=== PATIENT | female | born 1955 | race Caucasian/White ===

== ENCOUNTER → 2016-11-22 | Outpatient (CLI) | payer MEDICARE, MEDICAID ==
--- NOTE | 2016-11-22 13:51 | Diagnostic Imaging Report ---
INDICATION: Right hip pain. COMPARISON: None. FINDINGS: Two views of the right hip show no fractures, dislocations, or other acute bony abnormalities identified. Joint spaces are well maintained throughout. The soft tissues appear unremarkable. No radiopaque foreign bodies are identified. IMPRESSION: No acute fractures or dislocations of the right hip. Dictated by: Dictated on workstation # [id number]
== END ==
LOC: RAD 13:17
PROVIDERS: ATTEND Family Medicine
DX: M25.551 Pain in right hip (principal)
CPT/HCPCS: 73502

== ENCOUNTER 2016-12-27 07:06 | Emergency (ER) | payer MEDICARE, MEDICAID ==
[~2016-12-27] VITALS: Ht 170.2 cm; Wt 77.1 kg
[2016-12-27] MEDS ORDERED: TETANUS,DIPTH,PERTUSS P/F (BOOSTRIX) 0.5 ML VIAL IM ONE (07:45)
[2016-12-27] MEDS ORDERED: L.E.T. SYRINGE 5 ML TOP ONE (07:45)
--- NOTE | 2016-12-27 08:13 | ED Fall/Injury ---
General Chief Complaint: Trauma-Non Activation Stated Complaint: FALL/HEAD LAC Nursing Triage Note: PT BROUGHT TO ED BY STAFF, PT FELL AT HOME TODAY, SLIPPED IN BATHROOM AND HIT HEAD HAS APPROX 2CM LAC ABOVE R EYE. BLEEDING CONTROLLED SMALL AMOUNT OF SWELLING NOTED. PT FROM RETIREMENT AND HAS STAFF PRESENT. Source: caregiver Exam Limitations: clinical condition History of Present Illness Time seen by provider: 07:25 Initial Comments This 61-year-old woman with MR and autism is brought to the emergency room by a care provider with complaints of fall and head injury. Fall was witnessed by the nighttime care provider who stated patient slipped on the hard floor carrying her clothes out of the bathroom. She struck her head on the corner of the wall. There was no loss of consciousness and no vomiting. Patient cannot communicate symptoms as she is nonverbal. Behavior has been relatively normal except patient is grinding her teeth more than usual and is slightly hyper. There are no other obvious injuries. Care provider does not believe patient injured her neck and states she likely would not tolerate a c-collar. Patient appears nontender on exam of the neck and is moving her head and neck freely. She has a 2 cm laceration at the right brow. Location Injury Occurred: HOME Allergies and Home Medications Allergies Coded Allergies: No Known Drug Allergies (Unverified , 12/27/16) Constitutional: see HPI Eyes: No Symptoms Reported Ears, Nose, Mouth, Throat: see HPI Respiratory: no symptoms reported Cardiovascular: no symptoms reported Gastrointestinal: no symptoms reported Genitourinary: no symptoms reported : No Musculoskeletal: no symptoms reported Skin: see HPI Psychiatric/Neurological: See HPI Past Uutlfgq-Hyvrdh-Whxmvw Hx Patient Social History Alcohol Use: Denies Use Recreational Drug Use: No Smoking Status: Never a Smoker Recent Foreign Travel: No Contact w/Someone Who Travel: No Recent Infectious Disease Expo: No Recent Hopitalizations: No Immunizations Up To Date Tetanus Booster (TDap): Unknown Surgeries HX Surgeries: No Respiratory Hx Respiratory Disorders: No Cardiovascular Hx Cardiac Disorders: Yes (autism, OCD, MR) Neurological Hx Neurological Disorders: No Reproductive System : No Genitourinary Hx Genitourinary Disorders: No Gastrointestinal Hx Gastrointestinal Disorders: No Musculoskeletal Hx Musculoskeletal Disorders: No Endocrine Hx Endocrine Disorders: No HEENT HX ENT Disorders: No Cancer Hx Cancer: No Psychosocial Hx Psychiatric Problems: Yes (OCD, autism, and MR) Behavioral Health Disorders: Anxiety, Bipolar Integumentary HX Skin/Integumentary Disorder: No Physical Exam Vital Signs Vital Sign - Last 12Hours 12/27/16 07:10 Temp 97.4 Pulse 100 Resp 18 B/P (MAP) 140/92 Pulse Ox 96 Capillary Refill : Less Than 3 Seconds General Appearance: WD/WN, mild distress (teeth grinding) HEENT: PERRL/EOMI, normal ENT inspection, TMs normal, other (no obvious dental injury. 2 cm laceration above the right brow) Neck: non-tender, full range of motion, supple, normal inspection Cardiovascular: regular rate, rhythm, no edema, no murmur Respiratory: lungs clear, normal breath sounds, no respiratory distress, no accessory muscle use Gastrointestinal: normal bowel sounds, non tender, soft Extremities: non-tender, normal inspection, no pedal edema Neurologic/Psychiatric: no motor/sensory deficits, alert Skin: normal color, warm/dry Alicia Coma Score Best Eye Response: (4) Open Spontaneously Best Verbal Response: (5) Oriented (at baseline) Best Motor Response: (6) Obeys Commands Laceration Repair : Wound Location: Face Wound Length (cm): 2 Wound's Depth, Shape: linear, sub Q Wound Explored: clean Irrigated w/ Saline (ccs): 100 Betadine Prep?: Yes Suture: Prolene Suture Size: 5-0 Number of Sutures: 2 Sterile Dressing Applied?: Yes Progress Wound was anesthetized with LET. Skin and wound were cleaned with sterile saline and chlorhexidine soap. Wound was then rinsed with sterile saline. Betadine was applied. Two 5-0 Prolene sutures were placed to approximate the wound. Patient tolerated the procedure well. Sutures were selected rather than glue because of patient's picking behaviors. Care provider felt sutures would be more appropriate. Progress/Results/Core Measures Results/Orders My Orders Orders - KHANG GRECO MD Ct Head/Cervical Spine Wo (12/27/16 07:34) Let Solution (Let Solution) (12/27/16 07:45) Dipht,Pertuss(Acell),Tet Adult (Boostrix (12/27/16 07:45) Medications Given in ED Current Medications Medications Dose Ordered Sig/Bernardino Route Start Time Stop Time Status Last Admin Dose Admin Diphtheria/ Tetanus/Acell Pertussis 0.5 ml ONCE ONCE IM 12/27/16 07:45 12/27/16 07:46 DC 12/27/16 08:12 0.5 ML Tetracaine/ Epinephrine/ Lidocaine 1 ea ONCE ONCE TOP 12/27/16 07:45 12/27/16 07:46 DC 12/27/16 07:42 1 EA Vital Signs/I&O Vital Sign - Last 12Hours 12/27/16 12/27/16 07:10 09:00 Temp 97.4 Pulse 100 90 Resp 18 18 B/P (MAP) 140/92 Pulse Ox 96 98 Blood Pressure Mean: 108 Progress Note : Progress Note Wound was approximated with suture. Boostrix tetanus immunization was administered. CT scan was negative for acute injuries. Diagnostic Imaging Diagonstic Imaging: CT Plain Films/CT/US/NM/MRI: c-spine, head Comments CT head and cervical spine viewed by me. Report reviewed. See report below: NAME: ARIELLE HUBBARD MED REC#: [id number] PT STATUS: REG ER : 1955 PHYSICIAN: KHANG GRECO MD ADMIT DATE: 12/27/16/ER Draft Date of Exam:12/27/16 CT HEAD/CERVICAL SPINE WO PROCEDURE: CT head and CT cervical spine without contrast. TECHNIQUE: Multiple contiguous axial images were obtained through the brain and cervical spine without the use of intravenous contrast. Sagittal and coronal reformations through the cervical spine were then performed. INDICATION: Fall. Laceration to the head. Cut above the right eye The ventricles are normal in size, shape and position. There is no acute parenchymal hemorrhage, edema or mass. There is no extra-axial mass or hemorrhage. There is no skull fracture. There is mild scalp edema in the right frontal region. There is normal height and alignment of the cervical vertebral bodies. There are mild degenerative changes present. There is no spinal canal encroachment. There is no fracture or other acute abnormality. IMPRESSION: CT of the head shows no acute intracranial abnormality with a scalp laceration on the right. CT of the cervical spine shows degenerative changes with no acute abnormality. Dictated on workstation # [id number] Dict: 12/27/1603 Trans: 12/27/16 0814 [facility] [place] [id number] Interpreted by: CAROL BRAN MD Departure Impression Impression: Primary Impression: Fall on same level from slipping Qualified Codes: W01.0XXA - Fall on same level from slipping, tripping and stumbling without subsequent striking against object, initial encounter Additional Impression: Laceration of forehead Qualified Codes: S01.81XA - Laceration without foreign body of other part of head, initial encounter Disposition: 01 HOME, SELF-CARE Condition: Improved Departure-Patient Inst. Decision time for Depature: 08:28 Referrals: EVE SOSA DO (PCP/Family) Primary Care Physician Patient Instructions: Laceration Repair With Stitches (DC) Add. Discharge Instructions: Keep the wound clean and dry except for usual bathing. Do not scrub directly over the sutures. Do not submerge until sutures are removed. Have sutures removed in 5-7 days. You may return to the emergency room to have them removed. You may cover sutures with a Band-Aid. Antibiotic ointment may be used to prevent dressing from sticking to the wound. Monitor the wound for infection. Signs of infection would include increasing swelling, increasing redness, fever, puslike drainage, or increasing pain. Return to care if you notice these symptoms. Return to emergency room if she develops vomiting, increased pain, or any other unusual symptoms. All discharge instructions reviewed with patient and/or family. Voiced understanding. KHANG GRECO MD Dec 27, 2016 08:13
[2016-12-27 09:00] VITALS: BP 136/90
== END 2016-12-27 09:01 | disposition home or self-care (01) ==
LOC: EDUNIT# 07:06 → ER 07:08
DX: S09.90XA Unspecified injury of head, initial encounter (principal); S01.81XA Laceration without foreign body of other part of head, initial encounter; F84.0 Autistic disorder; F42.9 Obsessive-compulsive disorder, unspecified; F41.9 Anxiety disorder, unspecified; F31.9 Bipolar disorder, unspecified; Z23 Encounter for immunization; W01.198A Fall on same level from slipping, tripping and stumbling with subsequent striking against other object, initial encounter; Y92.002 Bathroom of unspecified non-institutional (private) residence as the place of occurrence of the external cause
CPT/HCPCS: 12011; 70450; 72125; 90471; 90715

== ENCOUNTER 2017-09-25 19:19 | Inpatient (IN) | payer MEDICARE, MEDICAID ==
[~2017-09-25] VITALS: Ht 175.3 cm; Wt 64.6 kg
[2017-09-25] VITALS (12 sets, daily range): BP systolic 100–133; BP diastolic 65–106
[2017-09-25 19:41] LABS: ABG BASE EXCESS -7.9 MMOL/L (-2.5-2.5); ABG OXYGEN SATURATION 100 % (94-100); ABG PCO2 39 MMHG (35-45); ABG PO2 154 MMHG (79-93); ABG TCO2 18.9 MMOL/L (21.0-31.0)
[2017-09-25 19:46] LABS: BASOPHILS % (AUTO) 0 % (0-10); EOSINOPHILS # (AUTO) 0.1 10^3/uL (0.0-0.3); EOSINOPHILS % (AUTO) 1 % (0-10); HEMATOCRIT 21 % (35-52); LYMPHOCYTES # (AUTO) 1.3 X 10^3 (1.0-4.0); LYMPHOCYTES % (AUTO) 14 % (12-44); MEAN CORPUSCULAR HEMOGLOBIN 19 PG (25-34); MEAN CORPUSCULAR HGB CONC 28 G/DL (32-36); MEAN CORPUSCULAR VOLUME 67 FL (80-99); MEAN PLATELET VOLUME 9.6 FL (7.4-10.4); MONOCYTES # (AUTO) 0.8 X 10^3 (0.0-1.0); MONOCYTES % (AUTO) 9 % (0-12); NEUTROPHILS # (AUTO) 7.1 X 10^3 (1.8-7.8); NEUTROPHILS % (AUTO) 76 % (42-75); PLATELET COUNT 563 10^3/uL (130-400); RED BLOOD COUNT 3.07 10^6/uL (4.35-5.85); RED CELL DISTRIBUTION WIDTH 18.7 % (10.0-14.5); WHITE BLOOD COUNT 9.3 10^3/uL (4.3-11.0)
[2017-09-25 19:46] LABS: ABG PH 7.28 (7.37-7.43); ALLENS TEST POSITIVE; INSPIRED O2 15 L; VENTILATOR NO
[2017-09-25 19:50] LABS: HEMOGLOBIN 5.8 G/DL (11.5-16.0)
[2017-09-25 19:51] LABS: BILIRUBIN,URINE NEGATIVE (NEGATIVE); CLARITY,URINE CLEAR; COLOR,URINE YELLOW; GLUCOSE, URINE (UA) NEGATIVE (NEGATIVE); KETONES,URINE 1+ (NEGATIVE); LEUKOCYTE ESTERASE ,URINE 3+ (NEGATIVE); NITRITE,URINE NEGATIVE (NEGATIVE); PH,URINE 5 (5-9); PROTEIN,URINE 1+ (NEGATIVE); UROBILINOGEN,URINE NORMAL (NORMAL)
--- NOTE | 2017-09-25 19:55 | ED Neurological Problem ---
General Chief Complaint: Altered Mental Status Stated Complaint: SEIZURES Source: patient Exam Limitations: no limitations History of Present Illness Date Seen by Provider: Sep 25, 2017 Time Seen by Provider: 19:55 Initial Comments [facility] ER [facility] in [place]. Patient is mentally retarded and autistic. She's been unusually lethargic today and holding her head as if she heard according to staff. This evening after dinner she appeared to have 2 episodes of seizure-like activity. She does not have a known seizure disorder but her twin sister does. Upon arrival to ER her oxygen saturation is 55-60% with good waveform and minimal respiratory effort. She has a very wet sounding cough. She is afebrile. Severity: moderate Allergies and Home Medications Allergies Coded Allergies: No Known Drug Allergies (Unverified , 12/27/16) Home Medications Acetaminophen 325 Mg Tablet, 650 MG PO Q4H PRN for PAIN-MILD, (Reported) TAKES 2 (325MG) TABLETS Bisacodyl 5 Mg Tablet.dr, 10 MG PO MoWeFr@1600, (Reported) TAKES 2 (5MG) TABLETS MON, WED, MON @ 1600 Clonazepam 2 Mg Tablet, 2 MG PO 1600, (Reported) Docusate Calcium 240 Mg Capsule, 240 MG PO DAILY, (Reported) Loratadine 10 Mg Tablet, 10 MG PO DAILY, (Reported) Magnesium Hydroxide 400 Mg/5 Ml Oral.susp, 30 ML PO DAILY PRN for CONSTIPATION- 7TH LINE, (Reported) Multivitamin 1 Each Tablet, 1 TAB PO DAILY, (Reported) Polyethylene Glycol 3350 17 Gm Powd.pack, 17 GM PO BID PRN for CONSTIPATION-2ND LINE, (Reported) Promethazine HCl/Codeine 118 Ml Syrup, 10 ML PO Q8H PRN for COUGH, (Reported) Sennosides/Docusate Sodium 1 Each Tablet, 1 TAB PO DAILY, (Reported) Patient Home Medication List Home Medication List Reviewed: Yes Constitutional: see HPI Eyes: No Symptoms Reported Ears, Nose, Mouth, Throat: no symptoms reported Respiratory: see HPI, cough Cardiovascular: no symptoms reported Genitourinary: no symptoms reported Musculoskeletal: see HPI Skin: no symptoms reported Psychiatric/Neurological: No Symptoms Reported Endocrine: No Symptoms Reported Past Wahhyuw-Rzcbya-Eogaqt Hx Patient Social History Alcohol Use: Denies Use Recreational Drug Use: No Smoking Status: Unknown if Ever Smoked Recent Hopitalizations: No Physical Abuse: No Sexual Abuse: No Mistreated: No Fear: No Immunizations Up To Date Tetanus Booster (TDap): Unknown Surgeries History of Surgeries: No Respiratory History of Respiratory Disorde: No Cardiovascular History of Cardiac Disorders: Yes (autism, OCD, MR) Neurological History of Neurological Disord: No Genitourinary History of Genitourinary Disor: No Gastrointestinal History of Gastrointestinal Di: Yes (nausea) Gastrointestinal Disorders: Chronic Constipation Musculoskeletal History of Musculoskeletal Dis: No Endocrine History of Endocrine Disorders: No Cancer History of Cancer: No Psychosocial History of Psychiatric Problem: Yes (AUTISM,OCD,INTELLECTUAL DISORDER) Behavioral Health Disorders: Anxiety, Bipolar Suicide Risk Score: 0 Integumentary History of Skin or Integumenta: No Physical Exam Vital Signs Vital Signs - First Documented 09/25/17 09/25/17 09/25/17 19:36 19:47 21:14 Temp 98.0 Pulse 81 Resp 17 B/P (MAP) 101/58 (72) Pulse Ox 100 O2 Delivery Non Rebreather O2 Flow Rate 100.00 FiO2 40 Capillary Refill : General Appearance: WD/WN, no apparent distress, other (does not respond to verbal stimuli. ) HEENT: PERRL/EOMI, normal ENT inspection Neck: non-tender, full range of motion Respiratory: no accessory muscle use, rales, rhonchi Cardiovascular: regular rate, rhythm, no murmur Gastrointestinal: normal bowel sounds, non tender, soft Extremities: normal range of motion, non-tender Skin: normal color, warm/dry Focused Exam Evaluation Lactate Level Laboratory Tests 09/25/17 19:35: Lactic Acid Level 10.66*H 09/25/17 21:45: Lactic Acid Level 1.75 Lactic Acid Level Laboratory Tests Test 09/25/17 19:35 09/25/17 21:45 Lactic Acid Level 10.66 MMOL/L (0.50-2.00) *H 1.75 MMOL/L (0.50-2.00) Laceration Repair : Suture Size: 5-0 Progress/Results/Core Measures Results/Orders Lab Results Laboratory Tests Test 09/25/17 19:28 09/25/17 19:29 09/25/17 19:35 09/25/17 19:41 Range/Units White Blood Count 9.3 4.3-11.0 10^3/uL Red Blood Count 3.07 L 4.35-5.85 10^6/uL Hemoglobin 5.8 *L 11.5-16.0 G/DL Hematocrit 21 L 35-52 % Mean Corpuscular Volume 67 L 80-99 FL Mean Corpuscular Hemoglobin 19 L 25-34 PG Mean Corpuscular Hemoglobin Concent 28 L 32-36 G/DL Red Cell Distribution Width 18.7 H 10.0-14.5 % Platelet Count 563 H 130-400 10^3/uL Mean Platelet Volume 9.6 7.4-10.4 FL Neutrophils (%) (Auto) 76 H 42-75 % Lymphocytes (%) (Auto) 14 12-44 % Monocytes (%) (Auto) 9 0-12 % Eosinophils (%) (Auto) 1 0-10 % Basophils (%) (Auto) 0 0-10 % Neutrophils # (Auto) 7.1 1.8-7.8 X 10^3 Lymphocytes # (Auto) 1.3 1.0-4.0 X 10^3 Monocytes # (Auto) 0.8 0.0-1.0 X 10^3 Eosinophils # (Auto) 0.1 0.0-0.3 10^3/uL Basophils # (Auto) 0.0 0.0-0.1 10^3/uL Sodium Level 133 L 135-145 MMOL/L Potassium Level 3.9 3.6-5.0 MMOL/L Chloride Level 103 98-107 MMOL/L Carbon Dioxide Level 17 L 21-32 MMOL/L Anion Gap 13 5-14 MMOL/L Blood Urea Nitrogen 13 7-18 MG/DL Creatinine 1.04 0.60-1.30 MG/DL Estimat Glomerular Filtration Rate 54 BUN/Creatinine Ratio 13 Glucose Level 174 H 70-105 MG/DL Calcium Level 8.5 8.5-10.1 MG/DL Total Bilirubin 0.1 0.1-1.0 MG/DL Aspartate Amino Transf (AST/SGOT) 17 5-34 U/L Alanine Aminotransferase (ALT/SGPT) 11 0-55 U/L Alkaline Phosphatase 66 40-136 U/L Troponin I < 0.30 <0.30 NG/ML Total Protein 7.3 6.4-8.2 GM/DL Albumin 3.7 3.2-4.5 GM/DL Blood Gas Puncture Site LEFT RADIAL Blood Gas Patient Temperature 98.0 Arterial Blood pH 7.28 *L 7.37-7.43 Arterial Blood Partial Pressure CO2 39 35-45 MMHG Arterial Blood Partial Pressure O2 154 H 79-93 MMHG Arterial Blood HCO3 18 L 23-27 MMOL/L Arterial Blood Total CO2 18.9 L 21.0-31.0 MMOL/L Arterial Blood Oxygen Saturation 100 94-100 % Arterial Blood Base Excess -7.9 L -2.5-2.5 MMOL/L Pedro Test POSITIVE Blood Gas Ventilator Setting NO Blood Gas Inspired Oxygen 15 L Lactic Acid Level 10.66 *H 0.50-2.00 MMOL/L Urine Color YELLOW Urine Clarity CLEAR Urine pH 5 5-9 Urine Specific Paulina 1.030 H 1.016-1.022 Urine Protein 1+ H NEGATIVE Urine Glucose (UA) NEGATIVE NEGATIVE Urine Ketones 1+ H NEGATIVE Urine Nitrite NEGATIVE NEGATIVE Urine Bilirubin NEGATIVE NEGATIVE Urine Urobilinogen NORMAL NORMAL MG/DL Urine Leukocyte Esterase 3+ H NEGATIVE Urine RBC (Auto) NEGATIVE NEGATIVE Urine RBC NONE /HPF Urine WBC 10-25 H /HPF Urine Crystals NONE /LPF Urine Bacteria MODERATE H /HPF Urine Casts NONE /LPF Urine Mucus SMALL H /LPF Urine Culture Indicated YES Test 09/25/17 21:45 Range/Units Lactic Acid Level 1.75 0.50-2.00 MMOL/L My Orders Orders - VIOLETA HERNANDEZ APRN Cbc With Automated Diff (09/25/17 19:37) Comprehensive Metabolic Panel (09/25/17 19:37) Ua Culture If Indicated (09/25/17 19:37) Saline Lock/Iv-Start (09/25/17 19:37) Ct Head Wo (09/25/17 19:37) Chest 1 View, Ap/Pa Only (09/25/17 19:37) Arterial Blood Gas (09/25/17 19:37) Blood Culture (09/25/17 19:37) Lactic Acid Analyzer (09/25/17 19:37) Troponin I (09/25/17 19:37) Ekg Tracing (09/25/17 19:37) Type And Screen (09/25/17 19:50) Red Cells Leukocytes Reduced (09/25/17 19:50) Urine Culture (09/25/17 19:41) Lactated Ringers (Lr 1000 Ml Iv Solution (09/25/17 20:15) Ns Iv 1000 Ml (Sodium Chloride 0.9%) (09/25/17 20:59) Piperacillin Sodium/Tazobactam (Zosyn Vi (09/25/17 21:15) Ns Iv 1000 Ml (Sodium Chloride 0.9%) (09/25/17 21:30) Lorazepam Injection (Ativan Injection) (09/25/17 21:50) Lorazepam Injection (Ativan Injection) (09/25/17 22:00) Medications Given in ED Current Medications Medications Dose Ordered Sig/Bernardino Route Start Time Stop Time Status Last Admin Dose Admin Lorazepam 1 mg ONCE ONCE IVP 09/25/17 22:00 09/25/17 22:01 DC 09/25/17 21:55 1 MG Vital Signs/I&O Vital Sign - Last 12Hours 09/25/17 09/25/17 09/25/17 09/25/17 19:36 19:47 21:14 21:59 Temp 98.0 98.0 Pulse 81 83 71 90 Resp 17 14 12 20 B/P (MAP) 101/58 (72) 119/65 133/77 Pulse Ox 100 96 100 100 O2 Delivery Non Rebreather NIV Bilevel NIV Bilevel O2 Flow Rate 100.00 10.00 FiO2 40 Progress Note : Progress Note Normal for herIt is unclear whether the seizures were caused by the hypoxia as noted on arrival or if the hypoxia was a result of postictal state and bradypnea /aspiration. She does meet criteria for the 30ml/kg fluid bolus given the lactic acid of 10. Departure Communication (Admissions) Time/Spoke to Admitting Phy: 21:[address] cMnamara. We will admit, consult surgery, consult Dr. Burroughs, [facility]. Progress Notes 1999- oxygen saturation 55-60% with good waveform on arrival. She was given oxygen via nasal cannula high flow for a few seconds then transitioned to a nonrebreather for a few minutes which increased to 94%. She was then increased again to BiPAP which increased oxygen saturation to 100%. 2156- patient did have observed 30 seconds to 1 minute seizure like activity here in the emergency room which terminated without treatment. Blood pressure remained adequate at 135/80, heart rate 88, oxygen saturation 100% on BiPAP at 60% FiO2 her BiPAP [id number] Impression Impression: Primary Impression: Severe sepsis Additional Impressions: Witnessed seizure-like activity Hypoxia Right lower lobe pneumonia Disposition: 01 HOME, SELF-CARE Condition: Stable Admissions Decision to Admit Reason: Admit from ER (General) Decision to Admit/Date: Sep 25, 2017 Time/Decision to Admit Time: 22:06 Departure-Patient Inst. Referrals: EVE SOSA DO (PCP/Family) Primary Care Physician VIOLETA HERNANDEZ ORGAN FIXER Sep 25, 2017 19:55
[2017-09-25 20:00] LABS: BACTERIA,URINE MODERATE /HPF
[2017-09-25 20:00] LABS: ALANINE AMINOTRANSFERASE 11 U/L (0-55); ALBUMIN 3.7 GM/DL (3.2-4.5); ALKALINE PHOSPHATASE 66 U/L (40-136); BILIRUBIN,TOTAL 0.1 MG/DL (0.1-1.0); BUN/CREATININE RATIO 13; CALCIUM 8.5 MG/DL (8.5-10.1); CARBON DIOXIDE 17 MMOL/L (21-32); CHLORIDE 103 MMOL/L (98-107); CREATININE SERUM 1.04 MG/DL (0.60-1.30); GFR ESTIMATED 54; GLUCOSE 174 MG/DL (70-105); POTASSIUM 3.9 MMOL/L (3.6-5.0); SODIUM 133 MMOL/L (135-145); TOTAL PROTEIN 7.3 GM/DL (6.4-8.2)
[2017-09-25] MEDS ORDERED: BISA5TAB19 PO (20:04)
[2017-09-25] MEDS ORDERED: BISA5TAB8 (20:04)
[2017-09-25] MEDS ORDERED: CLON2TAB3 PO (20:04)
[2017-09-25] MEDS ORDERED: MU V (20:04)
[2017-09-25] MEDS ORDERED: [UNRECOGNIZED DRUG - CODE] PO (20:04)
[2017-09-25] MEDS ORDERED: SENN1TAB6 PO (20:04)
[2017-09-25] MEDS ORDERED: LACTATED RINGERS 1,000 ML IV SCH (20:15)
[2017-09-25] MEDS ORDERED: NS IV 1000 ML 1,000 ML ONE (20:59)
[2017-09-25] MEDS ORDERED: PIPERACILLIN SODIUM/TAZOBACTAM 4.5 GM in NS (IVPB) 100 ML IV ONE (21:15)
--- NOTE | 2017-09-25 21:24 | Diagnostic Imaging Report ---
PROCEDURE: CT head without contrast. TECHNIQUE: Multiple contiguous axial images were obtained through the brain without the use of intravenous contrast. INDICATION: Seizure. Unresponsive. COMPARISON: CT head without contrast 12/27/2016. FINDINGS: No CT evidence of acute infarction. Incidental cavum septum pellucidum et vergae. No intracranial hemorrhage, mass effect, hydrocephalus or extra-axial fluid collections. Osseous structures are intact. The visualized paranasal sinuses and mastoids are clear. IMPRESSION: No acute intracranial CT findings. Dictated by: Dictated on workstation # [id number]
[2017-09-25] MEDS ORDERED: NS IV 1000 ML 1,000 ML IV SCH (21:30)
[2017-09-25] MEDS ORDERED: LORazepam INJ 2 MG/ML (ATIVAN) VIAL ONE (21:50)
[2017-09-25] MEDS ORDERED: LORazepam INJ 2 MG/ML (ATIVAN) VIAL IVP ONE (22:00)
--- NOTE | 2017-09-25 22:00 | Diagnostic Imaging Report ---
EXAM: CHEST 1 VIEW, AP/PA ONLY INDICATION: Seizure. Hypoxia. COMPARISON: None. FINDINGS: Elevation of the right hemidiaphragm. Normal heart size and central pulmonary vascularity. Mild atelectasis or infiltrate in the medial right lung base. No pleural effusion or pneumothorax. No acute osseous findings. IMPRESSION: Mild atelectasis or infiltrate in the medial right lung base. Dictated by: Dictated on workstation # [id number]
[2017-09-25] MEDS ORDERED: NS IV PRN (22:45)
[2017-09-25] MEDS ORDERED: VANCOMYCIN 1 GM/NS 250 ML IVPB IV SCH ×2 (22:45)
[2017-09-25] MEDS ORDERED: CATHETER FLUSH 10 ML SYR IV PRN (22:45)
[2017-09-25] MEDS ORDERED: LORazepam INJ 2 MG/ML (ATIVAN) VIAL IV PRN (22:45)
[2017-09-25] MEDS: NOREPINEPHRINE 4 MG in NS (IVPB) 250 ML IV SCH (23:03)
[2017-09-26] VITALS (22 sets, daily range): BP systolic 108–141; BP diastolic 47–133
[2017-09-26] MEDS: NS IV 1000 ML 1,000 ML IV SCH ×5 (02:39→22:20)
[2017-09-26 04:08] LABS: BASOPHILS % (AUTO) 0 % (0-10); EOSINOPHILS % (AUTO) 0 % (0-10); HEMATOCRIT 27 % (35-52); HEMOGLOBIN 8.4 G/DL (11.5-16.0); LYMPHOCYTES % (AUTO) 9 % (12-44); MEAN CORPUSCULAR HEMOGLOBIN 22 PG (25-34); MEAN CORPUSCULAR HGB CONC 31 G/DL (32-36); MEAN CORPUSCULAR VOLUME 71 FL (80-99); MONOCYTES # (AUTO) 0.7 X 10^3 (0.0-1.0); MONOCYTES % (AUTO) 6 % (0-12); NEUTROPHILS % (AUTO) 85 % (42-75); PLATELET COUNT 431 10^3/uL (130-400); RED BLOOD COUNT 3.84 10^6/uL (4.35-5.85); RED CELL DISTRIBUTION WIDTH 21.2 % (10.0-14.5); WHITE BLOOD COUNT 11.7 10^3/uL (4.3-11.0)
[2017-09-26 04:29] LABS: ALANINE AMINOTRANSFERASE 13 U/L (0-55); ALBUMIN 3.4 GM/DL (3.2-4.5); ALKALINE PHOSPHATASE 65 U/L (40-136); BUN/CREATININE RATIO 16; CALCIUM 8.3 MG/DL (8.5-10.1); CARBON DIOXIDE 19 MMOL/L (21-32); CHLORIDE 109 MMOL/L (98-107); CREATININE SERUM 0.77 MG/DL (0.60-1.30); GFR ESTIMATED > 60; GLUCOSE 118 MG/DL (70-105); MAGNESIUM 2.2 MG/DL (1.8-2.4); PHOSPHORUS 3.1 MG/DL (2.3-4.7); POTASSIUM 4.1 MMOL/L (3.6-5.0); SODIUM 136 MMOL/L (135-145); TOTAL PROTEIN 6.8 GM/DL (6.4-8.2)
[2017-09-26] MEDS: PIPERACILLIN SODIUM/TAZOBACTAM 4.5 GM in NS (IVPB) 100 ML IV SCH ×3 (05:00→22:19)
[2017-09-26] MEDS: CATHETER FLUSH 10 ML SYR IV SCH ×3 (05:05→22:20)
[2017-09-26] MEDS ORDERED: POTASSIUM CL 10MEQ/50ML IVPB 50 ML IV SCH (06:00)
[2017-09-26] MEDS ORDERED: MAGNESIUM 1 GM/100 ML IVPB 100 ML IV SCH (06:00)
[2017-09-26] MEDS ORDERED: KCL 20 MEQ TAB (K-DUR) PO SCH (06:00)
--- NOTE | 2017-09-26 06:52 | Pulmonary Consultation ---
History of Present Illness History of Present Illness Date of Consultation 09/26/17 06:45 Time Seen by Provider: 06:45 Date of Admission History of Present Illness 62yo with hx of MR presented via EMS from [facility] secondary to worsening lethargy and seizure like activity. Upon ED arrival her Sp02 was 55-60%. Pt was found to have acute UTI and pneumonia upon ED admission. PT had another seizure in the ED. Unable to obtain ROS secondary to MS. I am consulted for ICU management. Allergies and Home Medications Allergies Coded Allergies: No Known Drug Allergies (Unverified , 12/27/16) Home Medications Acetaminophen 325 Mg Tablet, 650 MG PO Q4H PRN for PAIN-MILD, (Reported) TAKES 2 (325MG) TABLETS Azithromycin 250 Mg Tablet, 250 MG PO DAILY Prescribed by: PIETRO BARAJAS on 09/29/17 1225 Bisacodyl 5 Mg Tablet.dr, 10 MG PO MoWeFr@1600, (Reported) TAKES 2 (5MG) TABLETS MON, WED, FRI @ 1600 Cephalexin 250 Mg Capsule, 500 MG PO TID Prescribed by: PIETRO BARAJAS on 09/29/17 1225 Clonazepam 2 Mg Tablet, 2 MG PO 1600, (Reported) Docusate Calcium 240 Mg Capsule, 240 MG PO DAILY, (Reported) Furosemide 40 Mg Tablet, 40 MG PO DAILY Prescribed by: PIETRO BARAJAS on 09/29/17 1225 Levetiracetam 500 Mg Tablet, 500 MG PO BID Prescribed by: PIETRO BARAJAS on 09/29/17 1225 Loratadine 10 Mg Tablet, 10 MG PO DAILY, (Reported) Magnesium Hydroxide 400 Mg/5 Ml Oral.susp, 30 ML PO DAILY PRN for CONSTIPATION- 7TH LINE, (Reported) Multivitamin 1 Each Tablet, 1 TAB PO DAILY, (Reported) Polyethylene Glycol 3350 17 Gm Powd.pack, 17 GM PO BID PRN for CONSTIPATION-2ND LINE, (Reported) Promethazine HCl/Codeine 118 Ml Syrup, 10 ML PO Q8H PRN for COUGH, (Reported) Sennosides/Docusate Sodium 1 Each Tablet, 1 TAB PO DAILY, (Reported) Past Wpcyveq-Qpzmvq-Vdcscg Hx Patient Social History Alcohol Use: Denies Use Recreational Drug Use: No Smoking Status: Never a Smoker Recent Foreign Travel: No Contact w/Someone Who Travel: No Recent Infectious Disease Expo: No Recent Hopitalizations: No Physical Abuse: No Sexual Abuse: No Mistreated: No Fear: No Immunizations Up To Date Tetanus Booster (TDap): Unknown Seasonal Allergies Seasonal Allergies: Yes Surgeries History of Surgeries: No Respiratory History of Respiratory Disorde: No Cardiovascular History of Cardiac Disorders: No Neurological History of Neurological Disord: No (autism, OCD, MR) Genitourinary History of Genitourinary Disor: No Gastrointestinal History of Gastrointestinal Di: Yes (nausea) Gastrointestinal Disorders: Chronic Constipation Musculoskeletal History of Musculoskeletal Dis: No Endocrine History of Endocrine Disorders: No HEENT History of HEENT Disorders: No Cancer History of Cancer: No Psychosocial History of Psychiatric Problem: Yes (AUTISM,OCD,INTELLECTUAL DISORDER) Behavioral Health Disorders: Anxiety, Bipolar Suicide Risk Score: 0 Integumentary History of Skin or Integumenta: No Blood Transfusions History of Blood Disorders: No Family Medical History Family Medial History: Seizure disorder twin sister Review of Systems Time Seen by Provider: 06:26 Exam Exam Vital Signs Date Time Temp Pulse Resp B/P (MAP) Pulse Ox O2 Delivery O2 Flow Rate FiO2 09/26/17 06:00 64 18 119/66 (83) 94 Room Air 09/26/17 05:00 73 22 112/58 (76) 93 Room Air 09/26/17 04:00 96 Room Air 2.00 09/26/17 04:00 75 20 119/66 (83) 93 Room Air 09/26/17 03:30 99.4 96 Room Air 09/26/17 03:00 75 20 121/63 (82) 99 Room Air 09/26/17 02:00 74 23 116/71 (86) 99 Nasal Cannula 2.00 09/26/17 01:16 98.1 65 116/59 97 Nasal Cannula 2.00 09/26/17 01:00 60 09/26/17 01:00 60 20 116/59 (78) 100 Nasal Cannula 2.00 09/26/17 00:45 74 20 108/70 (83) 100 Nasal Cannula 2.00 09/26/17 00:30 71 22 109/71 (84) 100 Nasal Cannula 2.00 09/26/17 00:15 73 13 117/71 (86) 97 Nasal Cannula 2.00 09/26/17 00:00 98 Nasal Cannula 2.00 09/26/17 00:00 92 18 126/108 (114) 93 Nasal Cannula 2.00 09/25/17 23:45 95 33 127/106 (113) 95 NIV Bilevel 40.00 09/25/17 23:30 96 30 120/98 (105) 100 NIV Bilevel 40.00 09/25/17 23:15 80 18 100/87 (91) 100 NIV Bilevel 40.00 09/25/17 23:06 97.4 81 17 122/82 99 NIV Bilevel 40 09/25/17 23:00 90 16 122/82 (95) 100 NIV Bilevel 40.00 09/25/17 22:53 97.2 89 20 131/77 99 NIV Bilevel 40 09/25/17 22:45 84 23 131/77 (95) 100 NIV Bilevel 40.00 09/25/17 22:45 NIV Bilevel 40.00 09/25/17 22:44 97.2 88 133/90 100 NIV Bilevel 60 09/25/17 22:40 82 13 100 60.00 09/25/17 22:30 105 14 133/90 (104) 100 NIV Bilevel 60.00 09/25/17 22:22 81 09/25/17 22:19 97.2 89 16 128/78 (95) 100 NIV Bilevel 60.00 09/25/17 22:10 100 NIV Bilevel 60.00 09/25/17 21:59 90 20 133/77 100 NIV Bilevel 09/25/17 21:14 98.0 71 12 119/65 100 NIV Bilevel 40 09/25/17 19:47 98.0 83 14 101/58 (72) 96 Non Rebreather 10.00 09/25/17 19:36 81 17 100 100.00 I & O 09/26/17 07:00 Intake Total 2620 ml Output Total 1250 ml Balance 1370 ml General Appearance: Anxious, Mild Distress HEENT: PERRL/EOMI, Normal ENT Inspection, Pharynx Normal Neck: Full Range of Motion, Normal Inspection, Supple Respiratory: No Accessory Muscle Use, No Respiratory Distress, Decreased Breath Sounds Capillary Refill: Greater Than 3 Seconds Gastrointestinal: normal bowel sounds, non tender, soft Extremity: Normal Capillary Refill, Normal Inspection, Normal Range of Motion Neurologic/Psychiatric: Alert, Oriented x3, No Motor/Sensory Deficits, Normal Mood/Affect Skin: Normal Color, Warm/Dry Lymphatic: No Adenopathy Results Lab Laboratory Tests 09/25/17 19:28 09/26/17 03:20 Assessment/Plan Assessment/Plan -Severe Sepsis -Sepsis protocol -Continue Abx PNeumonia UTI Metabolic lactic acidosis -IVF and monitor. Seizures -ATIVAN PRN Keppra 500 IV BID 255 WANDY WHITING DO Sep 26, 2017 06:52
--- NOTE | 2017-09-26 07:22 | History & Physicial ---
History of Present Illness History of Present Illness Reason for visit/HPI Patient has severe MR and not distended. Patient had 2 seizures.. Patient has a twin sister that has seizures but she doesn't. Patient sent out to the emergency room. Pulse ox in the 50 and 60s. Hemoglobin 5. Lactic acid over 10. UA shows UTI. Chest x-ray shows pneumonia. Patient admitted to ICU for severe sepsis Date of Admission Sep 25, 2017 at 22:10 Time Seen by Provider: 07:10 I consulted on this patient on 09/26/17 07:18 Attending Physician Jarvis Sosa DO Admitting Physician Jarvis Sosa DO Consult Allergies and Home Medications Allergies Coded Allergies: No Known Drug Allergies (Unverified , 12/27/16) Patient Home Medication List Home Medication List Reviewed: No Past Zanimfb-Aexvle-Npxlea Hx Patient Social History Marrital Status: single Employed/Student: unemployed Alcohol Use: Denies Use Recreational Drug Use: No Smoking Status: Never a Smoker Physical Abuse Screen: No Sexual Abuse: No Recent Foreign Travel: No Contact w/other who traveled: No Recent Hopitalizations: No Recent Infectious Disease Expo: No Immunizations Up To Date Tetanus Booster (TDap): Unknown Seasonal Allergies Seasonal Allergies: Yes Surgeries No Respiratory No Cardiovascular No Neurological No (autism, OCD, MR) Genitourinary No Gastrointestinal Yes (nausea) Chronic Constipation Musculoskeletal No Endocrine History of Endocrine Disorders: No HEENT History of HEENT Disorders: No Cancer No Psychosocial History of Psychiatric Problem: Yes (AUTISM,OCD,INTELLECTUAL DISORDER) Behavioral Health Disorders: Anxiety, Bipolar Integumentary History of Skin or Integumenta: No Blood Transfusions History of Blood Disorders: No Family Medical History Family Hx: Seizure disorder twin sister Constitutional: weakness, other ([place]) EENTM: no symptoms reported Cardiovascular: no symptoms reported Gastrointestinal: no symptoms reported Genitourinary: no symptoms reported : No Physical Exam Vital Signs Vital Signs - First Documented 09/25/17 09/25/17 09/25/17 19:36 19:47 21:14 Temp 98.0 Pulse 81 Resp 17 B/P (MAP) 101/58 (72) Pulse Ox 100 O2 Delivery Non Rebreather O2 Flow Rate 100.00 FiO2 40 Capillary Refill : Greater Than 3 Seconds General Appearance: No Apparent Distress, WD/WN Eyes: Bilateral Eye Normal Inspection HEENT: Normal ENT Inspection Neck: Full Range of Motion, Normal Inspection Respiratory: No Accessory Muscle Use, No Respiratory Distress Cardiovascular: Regular Rate, Rhythm, No Murmur Gastrointestinal: Non Tender, Soft Assessment/Plan Assessment and Plan Severe sepsis. Hypoxia. Autistic and MR. Potassium over 10. Pneumonia. UTI. Seizure. Problems: Admission Diagnosis Admission Status: Inpatient Order (span 2 midnights) Reason for Inpatient Admission: Sepsis. Seizure. UTI. Pneumonia. Clinical Quality Measures DVT/VTE Risk/Contraindication: Risk Factor Score Per Nursin RFS Level Per Nursing on Admit: 4+=Very High JARVIS SOSA DO Sep 26, 2017 07:22
[2017-09-26] MEDS: PANTOPRAZOLE 40 MG/10 ML (PROTONIX) VIAL IV SCH (08:41)
[2017-09-26] MEDS: LEVETIRACETAM INJECTION 500 MG in NS (IVPB) 100 ML IV SCH ×3 (08:48→20:56)
[2017-09-26] MEDS ORDERED: VANCOMYCIN 1 GM/NS 250 ML IVPB IV SCH ×2 (09:00)
[2017-09-26] MEDS ORDERED: ACET325T38 PO (10:39)
[2017-09-26] MEDS ORDERED: MAGN400O7 PO (10:39)
[2017-09-26] MEDS ORDERED: LORA10TA7 PO (10:39)
[2017-09-26] MEDS ORDERED: MULT-35 PO (10:39)
[2017-09-26] MEDS ORDERED: POLY17PO6 PO (10:39)
[2017-09-26] MEDS ORDERED: CODE118S2 PO (10:39)
[2017-09-26] MEDS: NOREPINEPHRINE 4 MG in NS (IVPB) 250 ML IV SCH (11:00)
--- NOTE | 2017-09-26 11:17 | Diagnostic Imaging Report ---
INDICATION: Hypoxia and seizure. COMPARISON: 09/25/2017. FINDINGS: There is cardiomegaly. There is moderate central pulmonary venous congestion. There is some right basilar atelectasis and/or pneumonitis. There is no pneumothorax. The mediastinum is unremarkable. IMPRESSION: Cardiomegaly and moderate congestive failure with some right basilar atelectasis and/or pneumonitis. Dictated by: Dictated on workstation # [id number]
[2017-09-26] MEDS: FUROSEMIDE 40 MG/4 ML INJ (LASIX) IVP SCH (17:10)
[2017-09-26] MEDS ORDERED: FUROSEMIDE 40 MG/4 ML INJ (LASIX) IVP NR (20:00)
[2017-09-27] MEDS: NOREPINEPHRINE 4 MG in NS (IVPB) 250 ML IV SCH (01:01)
[2017-09-27] MEDS: LORazepam INJ 2 MG/ML (ATIVAN) VIAL IVP PRN ×2 (01:33→23:51)
--- NOTE | 2017-09-27 04:55 | Pulmonary Progress Note ---
Subjective Time Seen by Provider: 05:01 Subjective/Events-last exam PT appears much improved. Focused Exam Evaluation Lactate Level Laboratory Tests 09/25/17 19:35: Lactic Acid Level 10.66*H 09/25/17 21:45: Lactic Acid Level 1.75 Exam Exam Vital Signs Date Time Temp Pulse Resp B/P (MAP) Pulse Ox O2 Delivery O2 Flow Rate FiO2 09/27/17 00:00 Room Air 09/26/17 20:07 97.2 09/26/17 20:00 96 Room Air 09/26/17 17:00 94 29 116/67 (83) 91 Room Air 09/26/17 16:30 98.9 09/26/17 16:00 90 27 141/133 (136) 92 Room Air 09/26/17 16:00 96 Room Air 09/26/17 15:00 59 25 134/60 (84) 94 Room Air 09/26/17 14:08 93 2.00 09/26/17 14:00 71 20 127/65 (85) 94 Room Air 09/26/17 13:01 57 09/26/17 13:00 53 20 127/78 (94) 94 Room Air 09/26/17 12:00 100.2 09/26/17 12:00 61 22 135/76 (95) 93 Room Air 09/26/17 12:00 93 Room Air 09/26/17 11:00 54 15 125/47 (73) 96 Room Air 09/26/17 10:00 66 18 122/64 (83) 91 Room Air 09/26/17 09:00 71 18 123/82 (96) 92 Room Air 09/26/17 08:00 99.9 62 20 111/80 (90) 93 Room Air 09/26/17 08:00 93 Room Air 09/26/17 07:00 59 20 122/66 (84) 95 Room Air 09/26/17 07:00 59 09/26/17 06:00 64 18 119/66 (83) 94 Room Air 09/26/17 05:00 73 22 112/58 (76) 93 Room Air I & O 09/27/17 07:00 Intake Total 3455 ml Output Total 1900 ml Balance 1555 ml General Appearance: No Apparent Distress, WD/WN HEENT: Normal ENT Inspection Neck: Full Range of Motion, Normal Inspection Respiratory: No Accessory Muscle Use, No Respiratory Distress Cardiovascular: Regular Rate, Rhythm, No Murmur Capillary Refill: Greater Than 3 Seconds Gastrointestinal: normal bowel sounds, non tender, soft Extremity: Normal Capillary Refill, Normal Inspection Neurologic/Psychiatric: Alert Skin: Normal Color, Warm/Dry Results Lab Laboratory Tests 09/25/17 19:28 09/26/17 03:20 Assessment/Plan Assessment/Plan -Severe Sepsis with UTI- with ecoli improving -Sepsis protocol -change Abx to PO keflex Pulmonary edema -Hep lock IVF and continue Lasix PNeumonia-- improving with Abx Atelectasis Metabolic lactic acidosis- resolving -IVF and monitor. Seizures -ATIVAN PRN Keppra change to PO PT is now on RA and appears to be back at her Baseline. I am going to transfer pt to 4th floor and sign off please call with any questions. Labs are pending. 233 WANDY WHITING DO Sep 27, 2017 04:55
[2017-09-27] MEDS: CATHETER FLUSH 10 ML SYR IV SCH ×3 (06:24→20:14)
[2017-09-27 06:47] VITALS: BP 123/57
[2017-09-27 08:00] VITALS: BP 121/62
--- NOTE | 2017-09-27 08:22 | Progress Note (SOAP) ---
Subjective Time Seen by Provider: 08:20 Subjective/Events-last exam Patient doing much better. Lab tests and x-rays pending. Severe sepsis. UTI. Pulmonary edema. Pneumonia. Metabolic lactic acidosis. Seizures Focused Exam Evaluation Lactate Level Laboratory Tests 09/25/17 19:35: Lactic Acid Level 10.66*H 09/25/17 21:45: Lactic Acid Level 1.75 Objective Exam Vital Signs Date Time Temp Pulse Resp B/P (MAP) Pulse Ox O2 Delivery O2 Flow Rate FiO2 09/27/17 06:47 98.0 79 18 123/57 (79) 99 Room Air 09/27/17 06:23 92 Room Air 09/27/17 05:43 Room Air 09/27/17 04:00 Room Air 09/27/17 00:00 Room Air 09/26/17 20:07 97.2 09/26/17 20:00 96 Room Air 09/26/17 17:00 94 29 116/67 (83) 91 Room Air 09/26/17 16:30 98.9 09/26/17 16:00 90 27 141/133 (136) 92 Room Air 09/26/17 16:00 96 Room Air 09/26/17 15:00 59 25 134/60 (84) 94 Room Air 09/26/17 14:08 93 2.00 09/26/17 14:00 71 20 127/65 (85) 94 Room Air 09/26/17 13:01 57 09/26/17 13:00 53 20 127/78 (94) 94 Room Air 09/26/17 12:00 100.2 09/26/17 12:00 61 22 135/76 (95) 93 Room Air 09/26/17 12:00 93 Room Air 09/26/17 11:00 54 15 125/47 (73) 96 Room Air 09/26/17 10:00 66 18 122/64 (83) 91 Room Air 09/26/17 09:00 71 18 123/82 (96) 92 Room Air I & O 09/27/17 07:00 Intake Total 3930 ml Output Total 1900 ml Balance 2030 ml Capillary Refill : Greater Than 3 Seconds General Appearance: No Apparent Distress, WD/WN HEENT: Normal ENT Inspection Neck: Normal Inspection Respiratory: No Accessory Muscle Use, No Respiratory Distress Cardiovascular: Regular Rate, Rhythm Gastrointestinal: non tender, soft Results Lab Laboratory Tests 09/26/17 14:40: Lab Scanned Report Transfusion Reaction Form 09/26/17 14:51: B-Type Natriuretic Peptide 1302.1H Microbiology 09/25/17 Blood Culture - Preliminary, Resulted No growth 09/25/17 Urine Culture - Preliminary, Resulted Escherichia coli Assessment/Plan Assessment/Plan Assess & Plan/Chief Complaint Seizures. UTI with sepsis. Pneumonia. Pulmonary edema. Severe MR. Lab tests and x-rays pending Clinical Quality Measures Admission Status Admission Dx Severe sepsis. Hypoxia. Autistic and MR. Potassium over 10. Pneumonia. UTI. Seizure. DVT/VTE Risk/Contraindication: Risk Factor Score Per Nursin RFS Level Per Nursing on Admit: 4+=Very High EVE SOSA DO Sep 27, 2017 08:22
[2017-09-27 08:47] LABS: BASOPHILS # (AUTO) 0.1 10^3/uL (0.0-0.1); BASOPHILS % (AUTO) 1 % (0-10); EOSINOPHILS # (AUTO) 0.1 10^3/uL (0.0-0.3); EOSINOPHILS % (AUTO) 2 % (0-10); HEMATOCRIT 29 % (35-52); HEMOGLOBIN 8.9 G/DL (11.5-16.0); LYMPHOCYTES # (AUTO) 1.6 X 10^3 (1.0-4.0); LYMPHOCYTES % (AUTO) 20 % (12-44); MEAN CORPUSCULAR HEMOGLOBIN 22 PG (25-34); MEAN CORPUSCULAR HGB CONC 30 G/DL (32-36); MEAN CORPUSCULAR VOLUME 72 FL (80-99); MEAN PLATELET VOLUME 9.8 FL (7.4-10.4); MONOCYTES # (AUTO) 0.8 X 10^3 (0.0-1.0); MONOCYTES % (AUTO) 9 % (0-12); NEUTROPHILS # (AUTO) 5.5 X 10^3 (1.8-7.8); NEUTROPHILS % (AUTO) 69 % (42-75); PLATELET COUNT 431 10^3/uL (130-400); RED BLOOD COUNT 4.11 10^6/uL (4.35-5.85); RED CELL DISTRIBUTION WIDTH 21.5 % (10.0-14.5); WHITE BLOOD COUNT 8.1 10^3/uL (4.3-11.0)
[2017-09-27] MEDS ORDERED: ACETAMINOPHEN 500 MG TAB (TYLENOL) ONE (09:00)
[2017-09-27] MEDS: CEPHALEXIN 250 MG (KEFLEX) CAP PO SCH ×4 (09:08→20:14)
[2017-09-27] MEDS: LEVETIRACETAM 500 MG (KEPPRA) TAB PO SCH ×2 (09:08→20:14)
[2017-09-27] MEDS: PANTOPRAZOLE 40 MG/10 ML (PROTONIX) VIAL IV SCH (09:09)
[2017-09-27] MEDS: FUROSEMIDE 40 MG/4 ML INJ (LASIX) IVP SCH (09:09)
[2017-09-27] MEDS: ACETAMINOPHEN 500 MG TAB (TYLENOL) PO PRN ×2 (09:10→17:48)
[2017-09-27 09:15] LABS: ALBUMIN 3.9 GM/DL (3.2-4.5); BILIRUBIN,TOTAL 0.5 MG/DL (0.1-1.0); CALCIUM 9.3 MG/DL (8.5-10.1); CREATININE SERUM 1.09 MG/DL (0.60-1.30); POTASSIUM 3.2 MMOL/L (3.6-5.0); TOTAL PROTEIN 7.9 GM/DL (6.4-8.2)
--- NOTE | 2017-09-27 11:35 | Diagnostic Imaging Report ---
Procedure: Portable erect AP chest at 10:07. Indication: Hypoxia. Findings: The appearance of the chest has improved since the prior exam of 09/26/2017 as the abnormal densities about both cristiano have essentially resolved. The heart remains enlarged and I suspect that there is still some atelectasis/infiltrate and fluid in the right lung base. The left lung seems generally clear. The mediastinum is not widened. The osseous structures are intact. Impression: The appearance of the chest has improved as both perihilar regions are much better aerated. There is still cardiomegaly and right lower lobe pneumonia/atelectasis and fluid however. A followup study would be recommended for continued evaluation. Dictated by: Dictated on workstation # [id number]
[2017-09-27 12:00] VITALS: BP 125/61
[2017-09-27] MEDS ORDERED: KCL 20 MEQ TAB (K-DUR) PO NR (13:30)
[2017-09-27 14:00] VITALS: BP 125/61
[2017-09-27] MEDS ORDERED: FUROSEMIDE 40 MG/4 ML INJ (LASIX) IVP NR (16:00)
[2017-09-27] MEDS: NS IV 1000 ML 1,000 ML IV SCH (23:05)
[2017-09-28] VITALS: BP 130/64
[2017-09-28 05:49] LABS: BASOPHILS # (AUTO) 0.1 10^3/uL (0.0-0.1); BASOPHILS % (AUTO) 1 % (0-10); EOSINOPHILS # (AUTO) 0.3 10^3/uL (0.0-0.3); EOSINOPHILS % (AUTO) 3 % (0-10); HEMATOCRIT 29 % (35-52); LYMPHOCYTES % (AUTO) 24 % (12-44); MEAN CORPUSCULAR HEMOGLOBIN 22 PG (25-34); MEAN CORPUSCULAR HGB CONC 31 G/DL (32-36); MEAN CORPUSCULAR VOLUME 71 FL (80-99); MEAN PLATELET VOLUME 10.6 FL (7.4-10.4); MONOCYTES # (AUTO) 0.9 X 10^3 (0.0-1.0); MONOCYTES % (AUTO) 11 % (0-12); NEUTROPHILS % (AUTO) 61 % (42-75); PLATELET COUNT 410 10^3/uL (130-400); RED BLOOD COUNT 4.15 10^6/uL (4.35-5.85); RED CELL DISTRIBUTION WIDTH 22.9 % (10.0-14.5); WHITE BLOOD COUNT 8.2 10^3/uL (4.3-11.0)
[2017-09-28 06:34] LABS: ALANINE AMINOTRANSFERASE 35 U/L (0-55); ALBUMIN 3.7 GM/DL (3.2-4.5); ALKALINE PHOSPHATASE 62 U/L (40-136); BILIRUBIN,TOTAL 0.5 MG/DL (0.1-1.0); BUN/CREATININE RATIO 32; CALCIUM 9.1 MG/DL (8.5-10.1); CARBON DIOXIDE 23 MMOL/L (21-32); CHLORIDE 107 MMOL/L (98-107); CREATININE SERUM 0.85 MG/DL (0.60-1.30); GFR ESTIMATED > 60; GLUCOSE 98 MG/DL (70-105); MAGNESIUM 2.2 MG/DL (1.8-2.4); PHOSPHORUS 3.9 MG/DL (2.3-4.7); POTASSIUM 3.5 MMOL/L (3.6-5.0); SODIUM 142 MMOL/L (135-145); TOTAL PROTEIN 7.6 GM/DL (6.4-8.2)
[2017-09-28] MEDS: CATHETER FLUSH 10 ML SYR IV SCH ×2 (06:47→13:01)
--- NOTE | 2017-09-28 07:51 | Progress Note (SOAP) ---
Subjective Time Seen by Provider: 07:45 Subjective/Events-last exam Severe MR. Hypoxia. Seizure. Sepsis. Patient doing much better today. Patient walking around. Lung sounds better. Plan to discharge today. Waiting on chest x-ray report. Nurse to call at 11 a.m. To send home on Breath, fair sulfate, Keflex, and maybe Lasix Focused Exam Evaluation Lactate Level Laboratory Tests 09/25/17 19:35: Lactic Acid Level 10.66*H 09/25/17 21:45: Lactic Acid Level 1.75 Objective Exam Vital Signs Date Time Temp Pulse Resp B/P (MAP) Pulse Ox O2 Delivery O2 Flow Rate FiO2 09/28/17 04:00 98.2 78 18 98 Room Air 09/28/17 00:00 97.5 82 20 130/64 (86) 97 Room Air 09/27/17 14:00 98.5 80 20 125/61 (82) 96 Room Air 09/27/17 12:00 98.5 80 20 125/61 (82) 96 Room Air 09/27/17 08:00 Room Air 09/27/17 08:00 97.8 77 18 121/62 (81) 98 Room Air I & O 09/28/17 07:00 Intake Total 2110 ml Output Total 1700 ml Balance 410 ml Capillary Refill : Greater Than 3 Seconds General Appearance: No Apparent Distress, Thin HEENT: Normal ENT Inspection Neck: Normal Inspection Respiratory: Lungs Clear, No Accessory Muscle Use, No Respiratory Distress Cardiovascular: Regular Rate, Rhythm, No Murmur Gastrointestinal: non tender, soft Results Lab Laboratory Tests 09/27/17 08:38 09/28/17 05:38 Laboratory Tests 09/27/17 08:38: White Blood Count 8.1, Red Blood Count 4.11L, Hemoglobin 8.9L, Hematocrit 29L, Mean Corpuscular Volume 72L, Mean Corpuscular Hemoglobin 22L, Mean Corpuscular Hemoglobin Concent 30L, Red Cell Distribution Width 21.5H, Platelet Count 431H, Mean Platelet Volume 9.8, Neutrophils (%) (Auto) 69, Lymphocytes (%) (Auto) 20, Monocytes (%) (Auto) 9, Eosinophils (%) (Auto) 2, Basophils (%) (Auto) 1, Neutrophils # (Auto) 5.5, Lymphocytes # (Auto) 1.6, Monocytes # (Auto) 0.8, Eosinophils # (Auto) 0.1, Basophils # (Auto) 0.1, Sodium Level 147H, Potassium Level 3.2L, Chloride Level 111H, Carbon Dioxide Level 29, Anion Gap 7, Blood Urea Nitrogen 18, Creatinine 1.09, Estimat Glomerular Filtration Rate 51, BUN/ Creatinine Ratio 17, Glucose Level 66L, Calcium Level 9.3, Phosphorus Level 3.0 , Magnesium Level 2.0, Total Bilirubin 0.5, Aspartate Amino Transf (AST/SGOT) 48H, Alanine Aminotransferase (ALT/SGPT) 24, Alkaline Phosphatase 63, B-Type Natriuretic Peptide 1409.9H, Total Protein 7.9, Albumin 3.9 09/28/17 05:38: White Blood Count 8.2, Red Blood Count 4.15L, Hemoglobin 9.0L, Hematocrit 29L, Mean Corpuscular Volume 71L, Mean Corpuscular Hemoglobin 22L, Mean Corpuscular Hemoglobin Concent 31L, Red Cell Distribution Width 22.9H, Platelet Count 410H, Mean Platelet Volume 10.6H, Neutrophils (%) (Auto) 61, Lymphocytes (%) (Auto) 24 , Monocytes (%) (Auto) 11, Eosinophils (%) (Auto) 3, Basophils (%) (Auto) 1, Neutrophils # (Auto) 5.0, Lymphocytes # (Auto) 2.0, Monocytes # (Auto) 0.9, Eosinophils # (Auto) 0.3, Basophils # (Auto) 0.1, Sodium Level 142, Potassium Level 3.5L, Chloride Level 107, Carbon Dioxide Level 23, Anion Gap 12, Blood Urea Nitrogen 27H, Creatinine 0.85, Estimat Glomerular Filtration Rate > 60, BUN /Creatinine Ratio 32, Glucose Level 98, Calcium Level 9.1, Phosphorus Level 3.9 , Magnesium Level 2.2, Total Bilirubin 0.5, Aspartate Amino Transf (AST/SGOT) 74H, Alanine Aminotransferase (ALT/SGPT) 35, Alkaline Phosphatase 62, Total Protein 7.6, Albumin 3.7 Microbiology 09/25/17 Blood Culture - Preliminary, Resulted No growth 09/26/17 MRSA Screen - Final, Complete MRSA not isolated 09/25/17 Urine Culture - Final, Complete Escherichia coli Assessment/Plan Assessment/Plan Assess & Plan/Chief Complaint Seizures. UTI with sepsis. Pneumonia. Pulmonary edema. Severe MR. Lab tests and x-rays pending. . 09/28/17. Seizures. UTI with sepsis. Pneumonia. Pulmonary edema. Severe MR. Patient doing much better today. Patient alert. Plan to discharge today Clinical Quality Measures Admission Status Admission Dx Severe sepsis. Hypoxia. Autistic and MR. Potassium over 10. Pneumonia. UTI. Seizure. DVT/VTE Risk/Contraindication: Risk Factor Score Per Nursin RFS Level Per Nursing on Admit: 4+=Very High EVE SOSA DO Sep 28, 2017 07:51
[2017-09-28 08:00] VITALS: BP 129/65
[2017-09-28] MEDS ORDERED: TROUGH ORDER-PHARMACY XX NR (08:00)
[2017-09-28] MEDS: CEPHALEXIN 250 MG (KEFLEX) CAP PO SCH ×5 (08:59→20:25)
[2017-09-28] MEDS: PANTOPRAZOLE 40 MG (PROTONIX) TAB PO SCH (08:59)
[2017-09-28] MEDS: FUROSEMIDE 40 MG (LASIX) TAB PO SCH (08:59)
[2017-09-28] MEDS: KCL 10 MEQ TAB (MICRO K) PO SCH (08:59)
[2017-09-28] MEDS: LEVETIRACETAM 500 MG (KEPPRA) TAB PO SCH ×2 (09:00→20:25)
[2017-09-28] MEDS ORDERED: FUROSEMIDE 40 MG/4 ML INJ (LASIX) IVP SCH (09:00)
[2017-09-28] MEDS: ACETAMINOPHEN 500 MG TAB (TYLENOL) PO PRN ×2 (09:00→19:30)
--- NOTE | 2017-09-28 11:57 | Diagnostic Imaging Report ---
EXAMINATION: Portable erect AP chest at 10:13 AM. INDICATION: Pneumonia. FINDINGS: The appearance of the chest has worsened since the prior exam of 09/27/2017 as there is greater involvement of the right midlung and right lung base by pneumonia/atelectasis and pleural fluid. The central pulmonary vascularity also seems somewhat more prominent than on the prior exam and there may be greater pulmonary congestion as well. I suspect that there is also some new atelectasis/infiltrate and fluid in the left lung base as well. The heart is enlarged but stable. The mediastinum is not widened. The osseous structures are intact. IMPRESSION: The appearance of the chest has worsened since the prior study as there is greater involvement of both lung bases by atelectasis/infiltrate and fluid. There also seems to be somewhat greater pulmonary congestion than on the prior exam. A followup study would be recommended for continued evaluation. Dictated by: Dictated on workstation # [id number]
[2017-09-28 12:00] VITALS: BP 143/83
[2017-09-28] MEDS ORDERED: LOPERAMIDE 2 MG (IMODIUM) CAP PO PRN (12:30)
--- NOTE | 2017-09-28 15:00 | Physical Therapy Progress Note ---
Therapy Progress Note Acknowledged speech therapy order. This is a chronic condition. Dr. Pollock contacted by phone to inform him no speech services available this date. He reported the swallow assessment could wait until 09/29/17. Wes Clark, PT . WES CLARK PT Sep 28, 2017 15:00
[2017-09-28 15:50] VITALS: BP 121/63
[2017-09-28] MEDS: NS IV 1000 ML 1,000 ML IV SCH (16:06)
[2017-09-28] MEDS: FERROUS SULF 325 MG (IRON) TAB PO SCH (17:11)
[2017-09-28] MEDS ORDERED: LORazepam 1 MG (ATIVAN) TAB PO PRN (19:45)
[2017-09-29 00:11] VITALS: BP 142/61
[2017-09-29 01:40] VITALS: BP 142/61
[2017-09-29 05:55] LABS: BASOPHILS # (AUTO) 0.1 10^3/uL (0.0-0.1); BASOPHILS % (AUTO) 1 % (0-10); EOSINOPHILS # (AUTO) 0.4 10^3/uL (0.0-0.3); EOSINOPHILS % (AUTO) 6 % (0-10); HEMATOCRIT 29 % (35-52); HEMOGLOBIN 8.6 G/DL (11.5-16.0); LYMPHOCYTES # (AUTO) 2.1 X 10^3 (1.0-4.0); LYMPHOCYTES % (AUTO) 29 % (12-44); MEAN CORPUSCULAR HEMOGLOBIN 21 PG (25-34); MEAN CORPUSCULAR HGB CONC 30 G/DL (32-36); MEAN CORPUSCULAR VOLUME 72 FL (80-99); MEAN PLATELET VOLUME 10.1 FL (7.4-10.4); MONOCYTES # (AUTO) 0.7 X 10^3 (0.0-1.0); MONOCYTES % (AUTO) 10 % (0-12); NEUTROPHILS # (AUTO) 3.8 X 10^3 (1.8-7.8); NEUTROPHILS % (AUTO) 54 % (42-75); PLATELET COUNT 422 10^3/uL (130-400); RED BLOOD COUNT 4.04 10^6/uL (4.35-5.85); RED CELL DISTRIBUTION WIDTH 24.2 % (10.0-14.5)
[2017-09-29] MEDS: KCL 10 MEQ TAB (MICRO K) PO SCH (06:00)
[2017-09-29] MEDS: PANTOPRAZOLE 40 MG (PROTONIX) TAB PO SCH (06:00)
[2017-09-29] MEDS: FERROUS SULF 325 MG (IRON) TAB PO SCH (06:00)
[2017-09-29 06:22] LABS: ALANINE AMINOTRANSFERASE 38 U/L (0-55); ALBUMIN 3.5 GM/DL (3.2-4.5); ALKALINE PHOSPHATASE 63 U/L (40-136); BILIRUBIN,TOTAL 0.2 MG/DL (0.1-1.0); BUN/CREATININE RATIO 27; CALCIUM 8.8 MG/DL (8.5-10.1); CARBON DIOXIDE 28 MMOL/L (21-32); CHLORIDE 108 MMOL/L (98-107); CREATININE SERUM 0.74 MG/DL (0.60-1.30); GFR ESTIMATED > 60; GLUCOSE 89 MG/DL (70-105); MAGNESIUM 2.1 MG/DL (1.8-2.4); PHOSPHORUS 4.4 MG/DL (2.3-4.7); POTASSIUM 4.4 MMOL/L (3.6-5.0); SODIUM 141 MMOL/L (135-145); TOTAL PROTEIN 7.1 GM/DL (6.4-8.2)
[2017-09-29] MEDS ORDERED: FUROSEMIDE 40 MG (LASIX) TAB PO ONE (07:00)
--- NOTE | 2017-09-29 07:31 | Progress Note (SOAP) ---
Subjective Time Seen by Provider: 07:30 Subjective/Events-last exam According to compensation and hris analyst and nurse patient had a good night. Patient not having any problems breathing. Patient's chest x-ray looks worse yesterday. Have a chest x-ray done today. Severe MRToby Sepsis. Pneumonia Objective Exam Vital Signs Date Time Temp Pulse Resp B/P (MAP) Pulse Ox O2 Delivery O2 Flow Rate FiO2 09/29/17 01:40 98.4 65 19 142/61 (88) 94 Room Air 09/29/17 00:11 98.4 65 19 142/61 (88) 94 Room Air 09/28/17 21:00 Room Air 09/28/17 15:50 97.6 82 20 121/63 (82) 93 Room Air 09/28/17 12:00 98.7 83 18 143/83 (103) 97 Room Air 09/28/17 09:00 99 Room Air 2.00 09/28/17 08:00 97.8 95 18 129/65 (86) 99 Room Air I & O 09/29/17 07:00 Intake Total 3100 ml Output Total 1600 ml Balance 1500 ml Capillary Refill : Greater Than 3 Seconds General Appearance: No Apparent Distress, WD/WN HEENT: Normal ENT Inspection Neck: Normal Inspection Respiratory: Lungs Clear, No Accessory Muscle Use, No Respiratory Distress Cardiovascular: Regular Rate, Rhythm, No Murmur Gastrointestinal: non tender, soft Results Lab Laboratory Tests 09/29/17 05:19 Laboratory Tests 09/29/17 05:19: White Blood Count 7.0, Red Blood Count 4.04L, Hemoglobin 8.6L, Hematocrit 29L, Mean Corpuscular Volume 72L, Mean Corpuscular Hemoglobin 21L, Mean Corpuscular Hemoglobin Concent 30L, Red Cell Distribution Width 24.2H, Platelet Count 422H, Mean Platelet Volume 10.1, Neutrophils (%) (Auto) 54, Lymphocytes (%) (Auto) 29 , Monocytes (%) (Auto) 10, Eosinophils (%) (Auto) 6, Basophils (%) (Auto) 1, Neutrophils # (Auto) 3.8, Lymphocytes # (Auto) 2.1, Monocytes # (Auto) 0.7, Eosinophils # (Auto) 0.4H, Basophils # (Auto) 0.1, Sodium Level 141, Potassium Level 4.4, Chloride Level 108H, Carbon Dioxide Level 28, Anion Gap 5, Blood Urea Nitrogen 20H, Creatinine 0.74, Estimat Glomerular Filtration Rate > 60, BUN /Creatinine Ratio 27, Glucose Level 89, Calcium Level 8.8, Phosphorus Level 4.4 , Magnesium Level 2.1, Total Bilirubin 0.2, Aspartate Amino Transf (AST/SGOT) 59H, Alanine Aminotransferase (ALT/SGPT) 38, Alkaline Phosphatase 63, Total Protein 7.1, Albumin 3.5 Microbiology 09/25/17 Blood Culture - Preliminary, Resulted No growth 09/28/17 C. difficile GDH Antigen & Toxins - Final, Complete 09/26/17 MRSA Screen - Final, Complete MRSA not isolated 09/25/17 Urine Culture - Final, Complete Escherichia coli Assessment/Plan Assessment/Plan Assess & Plan/Chief Complaint Seizures. UTI with sepsis. Pneumonia. Pulmonary edema. Severe MR. Lab tests and x-rays pending. . 09/28/17. Seizures. UTI with sepsis. Pneumonia. Pulmonary edema. Severe MR. Patient doing much better today. Patient alert. Plan to discharge today. . . Seizures. UTI. Pneumonia. Pulmonary edema. Severe MR. Patient appears to be doing good. Chest x-ray yesterday looked worse. Waiting on today's x-ray Clinical Quality Measures Admission Status Admission Dx Severe sepsis. Hypoxia. Autistic and MR. Potassium over 10. Pneumonia. UTI. Seizure. DVT/VTE Risk/Contraindication: Risk Factor Score Per Nursin RFS Level Per Nursing on Admit: 4+=Very High EVE SOSA DO Sep 29, 2017 07:31
[2017-09-29 08:42] VITALS: BP 129/61
[2017-09-29] MEDS: CEPHALEXIN 250 MG (KEFLEX) CAP PO SCH (09:51)
[2017-09-29] MEDS: LEVETIRACETAM 500 MG (KEPPRA) TAB PO SCH (09:52)
[2017-09-29] MEDS: FUROSEMIDE 40 MG (LASIX) TAB PO SCH (09:52)
--- NOTE | 2017-09-29 09:54 | Diagnostic Imaging Report ---
EXAMINATION: Portable erect AP chest at 924h. INDICATION: Respiratory distress, hypoxia The cardiomegaly, pulmonary congestion and bibasal pneumonia/atelectasis and bilateral pleural effusions seen previously are again evident. The right midlung and right lung base do seem better aerated however. The lung apices remain clear. The mediastinum is not widened. The osseous structures are intact. IMPRESSION: The appearance of the chest has improved somewhat as the right midlung and right lung base do seem better aerated. A followup study would be recommended for continued evaluation. Dictated by: Dictated on workstation # [id number]
[2017-09-29] MEDS ORDERED: AZITHROMYCIN 250 MG TAB (ZITHROMAX) PO NR (10:00)
--- NOTE | 2017-09-29 11:16 | ST Dysphagia Evaluation ---
Speech Evaluation-General Medical Diagnosis UTI, Pneumonia, Severe Sepsis Onset Date: Sep 26, 2017 Therapy Diagnosis Therapy Diagnosis: Mild Oropharyngeal Dysphagia Precautions Precautions: Aspiration Precautions/Isolations: Seizure, Fall Prevention, Standard Precautions Referral Referring Physician: Dr. Will Reason for Referral: Evaluation/Treatment Clinical Bedside Swallowing Evaluation Medical History MR, Seizures Current History The patient was recently admitted to [facility] with a diagnosis of pneumonia and severe sepsis. Speech PLF/Current-Dysphagia Prior Level of Function The patient is nonverbal secondary to prior diagnosis of MR. The patient's caregiver was present at bedside who provided the patient's prior level of function to the clinician. Per caregiver, the patient consumes a mechanical soft diet with thin liquids at home. The patient demonstrates impulsivity throughout meals, as she will "dump" the entire contents of a cup into an open mouth. Additionally, the patient consumes medication whole with water. The patient's caregiver denied the presence of signs/symptoms of aspiration with any consistency she currently consumes. Subjective The patient was seated upright in recliner upon entrance. The patient made eye- contact with the clinician and was participatory throughout the evaluation, however, did not follow verbal directions. CXR:09/29/2017: 1. The appearance of the chest has improved somewhat as the right midlung and right lung base do seem better aerated. A followup study would be recommended for continued evaluation. Cognitive Status Patient Orientation: MR, Non-Verbal/Aphasic Oral Motor Skills Dentition: Natural (Poor condition, sparse) Current Food Consistancy: Pureed, Thin Liquids Ability to Follow Directions: Fair Oral Expression Ability: Severe Impairment Face Facial Symmetry: Symmetrical (Grossly symmetrical; No overt droop present.) Oral-Facial Assessment The patient was unable to follow prompts for completion of the oral motor examination. The patient did open her oral cavity when presented with a toothbrush. The patient was able to make lateral movements to each buccal cavity and manipulate the toothbrush with adequate strength. Dysphagia Evaluation Consistencies Presented: Regular (Saltine Cracker), Thin Liquid (Teaspoon, Cup Sip), Pureed (Pudding) Oral Phase: Anterior Spillage, Reduced Oral Transit The patient demonstrated an overall uncoordinated oral phase. Anterior spillage was noted of thin liquids bilaterally with teaspoon sips and cup sips. A tongue pumping behavior, as well as, increased mastication time was noted with solid consistencies. The patient was able to move the bolus posterior in the oral cavity and trigger a pharyngeal swallow. Pharyngeal Phase: Swallows Too Rapidly The patient completed a "dump like" movement of the thin liquid material when provided a cup. The patient displayed a chug like behavior, consuming the complete cup of 6 ounces prior to ceasing. - Thin Liquid (Teaspoon, Two Ounces in Cup): No signs/symptoms of aspiration were demonstrated with multiple teaspoon sips or when two ounces of liquid were provided in a cup. - Thin Liquid (Via Cup): The patient demonstrated an immediate cough when provided a cup of water. The patient completed the "dump like" motion noted above, consuming all six ounces prior to providing the cup to the clinician. - Puree: No signs/symptoms of aspiration were demonstrated with puree consistencies. - Solid: No signs/symptoms of aspiration were demonstrated with solid consistencies, however, prolonged mastication noted. Dietary Recommendations: Mechanical Soft Liquid Recommendations: Thin (Strict restrictions listed below.) Swallowing Precautions: Decreased Rate of Oral Intake (The patient is only allowed one to two ounces in cup at a time. ), Liquids from Cup, No Straw, Oral Supervision Staff, Oral Supervision Caregiver, Small Bites and Sips, Sitting 90 Degrees 30 Post Intake Dysphagia Evaluation Summary The patient demonstrated mild oropharyngeal dysphagia characterized by reduced lingual coordination and impulsivity. Due to the patient's impulsivity, airway protection is delayed resulting is signs/symptoms of aspiration with large, consecutive "gulps" of thin liquid. 1:1 supervision is warranted throughout meals and all PO intake. Speech-Plan Treatment Plan Speech Therapy Treatment Plan: Discontinue ST Evaluation, only. Frequency: 1 time per week Estimated Hrs Per Day: Other Rehab Potential: Guarded Safety Risks/Education Teaching Recipient: Patient, Primary Caregiver Teaching Methods: Discussion Response to Teaching: Verbalize Understanding Education Topics Provided: Results, Recommendations, Plan of Care Time Speech Therapy Time In: 08:25 Speech Therapy Time Out: 08:45 Total Billed Time: 20 Billed Treatment Time Dominique SHAUN LOPEZAARON [place] Sep 29, 2017 11:16
[2017-09-29] MEDS ORDERED: FURO40TA4 PO (12:25)
[2017-09-29] MEDS ORDERED: LEVE500T6 PO (12:25)
[2017-09-29] MEDS ORDERED: CEPH250C PO (12:25)
[2017-09-29] MEDS ORDERED: AZIT250T12 PO (12:25)
[2017-09-29] MEDS ORDERED: CEPHALEXIN 250 MG (KEFLEX) CAP PO SCH (13:00)
[2017-09-29 13:05] VITALS: BP 129/61
[2017-09-30] MEDS ORDERED: AZITHROMYCIN 250 MG TAB (ZITHROMAX) PO SCH (09:00)
--- NOTE | 2017-10-03 07:14 | Discharge Summary ---
Diagnosis/Chief Complaint Date of Admission Sep 25, 2017 at 22:10 Date of Discharge Sep 29, 2017 at 13:05 Discharge Date: Sep 29, 2017 Discharge Time: 07:05 Discharge Diagnosis Severe sepsis. Seizures. Mental retardation. autistic Acute UTI. Severe anemia. Pneumonia. Congestive heart failure. Metabolic lactic acidosis 10.66. Hypoxia. Congestive heart failure. Reason Hospital Visit Patient has severe MR and not distended. Patient had 2 seizures.. Patient has a twin sister that has seizures but she doesn't. Patient sent out to the emergency room. Pulse ox in the 50 and 60s. Hemoglobin 5. Lactic acid over 10. UA shows UTI. Chest x-ray shows pneumonia. Patient admitted to ICU for severe sepsis Discharge Summary Consultations Pulmonology Discharge Physical Examination Allergies: Coded Allergies: No Known Drug Allergies (Unverified , 12/27/16) Vitals & I&Os Vital Signs Date Time Temp Pulse Resp B/P (MAP) Pulse Ox O2 Delivery O2 Flow Rate FiO2 09/29/17 13:05 79 22 129/61 95 Room Air 09/29/17 08:42 96.4 09/28/17 09:00 2.00 Hospital Course Patient hospital did better. Patient discharged back to intermediate Patient to be seen in office that Monday Labs (last 24 hrs) Laboratory Tests 09/25/17 19:28: White Blood Count 9.3, Red Blood Count 3.07L, Hemoglobin 5.8*L, Hematocrit 21L, Mean Corpuscular Volume 67L, Mean Corpuscular Hemoglobin 19L, Mean Corpuscular Hemoglobin Concent 28L, Red Cell Distribution Width 18.7H, Platelet Count 563H, Mean Platelet Volume 9.6, Neutrophils (%) (Auto) 76H, Lymphocytes (%) (Auto) 14 , Monocytes (%) (Auto) 9, Eosinophils (%) (Auto) 1, Basophils (%) (Auto) 0, Neutrophils # (Auto) 7.1, Lymphocytes # (Auto) 1.3, Monocytes # (Auto) 0.8, Eosinophils # (Auto) 0.1, Basophils # (Auto) 0.0, Sodium Level 133L, Potassium Level 3.9, Chloride Level 103, Carbon Dioxide Level 17L, Anion Gap 13, Blood Urea Nitrogen 13, Creatinine 1.04, Estimat Glomerular Filtration Rate 54, BUN/ Creatinine Ratio 13, Glucose Level 174H, Calcium Level 8.5, Total Bilirubin 0.1 , Aspartate Amino Transf (AST/SGOT) 17, Alanine Aminotransferase (ALT/SGPT) 11, Alkaline Phosphatase 66, Troponin I < 0.30, Total Protein 7.3, Albumin 3.7 09/25/17 19:29: Blood Gas Puncture Site LEFT RADIAL, Blood Gas Patient Temperature 98.0, Arterial Blood pH 7.28*L, Arterial Blood Partial Pressure CO2 39, Arterial Blood Partial Pressure O2 154H, Arterial Blood HCO3 18L, Arterial Blood Total CO2 18.9L, Arterial Blood Oxygen Saturation 100, Arterial Blood Base Excess - 7.9L, Pedro Test POSITIVE, Blood Gas Ventilator Setting NO, Blood Gas Inspired Oxygen 15 L 09/25/17 19:35: Lactic Acid Level 10.66*H 09/25/17 19:41: Urine Color YELLOW, Urine Clarity CLEAR, Urine pH 5, Urine Specific B[place] 1.030H, Urine Protein 1+H, Urine Glucose (UA) NEGATIVE, Urine Ketones 1+H, Urine Nitrite NEGATIVE, Urine Bilirubin NEGATIVE, Urine Urobilinogen NORMAL, Urine Leukocyte Esterase 3+H, Urine RBC (Auto) NEGATIVE, Urine RBC NONE, Urine WBC 10-25H, Urine Crystals NONE, Urine Bacteria MODERATEH, Urine Casts NONE, Urine Mucus SMALLH, Urine Culture Indicated YES 09/25/17 21:45: Lactic Acid Level 1.75 09/26/17 03:20: White Blood Count 11.7H, Red Blood Count 3.84L, Hemoglobin 8.4#L, Hematocrit 27L , Mean Corpuscular Volume 71L, Mean Corpuscular Hemoglobin 22L, Mean Corpuscular Hemoglobin Concent 31L, Red Cell Distribution Width 21.2H, Platelet Count 431H, Mean Platelet Volume 10.0, Neutrophils (%) (Auto) 85H, Lymphocytes ( %) (Auto) 9L, Monocytes (%) (Auto) 6, Eosinophils (%) (Auto) 0, Basophils (%) ( Auto) 0, Neutrophils # (Auto) 10.0H, Lymphocytes # (Auto) 1.0, Monocytes # (Auto ) 0.7, Eosinophils # (Auto) 0.0, Basophils # (Auto) 0.0, Sodium Level 136, Potassium Level 4.1, Chloride Level 109H, Carbon Dioxide Level 19L, Anion Gap 8 , Blood Urea Nitrogen 12, Creatinine 0.77, Estimat Glomerular Filtration Rate > 60, BUN/Creatinine Ratio 16, Glucose Level 118H, Calcium Level 8.3L, Phosphorus Level 3.1, Magnesium Level 2.2, Total Bilirubin 1.0, Aspartate Amino Transf (AST /SGOT) 24, Alanine Aminotransferase (ALT/SGPT) 13, Alkaline Phosphatase 65, Total Protein 6.8, Albumin 3.4 09/26/17 14:40: Lab Scanned Report Transfusion Reaction Form 09/26/17 14:51: B-Type Natriuretic Peptide 1302.1H 09/27/17 08:38: White Blood Count 8.1, Red Blood Count 4.11L, Hemoglobin 8.9L, Hematocrit 29L, Mean Corpuscular Volume 72L, Mean Corpuscular Hemoglobin 22L, Mean Corpuscular Hemoglobin Concent 30L, Red Cell Distribution Width 21.5H, Platelet Count 431H, Mean Platelet Volume 9.8, Neutrophils (%) (Auto) 69, Lymphocytes (%) (Auto) 20, Monocytes (%) (Auto) 9, Eosinophils (%) (Auto) 2, Basophils (%) (Auto) 1, Neutrophils # (Auto) 5.5, Lymphocytes # (Auto) 1.6, Monocytes # (Auto) 0.8, Eosinophils # (Auto) 0.1, Basophils # (Auto) 0.1, Sodium Level 147H, Potassium Level 3.2L, Chloride Level 111H, Carbon Dioxide Level 29, Anion Gap 7, Blood Urea Nitrogen 18, Creatinine 1.09, Estimat Glomerular Filtration Rate 51, BUN/ Creatinine Ratio 17, Glucose Level 66L, Calcium Level 9.3, Phosphorus Level 3.0 , Magnesium Level 2.0, Total Bilirubin 0.5, Aspartate Amino Transf (AST/SGOT) 48H, Alanine Aminotransferase (ALT/SGPT) 24, Alkaline Phosphatase 63, B-Type Natriuretic Peptide 1409.9H, Total Protein 7.9, Albumin 3.9 09/28/17 05:38: White Blood Count 8.2, Red Blood Count 4.15L, Hemoglobin 9.0L, Hematocrit 29L, Mean Corpuscular Volume 71L, Mean Corpuscular Hemoglobin 22L, Mean Corpuscular Hemoglobin Concent 31L, Red Cell Distribution Width 22.9H, Platelet Count 410H, Mean Platelet Volume 10.6H, Neutrophils (%) (Auto) 61, Lymphocytes (%) (Auto) 24 , Monocytes (%) (Auto) 11, Eosinophils (%) (Auto) 3, Basophils (%) (Auto) 1, Neutrophils # (Auto) 5.0, Lymphocytes # (Auto) 2.0, Monocytes # (Auto) 0.9, Eosinophils # (Auto) 0.3, Basophils # (Auto) 0.1, Sodium Level 142, Potassium Level 3.5L, Chloride Level 107, Carbon Dioxide Level 23, Anion Gap 12, Blood Urea Nitrogen 27H, Creatinine 0.85, Estimat Glomerular Filtration Rate > 60, BUN /Creatinine Ratio 32, Glucose Level 98, Calcium Level 9.1, Phosphorus Level 3.9 , Magnesium Level 2.2, Total Bilirubin 0.5, Aspartate Amino Transf (AST/SGOT) 74H, Alanine Aminotransferase (ALT/SGPT) 35, Alkaline Phosphatase 62, B-Type Natriuretic Peptide 732.3H, Total Protein 7.6, Albumin 3.7 09/29/17 05:19: White Blood Count 7.0, Red Blood Count 4.04L, Hemoglobin 8.6L, Hematocrit 29L, Mean Corpuscular Volume 72L, Mean Corpuscular Hemoglobin 21L, Mean Corpuscular Hemoglobin Concent 30L, Red Cell Distribution Width 24.2H, Platelet Count 422H, Mean Platelet Volume 10.1, Neutrophils (%) (Auto) 54, Lymphocytes (%) (Auto) 29 , Monocytes (%) (Auto) 10, Eosinophils (%) (Auto) 6, Basophils (%) (Auto) 1, Neutrophils # (Auto) 3.8, Lymphocytes # (Auto) 2.1, Monocytes # (Auto) 0.7, Eosinophils # (Auto) 0.4H, Basophils # (Auto) 0.1, Sodium Level 141, Potassium Level 4.4, Chloride Level 108H, Carbon Dioxide Level 28, Anion Gap 5, Blood Urea Nitrogen 20H, Creatinine 0.74, Estimat Glomerular Filtration Rate > 60, BUN /Creatinine Ratio 27, Glucose Level 89, Calcium Level 8.8, Phosphorus Level 4.4 , Magnesium Level 2.1, Total Bilirubin 0.2, Aspartate Amino Transf (AST/SGOT) 59H, Alanine Aminotransferase (ALT/SGPT) 38, Alkaline Phosphatase 63, Total Protein 7.1, Albumin 3.5 Microbiology 09/25/17 Blood Culture - Final, Complete No growth 09/28/17 C. difficile GDH Antigen & Toxins - Final, Complete 09/26/17 MRSA Screen - Final, Complete MRSA not isolated 09/25/17 Urine Culture - Final, Complete Escherichia coli Laboratory Tests 09/25/17 19:28 09/26/17 03:20 09/27/17 08:38 09/28/17 05:38 09/29/17 05:19 Pending Labs Microbiology Date/Time Source Procedure Growth Status 09/25/17 20:10 Peripheral Rt Hand Blood Culture - Final No growth Complete 09/25/17 19:35 Peripheral Lt Ac Blood Culture - Final No growth Complete 09/28/17 11:32 Stool C. difficile GDH Antigen & Toxins - Final Complete 09/26/17 10:10 Nasal MRSA Screen - Final MRSA not isolated Complete 09/25/17 19:41 Urine Clean Catch Urine Culture - Final Escherichia coli Complete Laboratory Tests 09/25/17 19:28: White Blood Count 9.3, Red Blood Count 3.07, Hemoglobin 5.8, Hematocrit 21, Mean Corpuscular Volume 67, Mean Corpuscular Hemoglobin 19, Mean Corpuscular Hemoglobin Concent 28, Red Cell Distribution Width 18.7, Platelet Count 563, Mean Platelet Volume 9.6, Neutrophils (%) (Auto) 76, Lymphocytes (%) (Auto) 14, Monocytes (%) (Auto) 9, Eosinophils (%) (Auto) 1, Basophils (%) (Auto) 0, Neutrophils # (Auto) 7.1, Lymphocytes # (Auto) 1.3, Monocytes # (Auto) 0.8, Eosinophils # (Auto) 0.1, Basophils # (Auto) 0.0, Sodium Level 133, Potassium Level 3.9, Chloride Level 103, Carbon Dioxide Level 17, Anion Gap 13, Blood Urea Nitrogen 13, Creatinine 1.04, Estimat Glomerular Filtration Rate 54, BUN/ Creatinine Ratio 13, Glucose Level 174, Calcium Level 8.5, Total Bilirubin 0.1, Aspartate Amino Transf (AST/SGOT) 17, Alanine Aminotransferase (ALT/SGPT) 11, Alkaline Phosphatase 66, Troponin I < 0.30, Total Protein 7.3, Albumin 3.7 09/25/17 19:29: Blood Gas Puncture Site LEFT RADIAL, Blood Gas Patient Temperature 98.0, Arterial Blood pH 7.28, Arterial Blood Partial Pressure CO2 39, Arterial Blood Partial Pressure O2 154, Arterial Blood HCO3 18, Arterial Blood Total CO2 18.9, Arterial Blood Oxygen Saturation 100, Arterial Blood Base Excess -7.9, Pedro Test POSITIVE, Blood Gas Ventilator Setting NO, Blood Gas Inspired Oxygen 15 L 09/25/17 19:35: Lactic Acid Level 10.66 09/25/17 19:41: Urine Color YELLOW, Urine Clarity CLEAR, Urine pH 5, Urine Specific [place] 1.030, Urine Protein 1+, Urine Glucose (UA) NEGATIVE, Urine Ketones 1+, Urine Nitrite NEGATIVE, Urine Bilirubin NEGATIVE, Urine Urobilinogen NORMAL, Urine Leukocyte Esterase 3+, Urine RBC (Auto) NEGATIVE, Urine RBC NONE, Urine WBC 10- 25, Urine Crystals NONE, Urine Bacteria MODERATE, Urine Casts NONE, Urine Mucus SMALL, Urine Culture Indicated YES 09/25/17 21:45: Lactic Acid Level 1.75 09/26/17 03:20: White Blood Count 11.7, Red Blood Count 3.84, Hemoglobin 8.4, Hematocrit 27, Mean Corpuscular Volume 71, Mean Corpuscular Hemoglobin 22, Mean Corpuscular Hemoglobin Concent 31, Red Cell Distribution Width 21.2, Platelet Count 431, Mean Platelet Volume 10.0, Neutrophils (%) (Auto) 85, Lymphocytes (%) (Auto) 9, Monocytes (%) (Auto) 6, Eosinophils (%) (Auto) 0, Basophils (%) (Auto) 0, Neutrophils # (Auto) 10.0, Lymphocytes # (Auto) 1.0, Monocytes # (Auto) 0.7, Eosinophils # (Auto) 0.0, Basophils # (Auto) 0.0, Sodium Level 136, Potassium Level 4.1, Chloride Level 109, Carbon Dioxide Level 19, Anion Gap 8, Blood Urea Nitrogen 12, Creatinine 0.77, Estimat Glomerular Filtration Rate > 60, BUN/ Creatinine Ratio 16, Glucose Level 118, Calcium Level 8.3, Phosphorus Level 3.1 , Magnesium Level 2.2, Total Bilirubin 1.0, Aspartate Amino Transf (AST/SGOT) 24 , Alanine Aminotransferase (ALT/SGPT) 13, Alkaline Phosphatase 65, Total Protein 6.8, Albumin 3.4 09/26/17 14:40: Lab Scanned Report Transfusion Reaction Form 09/26/17 14:51: B-Type Natriuretic Peptide 1302.1 09/27/17 08:38: White Blood Count 8.1, Red Blood Count 4.11, Hemoglobin 8.9, Hematocrit 29, Mean Corpuscular Volume 72, Mean Corpuscular Hemoglobin 22, Mean Corpuscular Hemoglobin Concent 30, Red Cell Distribution Width 21.5, Platelet Count 431, Mean Platelet Volume 9.8, Neutrophils (%) (Auto) 69, Lymphocytes (%) (Auto) 20, Monocytes (%) (Auto) 9, Eosinophils (%) (Auto) 2, Basophils (%) (Auto) 1, Neutrophils # (Auto) 5.5, Lymphocytes # (Auto) 1.6, Monocytes # (Auto) 0.8, Eosinophils # (Auto) 0.1, Basophils # (Auto) 0.1, Sodium Level 147, Potassium Level 3.2, Chloride Level 111, Carbon Dioxide Level 29, Anion Gap 7, Blood Urea Nitrogen 18, Creatinine 1.09, Estimat Glomerular Filtration Rate 51, BUN/ Creatinine Ratio 17, Glucose Level 66, Calcium Level 9.3, Phosphorus Level 3.0, Magnesium Level 2.0, Total Bilirubin 0.5, Aspartate Amino Transf (AST/SGOT) 48, Alanine Aminotransferase (ALT/SGPT) 24, Alkaline Phosphatase 63, B-Type Natriuretic Peptide 1409.9, Total Protein 7.9, Albumin 3.9 09/28/17 05:38: White Blood Count 8.2, Red Blood Count 4.15, Hemoglobin 9.0, Hematocrit 29, Mean Corpuscular Volume 71, Mean Corpuscular Hemoglobin 22, Mean Corpuscular Hemoglobin Concent 31, Red Cell Distribution Width 22.9, Platelet Count 410, Mean Platelet Volume 10.6, Neutrophils (%) (Auto) 61, Lymphocytes (%) (Auto) 24 , Monocytes (%) (Auto) 11, Eosinophils (%) (Auto) 3, Basophils (%) (Auto) 1, Neutrophils # (Auto) 5.0, Lymphocytes # (Auto) 2.0, Monocytes # (Auto) 0.9, Eosinophils # (Auto) 0.3, Basophils # (Auto) 0.1, Sodium Level 142, Potassium Level 3.5, Chloride Level 107, Carbon Dioxide Level 23, Anion Gap 12, Blood Urea Nitrogen 27, Creatinine 0.85, Estimat Glomerular Filtration Rate > 60, BUN/ Creatinine Ratio 32, Glucose Level 98, Calcium Level 9.1, Phosphorus Level 3.9, Magnesium Level 2.2, Total Bilirubin 0.5, Aspartate Amino Transf (AST/SGOT) 74, Alanine Aminotransferase (ALT/SGPT) 35, Alkaline Phosphatase 62, B-Type Natriuretic Peptide 732.3, Total Protein 7.6, Albumin 3.7 09/29/17 05:19: White Blood Count 7.0, Red Blood Count 4.04, Hemoglobin 8.6, Hematocrit 29, Mean Corpuscular Volume 72, Mean Corpuscular Hemoglobin 21, Mean Corpuscular Hemoglobin Concent 30, Red Cell Distribution Width 24.2, Platelet Count 422, Mean Platelet Volume 10.1, Neutrophils (%) (Auto) 54, Lymphocytes (%) (Auto) 29 , Monocytes (%) (Auto) 10, Eosinophils (%) (Auto) 6, Basophils (%) (Auto) 1, Neutrophils # (Auto) 3.8, Lymphocytes # (Auto) 2.1, Monocytes # (Auto) 0.7, Eosinophils # (Auto) 0.4, Basophils # (Auto) 0.1, Sodium Level 141, Potassium Level 4.4, Chloride Level 108, Carbon Dioxide Level 28, Anion Gap 5, Blood Urea Nitrogen 20, Creatinine 0.74, Estimat Glomerular Filtration Rate > 60, BUN/ Creatinine Ratio 27, Glucose Level 89, Calcium Level 8.8, Phosphorus Level 4.4, Magnesium Level 2.1, Total Bilirubin 0.2, Aspartate Amino Transf (AST/SGOT) 59, Alanine Aminotransferase (ALT/SGPT) 38, Alkaline Phosphatase 63, Total Protein 7.1, Albumin 3.5 Radiology Reviewed CAT scan of head. No intracranial pathology Discharge Home Medications: Active Scripts Active Furosemide 40 Mg Tablet 40 Mg PO DAILY 21 Days Levetiracetam 500 Mg Tablet 500 Mg PO BID 30 Days Azithromycin 250 Mg Tablet 250 Mg PO DAILY 4 Days Cephalexin 250 Mg Capsule 500 Mg PO TID 5 Days Reported Promethazine-Codeine Syrup (Promethazine HCl/Codeine) 118 Ml Syrup 10 Ml PO Q8H PRN Tylenol (Acetaminophen) 325 Mg Tablet 650 Mg PO Q4H PRN TAKES 2 (325MG) TABLETS Milk of Magnesia (Magnesium Hydroxide) 400 Mg/5 Ml Oral.susp 30 Ml PO DAILY PRN Miralax (Polyethylene Glycol 3350) 17 Gm Powd.pack 17 Gm PO BID PRN Loratadine 10 Mg Tablet 10 Mg PO DAILY Daily Multiple Vitamin (Multivitamin) 1 Each Tablet 1 Tab PO DAILY Docusate Sodium-Senna Tablet (Sennosides/Docusate Sodium) 1 Each Tablet 1 Tab PO DAILY Clonazepam 2 Mg Tablet 2 Mg PO 1600 Gentle Laxative (Bisacodyl) 5 Mg Tablet.dr 10 Mg PO MOWEFR@1600 TAKES 2 (5MG) TABLETS MON, WED, FRI @ 1600 Stool Softener (Docusate Calcium) 240 Mg Capsule 240 Mg PO DAILY Instructions to patient/family Please see electronic discharge instructions given to patient. Clinical Quality Measures DVT/VTE Risk/Contraindication: Risk Factor Score Per Nursin RFS Level Per Nursing on Admit: 4+=Very High EVE SOSA DO Oct 03, 2017 07:14
== END 2017-09-29 13:05 | disposition home or self-care (01) | DRG 871 ==
LOC: EDUNIT# 19:19 → ER 19:20 → ICU 22:10 → 4TH 09-27 06:27
PROVIDERS: ADMIT Family Medicine; ATTEND Family Medicine
DX: A41.51 Sepsis due to Escherichia coli [E. coli] (principal); R65.20 Severe sepsis without septic shock; J18.9 Pneumonia, unspecified organism; N39.0 Urinary tract infection, site not specified; E87.2 Acidosis; F84.9 Pervasive developmental disorder, unspecified; J81.0 Acute pulmonary edema; J98.11 Atelectasis; F72 Severe intellectual disabilities; R09.02 Hypoxemia; J30.2 Other seasonal allergic rhinitis; F42.9 Obsessive-compulsive disorder, unspecified; K59.09 Other constipation; F41.9 Anxiety disorder, unspecified; F31.9 Bipolar disorder, unspecified; G40.909 Epilepsy, unspecified, not intractable, without status epilepticus
CPT/HCPCS: 36415; 36430; 36600; 51702; 70450; 71045; 80053; 81000; 82805; 83605; 83735; 83880; 84100; 84484; 85025; 86850; 86900; 86901; 86920; 87040; 87077; 87081; 87088; 87186; 87324; 87449; 93005; 94660; 96360; 99291

== ENCOUNTER → 2017-10-02 | Outpatient (CLI) | payer MEDICARE, MEDICAID ==
[~2017-10-02] MED LIST: ACET325T38 PO; AZIT250T12 PO; BISA5TAB19 PO; BISA5TAB8; CEPH250C PO; CLON2TAB3 PO; CODE118S2 PO; FURO40TA4 PO; LEVE500T6 PO; LORA10TA7 PO; MAGN400O7 PO; MU V; MULT-35 PO; POLY17PO6 PO; SENN1TAB6 PO; [UNRECOGNIZED DRUG - CODE] PO
--- NOTE | 2017-10-02 10:59 | Diagnostic Imaging Report ---
INDICATION: Followup. COMPARISON: 09/29/2017 FINDINGS: Two views of the chest are obtained. Overall, there has been moderate improvement since the prior study. Cardiomegaly persists. Central venous congestion has improved. There is much improved aeration of the lung bases when compared to the prior study with near complete resolution of the alveolar opacities and possible small effusions. There may be minimal persistent findings at the right lung base. No new abnormality is seen. Large hiatal hernia is again demonstrated. No new acute osseous abnormality seen. IMPRESSION: There is minimal persistent airspace disease and fluid at the right lung base with persistent cardiomegaly. Findings of failure however have shown moderate improvement from the prior study as described. Hiatal hernia is again noted. Dictated by: Dictated on workstation # [id number]
== END ==
LOC: RAD 10:21
PROVIDERS: ATTEND Family Medicine
DX: J90 Pleural effusion, not elsewhere classified (principal); I51.7 Cardiomegaly; K44.9 Diaphragmatic hernia without obstruction or gangrene
CPT/HCPCS: 71046

== ENCOUNTER → 2017-10-04 | Outpatient (CLI) | payer MEDICARE, MEDICAID ==
[2017-10-04 10:06] LABS: BUN/CREATININE RATIO 17; CALCIUM 9.7 MG/DL (8.5-10.1); CARBON DIOXIDE 28 MMOL/L (21-32); CHLORIDE 101 MMOL/L (98-107); CREATININE SERUM 0.93 MG/DL (0.60-1.30); GFR ESTIMATED > 60; GLUCOSE 94 MG/DL (70-105); SODIUM 141 MMOL/L (135-145)
--- NOTE | 2017-10-04 10:39 | Diagnostic Imaging Report ---
INDICATION: Followup pneumonia. TIME OF EXAMINATION: 10:56 a.m. COMPARISON: Correlation is made with prior study from 10/02/2017. FINDINGS: The heart size is stable. A large hiatal hernia is again noted. There appears to be some residual infiltrate or atelectasis in the right base medially. Left lung is clear. The pulmonary vascularity is normal. No significant effusion is seen. There is no pneumothorax. IMPRESSION: Mild improvement in right basilar infiltrate and pleural fluid when compared to examination from two days earlier. Dictated by: Dictated on workstation # [id number]
== END ==
LOC: RAD 09:41
PROVIDERS: ATTEND Family Medicine
DX: J18.9 Pneumonia, unspecified organism (principal); I50.9 Heart failure, unspecified
CPT/HCPCS: 36415; 71046; 80048

== ENCOUNTER → 2017-10-11 | Outpatient (CLI) | payer MEDICARE, MEDICAID ==
[~2017-10-11] MED LIST changes: +CLON2TAB12 PO; -CLON2TAB3 PO; -CODE118S2 PO; +CODE118S4 PO
--- NOTE | 2017-10-11 14:28 | Diagnostic Imaging Report ---
INDICATION: Pneumonia, follow-up. TECHNIQUE: Two-view chest at 11:06 a.m. CORRELATION STUDY: 10/04/2017. FINDINGS: Limited depth of inspiration. Heart size is enlarged. Vasculature appears within normal limits given technique. Findings compatible with likely a rather sizable hiatal hernia again demonstrated. Obscuration of the right diaphragm with what appears to be likely atelectasis and/or infiltrate of the right lung base. Left lung is generally stable. Slight accentuated thoracic kyphotic curvature. Prominent rightward curvature of the thoracolumbar spine. IMPRESSION: 1. There appears to be some degree of increasing consolidation and/or atelectasis at the right lung base from prior study. Findings are somewhat accentuated by limited depth of inspiration and likely some crowding at the lung bases from sizable hiatal hernia. Dictated by: Dictated on workstation # [id number]
== END ==
LOC: RAD 10:28
PROVIDERS: ATTEND Family Medicine
DX: J18.9 Pneumonia, unspecified organism (principal)
CPT/HCPCS: 71046

== ENCOUNTER → 2017-10-19 | Outpatient (CLI) | payer MEDICARE, MEDICAID ==
[~2017-10-19] MED LIST changes: -CLON2TAB12 PO; +CLON2TAB3 PO; +CODE118S2 PO; -CODE118S4 PO
--- NOTE | 2017-10-19 14:08 | Diagnostic Imaging Report ---
INDICATION: Follow-up pneumonia. TIME OF EXAM: 01:53 p.m. Correlation is made with prior study from 10/11/2017. FINDINGS: The heart size is stable. Large hiatal hernia is again noted. The infiltrate in the right base has significantly improved. There may be minimal infiltrate remaining. Otherwise, the lungs are clear. The pulmonary vascularity is normal. No effusion or pneumothorax is seen. IMPRESSION: Improved aeration to the right lower lobe when compared with examination from 10/11/2017. Dictated by: Dictated on workstation # [id number]
== END ==
LOC: RAD 13:26
PROVIDERS: ATTEND Family Medicine
DX: J18.9 Pneumonia, unspecified organism (principal)
CPT/HCPCS: 71046

== ENCOUNTER 2018-03-20 10:25 | Outpatient (CLI) | payer SELFPAY ==
[~2018-03-20] VITALS: Ht 175.3 cm; Wt 62.6 kg
[~2018-03-20 10:25] MED LIST changes: +CLON2TAB12 PO; -CLON2TAB3 PO; -CODE118S2 PO; +CODE118S4 PO; -SENN1TAB6 PO; +SENN1TAB7 PO
[2018-03-21] MEDS ORDERED: FERR325T5 PO (13:34)
[2018-03-21] MEDS ORDERED: LEVE500T6 PO (13:34)
== END 2018-03-20 15:00 | disposition home or self-care (01) ==
LOC: MERGE 10:25 → PREOP 10:25
PROVIDERS: ATTEND Specialist
DX: Z01.818 Encounter for other preprocedural examination (principal)

== ENCOUNTER 2018-03-26 09:45 | Day surgery (SDC) | payer MEDICARE, MEDICAID ==
[~2018-03-26] VITALS: Ht 175.3 cm; Wt 62.6 kg
[~2018-03-26 09:45] MED LIST changes: +FERR325T5 PO
[2018-03-26 10:05] VITALS: BP 143/73
--- NOTE | 2018-03-26 10:43 | Progress Note-Pre Operative ---
Pre-Operative Progress Note H&P Reviewed The H&P was reviewed, patient examined and no changes noted. Date Seen by Provider: Mar 26, 2018 Time Seen by Provider: 10:30 Date H&P Reviewed: Mar 26, 2018 Time H&P Reviewed: 10:30 Pre-Operative Diagnosis: grossly carious teeth,1,2,3,5,[id number],21,22,28 ,32,17. IRASEMA PULLIAM DDS Mar 26, 2018 10:43 am
--- NOTE | 2018-03-26 10:45 | Progress Note-Pre Operative ---
Pre-Operative Progress Note H&P Reviewed The H&P was reviewed, patient examined and no changes noted. Date Seen by Provider: Mar 26, 2018 Time Seen by Provider: 10:30 Date H&P Reviewed: Mar 26, 2018 Time H&P Reviewed: :30 Pre-Operative Diagnosis: senile dementia. grossly carious teeth. IRASEMA PULLIAM DDS Mar 26, 2018 10:45 am
[2018-03-26] MEDS ORDERED: LACTATED RINGERS 1,000 ML IV PRN (10:46)
[2018-03-26] MEDS ORDERED: ROPIVACAINE 5MG/ML 30ML VIAL ONE (10:50)
[2018-03-26] MEDS ORDERED: LIDOCAINE/EPI 2% 1:100,00 (XYLOCAINE) 20 ML VIAL ONE (10:50)
[2018-03-26] MEDS ORDERED: SEVOFLURANE (ULTANE) 15 ML INHAL SOLN ONE (10:56)
[2018-03-26] MEDS ORDERED: proPOfol 200 MG/20 ML (DIPRIVAN) VIAL IV ONE (10:56)
[2018-03-26] MEDS ORDERED: ROCURONIUM 10 MG/ML 5 ML SYRINGE IV ONE (10:56)
[2018-03-26] MEDS ORDERED: DEXAMETHASONE 10 MG/ML (DECADRON) 1 ML VIAL ONE (10:56)
[2018-03-26] MEDS ORDERED: LIDOCAINE JELLY 2% (XYLOCAINE) 5 ML TUBE ONE (10:56)
[2018-03-26] MEDS ORDERED: MIDAZOLAM 2 MG/2 ML (VERSED) VIAL ONE (10:56)
[2018-03-26] MEDS ORDERED: LIDOCAINE PF 2% 2 ML (XYLOCAINE) VIAL ONE (10:56)
[2018-03-26] MEDS ORDERED: ONDANSETRON 4 MG/2 ML (SDV) Z0FRAN ONE (10:56)
[2018-03-26] MEDS ORDERED: fentaNYL INJECTION 100 MCG/2 ML AMP ONE (10:57)
[2018-03-26] MEDS ORDERED: DEXAMETHASONE 4 MG/ML SDV (DECADRON) IV SCH (11:00)
[2018-03-26] MEDS ORDERED: HYDROmorphone 2 MG/ML VIAL (DILAUDID) IV PRN (11:00)
[2018-03-26] MEDS ORDERED: HYDROcodone/APAP 7.5MG-325 MG/15 ML (LORTAB) UDC PO PRN (11:00)
[2018-03-26] MEDS ORDERED: PHENYLEPHRINE 0.25% NASAL SPR (NEO-SYNEPHRINE) 15 ML NS ONE ×2 (11:11→11:30)
[2018-03-26] MEDS ORDERED: ceFAZolin 1,000 MG/10 ML (ANCEF) VIAL ONE (11:26)
[2018-03-26] MEDS ORDERED: GLYCOPYRROLATE 0.2 MG/ML (ROBINUL) 2 ML VIAL ONE (11:35)
[2018-03-26] MEDS ORDERED: NEOSTIGMINE 1 MG/ML 5 ML SYRINGE ONE (11:35)
[2018-03-26] MEDS ORDERED: PHENYLEPHRINE 100 MCG/ML 10 ML (ANESTHESIA) SYR ONE (11:42)
[2018-03-26] MEDS ORDERED: HYDR-4226 PO (12:12)
[2018-03-26] MEDS ORDERED: AMOX500C2 PO (12:12)
[2018-03-26 12:40] VITALS: BP 103/75
[2018-03-26] MEDS ORDERED: ceFAZolin 1,000 MG/10 ML (ANCEF) VIAL IV ONE (12:45)
[2018-03-26 13:10] VITALS: BP 114/86
[2018-03-26 13:40] VITALS: BP 133/83
[2018-03-26 13:50] VITALS: BP 133/83
[2018-03-26] MEDS ORDERED: ceFAZolin INJECTION 1,000 MG in NS (IVPB) 50 ML IV SCH (14:00)
--- NOTE | 2018-03-26 14:35 | Anesthesia-General Post-Op ---
General Patient Condition Mental Status/LOC: Same as Preop Cardiovascular: Satisfactory Nausea/Vomiting: Absent Respiratory: Satisfactory Pain: Controlled Complications: Absent Post Op Complications Complications None Follow Up Care/Instructions Patient Instructions None needed. Anesthesia/Patient Condition Patient Condition Patient was seen after the surgery and she was doing well, no complaints, stable vital signs, no apparent adverse anesthesia problems. OTIS JORGENSEN DO Mar 26, 2018 14:35
== END 2018-03-26 14:05 | disposition home or self-care (01) ==
LOC: SDC 09:45
PROVIDERS: ATTEND Specialist
DX: K02.9 Dental caries, unspecified (principal); Z11.2 Encounter for screening for other bacterial diseases; F03.90 Unspecified dementia, unspecified severity, without behavioral disturbance, psychotic disturbance, mood disturbance, and anxiety; G40.909 Epilepsy, unspecified, not intractable, without status epilepticus; F31.9 Bipolar disorder, unspecified; F41.9 Anxiety disorder, unspecified; K59.09 Other constipation; F42.9 Obsessive-compulsive disorder, unspecified; F84.0 Autistic disorder; Z79.899 Other long term (current) drug therapy
CPT/HCPCS: 87081

== ENCOUNTER 2018-09-04 11:20 | Emergency (ER) | payer MEDICARE, MEDICAID ==
[~2018-09-04] VITALS: Ht 167.6 cm; Wt 68.0 kg
[~2018-09-04 11:20] MED LIST changes: +AMOX500C2 PO; +HYDR-4226 PO; +SENN-229 PO; -SENN1TAB7 PO
--- NOTE | 2018-09-04 11:33 | ED Neurological Problem ---
General Stated Complaint: SEIZURE History of Present Illness Date Seen by Provider: Sep 04, 2018 Time Seen by Provider: 11:20 Allergies and Home Medications Allergies Coded Allergies: No Known Drug Allergies (Unverified , 12/27/16) Home Medications Acetaminophen 325 Mg Tablet, 650 MG PO Q4H PRN for PAIN-MILD, (Reported) TAKES 2 (325MG) TABLETS Amoxicillin 500 Mg Capsule, 500 MG PO QID Prescribed by: KANDICE BULL on 03/26/18 1212 Bisacodyl 5 Mg Tablet.dr, 10 MG PO MoWeFr@1600, (Reported) TAKES 2 (5MG) TABLETS MON, WED, MON @ 1600 Clonazepam 2 Mg Tablet, 2 MG PO 1600, (Reported) Docusate Calcium 240 Mg Capsule, 240 MG PO DAILY, (Reported) Ferrous Sulfate 325 Mg Tablet.dr, 325 MG PO BID, (Reported) Hydrocodone/Acetaminophen 1 Each Tablet, 1 EACH PO Q4H Prescribed by: KANDICE BULL on 03/26/18 1212 Levetiracetam 500 Mg Tablet, 500 MG PO BID, (Reported) Loratadine 10 Mg Tablet, 10 MG PO DAILY, (Reported) Magnesium Hydroxide 400 Mg/5 Ml Oral.susp, 30 ML PO DAILY PRN for CONSTIPATION- 7TH LINE, (Reported) Multivitamin 1 Each Tablet, 1 TAB PO DAILY, (Reported) Promethazine HCl/Codeine 118 Ml Syrup, 10 ML PO Q8H PRN for COUGH, (Reported) Sennosides/Docusate Sodium 1 Each Tablet, 1 TAB PO DAILY, (Reported) Past Eeqdxst-Jciaik-Xrbmwa Hx Patient Social History Recent Hopitalizations: No Immunizations Up To Date Tetanus Booster (TDap): Unknown Seasonal Allergies Seasonal Allergies: Yes Past Medical History Surgeries: No Respiratory: No Cardiac: No Neurological: No (autism, OCD, MR) Reproductive Disorders: No Genitourinary: No Gastrointestinal: Yes (nausea) Chronic Constipation Musculoskeletal: No Endocrine: No HEENT: No Cancer: No Psychosocial: Yes (AUTISM,OCD,INTELLECTUAL DISORDER) Anxiety, Bipolar Integumentary: No Blood Disorders: No Family Medical History Seizure disorder twin sister Physical Exam Vital Signs Vital Signs - First Documented 09/04/18 11:20 Temp 97.3 Pulse 63 Resp 16 B/P (MAP) 136/62 (86) Pulse Ox 98 Capillary Refill : Height, Weight, BMI Height: 5'9.00" Weight: 138lbs. 0.0oz. 62.968049ge; 20.4 BMI Method:Estimated Procedures/Interventions Suture Size: 5-0 Progress/Results/Core Measures Results/Orders Lab Results Laboratory Tests Test 09/04/18 11:42 Range/Units Urine Color YELLOW Urine Clarity CLEAR Urine pH 6 5-9 Urine Specific [place] 1.025 H 1.016-1.022 Urine Protein NEGATIVE NEGATIVE Urine Glucose (UA) NEGATIVE NEGATIVE Urine Ketones NEGATIVE NEGATIVE Urine Nitrite NEGATIVE NEGATIVE Urine Bilirubin NEGATIVE NEGATIVE Urine Urobilinogen NORMAL NORMAL MG/DL Urine Leukocyte Esterase 1+ H NEGATIVE Urine RBC (Auto) NEGATIVE NEGATIVE Urine RBC NONE /HPF Urine WBC 2-5 /HPF Urine Squamous Epithelial Cells RARE /HPF Urine Crystals NONE /LPF Urine Bacteria NEGATIVE /HPF Urine Casts NONE /LPF Urine Mucus NEGATIVE /LPF Urine Culture Indicated NO My Orders Orders - JULIA LOPEZ Ua Culture If Indicated (09/04/18 11:26) Vital Signs/I&O 09/04/18 11:20 Temp 97.3 Pulse 63 Resp 16 B/P (MAP) 136/62 (86) Pulse Ox 98 Departure Impression Primary Impression: Seizure Disposition: 01 HOME, SELF-CARE Condition: Stable/Unchanged Departure-Patient Inst. Decision time for Depature: 13:06 Patient Instructions: Epilepsy in Adults Add. Discharge Instructions: Resume your home medications as previously prescribed. Follow-up with her primary care provider within 1 week for recheck. Return back to the emergency room for worsening symptoms or concerns as needed. JULIA LOPEZ Sep 04, 2018 11:33
[2018-09-04 12:25] LABS: BILIRUBIN,URINE NEGATIVE (NEGATIVE); CLARITY,URINE CLEAR; COLOR,URINE YELLOW; GLUCOSE, URINE (UA) NEGATIVE (NEGATIVE); KETONES,URINE NEGATIVE (NEGATIVE); LEUKOCYTE ESTERASE ,URINE 1+ (NEGATIVE); NITRITE,URINE NEGATIVE (NEGATIVE); PH,URINE 6 (5-9); PROTEIN,URINE NEGATIVE (NEGATIVE); UROBILINOGEN,URINE NORMAL (NORMAL)
[2018-09-04 12:45] LABS: BACTERIA,URINE NEGATIVE /HPF; SQUAMOUS EPITHELIAL CELL,UR RARE /HPF
[2018-09-04 13:15] VITALS: BP 136/62
[2018-09-05] MEDS ORDERED: LEVE250T5 PO (09:11)
[2018-09-05] MEDS ORDERED: SENN-145 PO (09:11)
[2018-09-05] MEDS ORDERED: BISA5TAB8 PO (09:11)
[2018-09-05] MEDS ORDERED: MULT1TAB69 PO (09:11)
[2018-09-05] MEDS ORDERED: LEVE500T6 PO (13:24)
== END 2018-09-04 13:15 | disposition home or self-care (01) ==
LOC: EDUNIT# 11:20 → ER 11:20
DX: R56.9 Unspecified convulsions (principal); F84.0 Autistic disorder; F42.9 Obsessive-compulsive disorder, unspecified; F41.9 Anxiety disorder, unspecified; F31.9 Bipolar disorder, unspecified
CPT/HCPCS: 81000; 99283

== ENCOUNTER 2018-09-04 14:02 | Observation (INO) | payer MEDICARE, MEDICAID ==
[~2018-09-04] VITALS: Ht 167.6 cm; Wt 65.8 kg
[2018-09-04] MEDS ORDERED: clonazePAM 0.5 MG (KlonoPIN) TAB PO ONE (14:30)
--- NOTE | 2018-09-04 14:35 | ED Neurological Problem ---
General Chief Complaint: Neurological Problems Stated Complaint: SEIZURES Nursing Triage Note: PT RETURNS TO ER AFTER BEING HERE EARLIER. PTS CAREGIVER STATES THAT PT IS HAVING SEIZURES SINCE LEAVING. PT IS ABLE TO FOLLOW COMMANDS, AND AMBULATE WHILE HAVING THESE "SEIZURES" Nursing Sepsis Screen: No Definite Risk Source: patient Exam Limitations: no limitations History of Present Illness Date Seen by Provider: Sep 04, 2018 Time Seen by Provider: 14:20 Initial Comments 63-year-old female who is brought to the emergency room by her cost estimator for reports of having 2 seizures since she was just recently discharged from the ER. The patient was seen and evaluated just earlier this morning by myself and a urine specimen was obtained due to recent history of increased seizures with urinary tract infections. The patient also had a recent change in her Keppra from a 500 mg twice a day to a to 50 mg twice a day. She sees Dr. Will for primary care. He is the one who manages her epilepsy. The patient is alert baseline on arrival to the emergency room. The patient did have an episode where she was staring off and not responsive to voice. Harness Worker reports that this is her normal seizure activity. Timing/Duration: 1-3 hours Associated Symptoms: seizures Allergies and Home Medications Allergies Coded Allergies: No Known Drug Allergies (Unverified , 12/27/16) Home Medications Acetaminophen 325 Mg Tablet, 650 MG PO Q4H PRN for PAIN-MILD, (Reported) TAKES 2 (325MG) TABLETS Amoxicillin 500 Mg Capsule, 500 MG PO QID Prescribed by: KANDICE BULL on 03/26/18 1212 Bisacodyl 5 Mg Tablet.dr, 10 MG PO MoWeFr@1600, (Reported) TAKES 2 (5MG) TABLETS MON, MON, MON @ 1600 Clonazepam 2 Mg Tablet, 2 MG PO 1600, (Reported) Docusate Calcium 240 Mg Capsule, 240 MG PO DAILY, (Reported) Ferrous Sulfate 325 Mg Tablet.dr, 325 MG PO BID, (Reported) Hydrocodone/Acetaminophen 1 Each Tablet, 1 EACH PO Q4H Prescribed by: KANDICE BULL on 03/26/18 1212 Levetiracetam 500 Mg Tablet, 500 MG PO BID, (Reported) Loratadine 10 Mg Tablet, 10 MG PO DAILY, (Reported) Magnesium Hydroxide 400 Mg/5 Ml Oral.susp, 30 ML PO DAILY PRN for CONSTIPATION- 7TH LINE, (Reported) Multivitamin 1 Each Tablet, 1 TAB PO DAILY, (Reported) Promethazine HCl/Codeine 118 Ml Syrup, 10 ML PO Q8H PRN for COUGH, (Reported) Sennosides/Docusate Sodium 1 Each Tablet, 1 TAB PO DAILY, (Reported) Patient Home Medication List Home Medication List Reviewed: Yes Review of Systems Review of Systems Constitutional: no symptoms reported, see HPI Psychiatric/Neurological: See HPI, [place] Seizures All Other Systems Reviewed Negative Unless Noted: Yes Past Uwhgetq-Pkksit-Caqrto Hx Past Med/Social Hx: Reviewed Nursing Past Med/Soc Hx Patient Social History Alcohol Use: Denies Use Recreational Drug Use: No Smoking Status: Never a Smoker Recent Foreign Travel: No Contact w/Someone Who Travel: No Recent Infectious Disease Expo: No Recent Hopitalizations: No Immunizations Up To Date Tetanus Booster (TDap): Unknown Seasonal Allergies Seasonal Allergies: Yes Past Medical History Surgeries: No Respiratory: No Cardiac: No Neurological: Yes (had one seizure in 10/11 when she was septic, none since or before) Reproductive Disorders: No Genitourinary: No Gastrointestinal: Yes (nausea) Chronic Constipation Musculoskeletal: No Endocrine: No HEENT: No Cancer: No Psychosocial: Yes (AUTISM,OCD,INTELLECTUAL DISORDER) Anxiety, Bipolar Integumentary: No Blood Disorders: No Family Medical History Reviewed Nursing Family Hx Seizure disorder twin sister Physical Exam Vital Signs Vital Signs - First Documented 09/04/18 14:06 Temp 98.1 Pulse 96 Resp 16 B/P (MAP) 111/56 (74) Pulse Ox 93 Capillary Refill : Less Than 3 Seconds Height, Weight, BMI Height: 5'6.00" Weight: 150lbs. 0.0oz. 68.300649xa; 20.4 BMI Method:Estimated General Appearance: WD/WN, no apparent distress HEENT: PERRL/EOMI, normal ENT inspection, TMs normal, pharynx normal Respiratory: chest non-tender, lungs clear, normal breath sounds, no respiratory distress, no accessory muscle use, respiratory distress Cardiovascular: normal peripheral pulses, regular rate, rhythm, no edema, no gallop, no JVD, no murmur Extremities: normal capillary refill Neurologic/Psychiatric: alert (to baseline), normal mood/affect Crainal Nerves: normal hearing, PERRL Skin: normal color, warm/dry Procedures/Interventions Suture Size: 5-0 Progress/Results/Core Measures Results/Orders Lab Results Laboratory Tests Test 09/04/18 14:35 Range/Units White Blood Count 6.8 4.3-11.0 10^3/uL Red Blood Count 3.08 L 4.35-5.85 10^6/uL Hemoglobin 8.4 L 11.5-16.0 G/DL Hematocrit 27 L 35-52 % Mean Corpuscular Volume 88 80-99 FL Mean Corpuscular Hemoglobin 27 25-34 PG Mean Corpuscular Hemoglobin Concent 31 L 32-36 G/DL Red Cell Distribution Width 13.5 10.0-14.5 % Platelet Count 445 H 130-400 10^3/uL Mean Platelet Volume 9.7 7.4-10.4 FL Neutrophils (%) (Auto) 68 42-75 % Lymphocytes (%) (Auto) 24 12-44 % Monocytes (%) (Auto) 7 0-12 % Eosinophils (%) (Auto) 0 0-10 % Basophils (%) (Auto) 1 0-10 % Neutrophils # (Auto) 4.7 1.8-7.8 X 10^3 Lymphocytes # (Auto) 1.7 1.0-4.0 X 10^3 Monocytes # (Auto) 0.5 0.0-1.0 X 10^3 Eosinophils # (Auto) 0.0 0.0-0.3 10^3/uL Basophils # (Auto) 0.0 0.0-0.1 10^3/uL Sodium Level 135 135-145 MMOL/L Potassium Level 3.9 3.6-5.0 MMOL/L Chloride Level 104 98-107 MMOL/L Carbon Dioxide Level 20 L 21-32 MMOL/L Anion Gap 11 5-14 MMOL/L Blood Urea Nitrogen 15 7-18 MG/DL Creatinine 0.82 0.60-1.30 MG/DL Estimat Glomerular Filtration Rate > 60 BUN/Creatinine Ratio 18 Glucose Level 123 H 70-105 MG/DL Calcium Level 9.0 8.5-10.1 MG/DL Corrected Calcium 9.2 8.5-10.1 MG/DL Total Bilirubin 0.3 0.1-1.0 MG/DL Aspartate Amino Transf (AST/SGOT) 24 5-34 U/L Alanine Aminotransferase (ALT/SGPT) 9 0-55 U/L Alkaline Phosphatase 84 40-136 U/L Total Protein 7.3 6.4-8.2 GM/DL Albumin 3.8 3.2-4.5 GM/DL Micro Results Microbiology 09/04/18 Influenza Types A,B Antigen (DIANNE) - Final, Complete My Orders Orders - JULIA LOPEZ Comprehensive Metabolic Panel (09/04/18 14:26) Cbc With Automated Diff (09/04/18 14:26) Influenza A And B Antigens (09/04/18 14:26) Ct Head Wo (09/04/18 14:26) Clonazepam Tablet (Klonopin Tablet) (09/04/18 14:30) Medications Given in ED Current Medications Medications Dose Ordered Sig/Bernardino Route Start Time Stop Time Status Last Admin Dose Admin Clonazepam 0.5 mg ONCE ONCE PO 09/04/18 14:30 09/04/18 14:31 DC 09/04/18 15:34 0.5 MG Vital Signs/I&O 09/04/18 14:06 Temp 98.1 Pulse 96 Resp 16 B/P (MAP) 111/56 (74) Pulse Ox 93 Blood Pressure Mean: 74 Progress Progress Note : Time: 15:44 Progress Note I have seen and evaluated the patient. She has had less episodes where she is staring off and unresponsive to verbal stimuli since her dose of Klonopin. Caretakers agree with plan for admission. Dr. Will was notified at this time and he agrees to accept the patient to his services. Diagnostic Imaging Diagonstic Imaging: CT Plain Films/CT/US/NM/MRI: head Comments NAME: ARIELLE HUBBARD [facility] REC#: [id number] PT STATUS: ADM Becca : 1955 PHYSICIAN: JULIA LOPEZ ADMIT DATE: 09/04/18/ Signed Date of Exam: 09/04/18 CT HEAD WO PROCEDURE: CT head without contrast. TECHNIQUE: Multiple contiguous axial images were obtained through the brain without the use of intravenous contrast. INDICATION: Seizures. COMPARISON: Correlation is made with head CT from 09/25/2017. FINDINGS: Ventricles and sulci are stable in appearance. Cavum septum pellucidum and cavum vergae is again seen. There is no sulcal effacement or midline shift. No acute intra-axial or extra-axial hemorrhage is detected. Cisterns are patent. Visualized paranasal sinuses are clear. IMPRESSION: Stable head CT. No acute features detected. Dictated by: Dictated on workstation # [id number] Dict: 09/04/18 1521 Trans: 09/04/18 1748 Interpreted by: LISA HAYNES MD Electronically signed by: LISA HAYNES MD 09/04/18 1748 Reviewed: Reviewed by Me Departure Communication (Admissions) Time/Spoke to Admitting Phy: 15:44 I have discussed the case with Dr. Will at this time and he agrees to admit the patient to his services. He recommends increasing the Keppra 500 mg by mouth twice a day. He also recommends IM lorazepam 1 mg every 2 hours when necessary seizures. Impression Primary Impression: Epilepsy Additional Impression: Chronic anemia Disposition: 01 HOME, SELF-CARE Condition: Stable/Unchanged Admissions Decision to Admit Reason: Admit from ER (General) Decision to Admit/Date: Sep 04, 2018 Time/Decision to Admit Time: 15:54 JULIA LOPEZ Sep 04, 2018 14:35
[2018-09-04 14:47] LABS: BASOPHILS % (AUTO) 1 % (0-10); EOSINOPHILS % (AUTO) 0 % (0-10); HEMATOCRIT 27 % (35-52); HEMOGLOBIN 8.4 G/DL (11.5-16.0); LYMPHOCYTES # (AUTO) 1.7 X 10^3 (1.0-4.0); LYMPHOCYTES % (AUTO) 24 % (12-44); MEAN CORPUSCULAR HEMOGLOBIN 27 PG (25-34); MEAN CORPUSCULAR HGB CONC 31 G/DL (32-36); MEAN CORPUSCULAR VOLUME 88 FL (80-99); MEAN PLATELET VOLUME 9.7 FL (7.4-10.4); MONOCYTES # (AUTO) 0.5 X 10^3 (0.0-1.0); MONOCYTES % (AUTO) 7 % (0-12); NEUTROPHILS # (AUTO) 4.7 X 10^3 (1.8-7.8); NEUTROPHILS % (AUTO) 68 % (42-75); PLATELET COUNT 445 10^3/uL (130-400); RED CELL DISTRIBUTION WIDTH 13.5 % (10.0-14.5); WHITE BLOOD COUNT 6.8 10^3/uL (4.3-11.0)
[2018-09-04 15:10] LABS: ALANINE AMINOTRANSFERASE 9 U/L (0-55); ALBUMIN 3.8 GM/DL (3.2-4.5); ALKALINE PHOSPHATASE 84 U/L (40-136); BILIRUBIN,TOTAL 0.3 MG/DL (0.1-1.0); BUN/CREATININE RATIO 18; CARBON DIOXIDE 20 MMOL/L (21-32); CHLORIDE 104 MMOL/L (98-107); CREATININE SERUM 0.82 MG/DL (0.60-1.30); GFR ESTIMATED > 60; GLUCOSE 123 MG/DL (70-105); POTASSIUM 3.9 MMOL/L (3.6-5.0); SODIUM 135 MMOL/L (135-145); TOTAL PROTEIN 7.3 GM/DL (6.4-8.2)
--- NOTE | 2018-09-04 15:35 | Diagnostic Imaging Report ---
PROCEDURE: CT head without contrast. TECHNIQUE: Multiple contiguous axial images were obtained through the brain without the use of intravenous contrast. INDICATION: Seizures. COMPARISON: Correlation is made with head CT from 09/25/2017. FINDINGS: Ventricles and sulci are stable in appearance. Cavum septum pellucidum and cavum vergae is again seen. There is no sulcal effacement or midline shift. No acute intra-axial or extra-axial hemorrhage is detected. Cisterns are patent. Visualized paranasal sinuses are clear. IMPRESSION: Stable head CT. No acute features detected. Dictated by: Dictated on workstation # [id number]
[2018-09-04] MEDS ORDERED: LORazepam INJ 2 MG/ML (ATIVAN) VIAL IM PRN (17:00)
--- NOTE | 2018-09-04 17:00 | NUR ---
ARIELLE HUBBARD admitted to room 419-1, with an admitting diagnosis of SEIZURES, on 09/04/18 from ER via W/C, accompanied by STAFF.ARIELLE HUBBARD introduced to surroundings, call light, bed controls, phone, TV, temperature control, lights, meal times, smoking policy, visitor policy, side rail policy, bathrooms and showers. Patient Rights given to patient in the handbook.ARIELLE HUBBARD verbalizes understanding that [facility] is not responsible for the loss or damage to any personal effects or valuables that are kept in the patients posession during their hospitalization. The following Patient Care Plans were discussed with the CAREGIVER: Discharge Planning, PAIN CONTROL,TESTS AND PROCEDURES, and SEIZURE PRECAUTIONS AND PREVENTION. ARIELLE HUBBARD verbalizes understanding of Interdisciplinary Patient Education. Patient and/or family were informed about the Rapid Response Team and its purpose.
[2018-09-04 19:00] VITALS: BP 111/56
[2018-09-04] MEDS ORDERED: FLU QUADRIvalent (5+ YOA) 2018-2019 (AFLURIA) 0.5 ML IM ONE (19:15)
[2018-09-04] MEDS: LEVETIRACETAM 500 MG (KEPPRA) TAB PO SCH (20:28)
[2018-09-05 00:29] VITALS: BP 109/56
[2018-09-05 04:51] VITALS: BP 116/62
[2018-09-05 05:20] LABS: BASOPHILS % (AUTO) 0 % (0-10); EOSINOPHILS % (AUTO) 0 % (0-10); HEMATOCRIT 27 % (35-52); HEMOGLOBIN 8.2 G/DL (11.5-16.0); LYMPHOCYTES # (AUTO) 0.9 X 10^3 (1.0-4.0); LYMPHOCYTES % (AUTO) 8 % (12-44); MEAN CORPUSCULAR HEMOGLOBIN 27 PG (25-34); MEAN CORPUSCULAR HGB CONC 31 G/DL (32-36); MEAN CORPUSCULAR VOLUME 87 FL (80-99); MEAN PLATELET VOLUME 9.9 FL (7.4-10.4); MONOCYTES # (AUTO) 0.7 X 10^3 (0.0-1.0); MONOCYTES % (AUTO) 6 % (0-12); NEUTROPHILS # (AUTO) 10.7 X 10^3 (1.8-7.8); NEUTROPHILS % (AUTO) 86 % (42-75); PLATELET COUNT 418 10^3/uL (130-400); RED CELL DISTRIBUTION WIDTH 13.9 % (10.0-14.5); WHITE BLOOD COUNT 12.4 10^3/uL (4.3-11.0)
[2018-09-05 05:42] LABS: ALANINE AMINOTRANSFERASE 9 U/L (0-55); ALBUMIN 3.6 GM/DL (3.2-4.5); ALKALINE PHOSPHATASE 82 U/L (40-136); BILIRUBIN,TOTAL 0.4 MG/DL (0.1-1.0); BUN/CREATININE RATIO 18; CALCIUM 8.6 MG/DL (8.5-10.1); CARBON DIOXIDE 22 MMOL/L (21-32); CHLORIDE 107 MMOL/L (98-107); CREATININE SERUM 0.76 MG/DL (0.60-1.30); GFR ESTIMATED > 60; GLUCOSE 103 MG/DL (70-105); POTASSIUM 3.9 MMOL/L (3.6-5.0); SODIUM 136 MMOL/L (135-145); TOTAL PROTEIN 6.8 GM/DL (6.4-8.2)
[2018-09-05] MEDS ORDERED: FERROUS SULF 325 MG (IRON) TAB PO SCH (07:46)
--- NOTE | 2018-09-05 07:47 | Progress Note (SOAP) ---
Subjective Time Seen by a Provider: 07:42 Subjective/Events-last exam Patient had a seizure and would not stop and was sent out to the emergency room. Patient sent back home. Patient had 2 more seizures and sent back To the emergency room. Patient has severe mentally retardation. Chronic anemia. History of epilepsy. Patient is taken care of by caretakers. Patient's Keppra dose was increased to 500 mg twice a day. Patient admitted for observation. Patient coughing this morning Objective Exam Vital Signs Date Time Temp Pulse Resp B/P (MAP) Pulse Ox O2 Delivery O2 Flow Rate FiO2 09/05/18 04:51 99.0 83 22 116/62 (80) 92 Nasal Cannula 2.00 09/05/18 00:29 98.3 88 18 109/56 (73) 93 Room Air 09/04/18 20:00 Room Air 09/04/18 19:00 98.1 96 16 111/56 93 09/04/18 16:15 98.1 96 16 111/56 (74) 93 09/04/18 14:06 98.1 96 16 111/56 (74) 93 I & O 09/05/18 07:00 Intake Total 1150 ml Balance 1150 ml Capillary Refill : Less Than 3 Seconds General Appearance: No Apparent Distress, WD/WN HEENT: Normal ENT Inspection Neck: Full Range of Motion, Normal Inspection Respiratory: No Accessory Muscle Use, No Respiratory Distress, Other (Coughing) Cardiovascular: Regular Rate, Rhythm, No Murmur Gastrointestinal: non tender, soft Results Lab Laboratory Tests 09/04/18 14:35 09/05/18 04:57 Laboratory Tests 09/04/18 14:35: White Blood Count 6.8, Red Blood Count 3.08L, Hemoglobin 8.4L, Hematocrit 27L, Mean Corpuscular Volume 88, Mean Corpuscular Hemoglobin 27, Mean Corpuscular Hemoglobin Concent 31L, Red Cell Distribution Width 13.5, Platelet Count 445H, Mean Platelet Volume 9.7, Neutrophils (%) (Auto) 68, Lymphocytes (%) (Auto) 24, Monocytes (%) (Auto) 7, Eosinophils (%) (Auto) 0, Basophils (%) (Auto) 1, Neutrophils # (Auto) 4.7, Lymphocytes # (Auto) 1.7, Monocytes # (Auto) 0.5, Eosinophils # (Auto) 0.0, Basophils # (Auto) 0.0, Sodium Level 135, Potassium Level 3.9, Chloride Level 104, Carbon Dioxide Level 20L, Anion Gap 11, Blood Urea Nitrogen 15, Creatinine 0.82, Estimat Glomerular Filtration Rate > 60, BUN/ Creatinine Ratio 18, Glucose Level 123H, Calcium Level 9.0, Corrected Calcium 9.2, Total Bilirubin 0.3, Aspartate Amino Transf (AST/SGOT) 24, Alanine Aminotransferase (ALT/SGPT) 9, Alkaline Phosphatase 84, Total Protein 7.3, Albumin 3.8 09/05/18 04:57: White Blood Count 12.4H, Red Blood Count 3.05L, Hemoglobin 8.2L, Hematocrit 27L , Mean Corpuscular Volume 87, Mean Corpuscular Hemoglobin 27, Mean Corpuscular Hemoglobin Concent 31L, Red Cell Distribution Width 13.9, Platelet Count 418H, Mean Platelet Volume 9.9, Neutrophils (%) (Auto) 86H, Lymphocytes (%) (Auto) 8L , Monocytes (%) (Auto) 6, Eosinophils (%) (Auto) 0, Basophils (%) (Auto) 0, Neutrophils # (Auto) 10.7H, Lymphocytes # (Auto) 0.9L, Monocytes # (Auto) 0.7, Eosinophils # (Auto) 0.0, Basophils # (Auto) 0.0, Sodium Level 136, Potassium Level 3.9, Chloride Level 107, Carbon Dioxide Level 22, Anion Gap 7, Blood Urea Nitrogen 14, Creatinine 0.76, Estimat Glomerular Filtration Rate > 60, BUN/ Creatinine Ratio 18, Glucose Level 103, Calcium Level 8.6, Corrected Calcium 8.9 , Total Bilirubin 0.4, Aspartate Amino Transf (AST/SGOT) 25, Alanine Aminotransferase (ALT/SGPT) 9, Alkaline Phosphatase 82, Total Protein 6.8, Albumin 3.6 Microbiology 09/04/18 Influenza Types A,B Antigen (DIANNE) - Final, Complete Assessment/Plan Assessment/Plan Assess & Plan/Chief Complaint Seizures. Chronic anemia. Severe MR Clinical Quality Measures DVT/VTE Risk/Contraindication: Risk Factor Score Per Nursin RFS Level Per Nursing on Admit: 4+=Very High EVE SOSA DO Sep 05, 2018 07:47
--- NOTE | 2018-09-05 07:51 | History & Physicial ---
History of Present Illness History of Present Illness Reason for visit/HPI Patient had seizure at assisted living and won't stop. Patient sent out to the emergency room. Patient sent home and had 2 more seizures. Patient sent out to the emergency room. Patient has not had seizures in a long time. Patient on Keppra. Patient has severe MR. Patient has chronic anemia. Patient has caretakers to take care of her Date of Admission Sep 04, 2018 at 15:55 Time Seen by a Provider: 07:47 I consulted on this patient on 09/05/18 07:47 Attending Physician Jarvis Sosa DO Admitting Physician Jarvis Sosa DO Consult Allergies and Home Medications Allergies Coded Allergies: No Known Drug Allergies (Unverified , 12/27/16) Home Medications Acetaminophen 325 Mg Tablet, 650 MG PO Q4H PRN for PAIN-MILD, (Reported) TAKES 2 (325MG) TABLETS Amoxicillin 500 Mg Capsule, 500 MG PO QID Prescribed by: KANDICE BULL on 03/26/18 1212 Bisacodyl 5 Mg Tablet.dr, 10 MG PO MoWeFr@1600, (Reported) TAKES 2 (5MG) TABLETS MON, WED, FRI @ 1600 Clonazepam 2 Mg Tablet, 2 MG PO 1600, (Reported) Docusate Calcium 240 Mg Capsule, 240 MG PO DAILY, (Reported) Ferrous Sulfate 325 Mg Tablet.dr, 325 MG PO BID, (Reported) Hydrocodone/Acetaminophen 1 Each Tablet, 1 EACH PO Q4H Prescribed by: KANDICE BULL on 03/26/18 1212 Levetiracetam 500 Mg Tablet, 500 MG PO BID, (Reported) Loratadine 10 Mg Tablet, 10 MG PO DAILY, (Reported) Magnesium Hydroxide 400 Mg/5 Ml Oral.susp, 30 ML PO DAILY PRN for CONSTIPATION- 7TH LINE, (Reported) Multivitamin 1 Each Tablet, 1 TAB PO DAILY, (Reported) Promethazine HCl/Codeine 118 Ml Syrup, 10 ML PO Q8H PRN for COUGH, (Reported) Sennosides/Docusate Sodium 1 Each Tablet, 1 TAB PO DAILY, (Reported) Patient Home Medication List Home Medication List Reviewed: No Past Oehbrsr-Ntuecl-Arzddv Hx Patient Social History Marrital Status: single Employed/Student: unemployed Alcohol Use: Denies Use Recreational Drug Use: No Smoking Status: Never a Smoker Recent Foreign Travel: No Contact w/other who traveled: No Recent Hopitalizations: No Recent Infectious Disease Expo: No Immunizations Up To Date Tetanus Booster (TDap): Unknown Date of Influenza Vaccine: Jun 06, 2018 Seasonal Allergies Seasonal Allergies: Yes Surgeries No Respiratory No Cardiovascular No Neurological Yes (had one seizure in 10/11 when she was septic, none since or before) Reproductive System Hx Reproductive Disorders: No Genitourinary No Gastrointestinal Yes (nausea) Chronic Constipation Musculoskeletal No Endocrine History of Endocrine Disorders: No HEENT History of HEENT Disorders: No Cancer No Psychosocial History of Psychiatric Problem: Yes (AUTISM,OCD,INTELLECTUAL DISORDER) Behavioral Health Disorders: Anxiety, Bipolar Integumentary History of Skin or Integumenta: No Blood Transfusions History of Blood Disorders: No Family Medical History Family Hx: Seizure disorder twin sister Review of Systems Constitutional: other (Seizures) EENTM: no symptoms reported Respiratory: cough Cardiovascular: no symptoms reported Gastrointestinal: no symptoms reported Physical Exam Vital Signs Vital Signs - First Documented 09/04/18 09/04/18 09/05/18 14:06 20:00 04:51 Temp 98.1 Pulse 96 Resp 16 B/P (MAP) 111/56 (74) Pulse Ox 93 O2 Delivery Room Air O2 Flow Rate 2.00 Capillary Refill : Less Than 3 Seconds Height, Weight, BMI Height: 5'6.00" Weight: 145lbs. 0.0oz. 65.632410lu; 23.4 BMI Method:Estimated General Appearance: No Apparent Distress, WD/WN Eyes: Bilateral Eye Normal Inspection HEENT: Normal ENT Inspection Neck: Full Range of Motion, Normal Inspection Respiratory: No Accessory Muscle Use, No Respiratory Distress, Other (Cough) Cardiovascular: Regular Rate, Rhythm, No Murmur Gastrointestinal: Non Tender, Soft Assessment/Plan Assessment and Plan Seizure. Severe MR. Chronic anemia. Cough. No seizures since admission Admission Diagnosis Admission Status: Observation Clinical Quality Measures DVT/VTE Risk/Contraindication: Risk Factor Score Per Nursin RFS Level Per Nursing on Admit: 4+=Very High JARVIS SOSA DO Sep 05, 2018 07:51
[2018-09-05 07:58] LABS: ABSOLUTE RETIC # 44 10e9/L (24-90); BASOPHILS % (AUTO) 0 % (0-10); EOSINOPHILS # (AUTO) 0.1 10^3/uL (0.0-0.3); EOSINOPHILS % (AUTO) 1 % (0-10); HEMATOCRIT 26 % (35-52); HEMOGLOBIN 8.2 G/DL (11.5-16.0); LYMPHOCYTES # (AUTO) 0.9 X 10^3 (1.0-4.0); LYMPHOCYTES % (AUTO) 8 % (12-44); MEAN CORPUSCULAR HEMOGLOBIN 27 PG (25-34); MEAN CORPUSCULAR HGB CONC 31 G/DL (32-36); MEAN CORPUSCULAR VOLUME 88 FL (80-99); MEAN PLATELET VOLUME 10.2 FL (7.4-10.4); MONOCYTES # (AUTO) 0.8 X 10^3 (0.0-1.0); MONOCYTES % (AUTO) 6 % (0-12); NEUTROPHILS # (AUTO) 10.6 X 10^3 (1.8-7.8); NEUTROPHILS % (AUTO) 86 % (42-75); PLATELET COUNT 344 10^3/uL (130-400); RED CELL DISTRIBUTION WIDTH 13.9 % (10.0-14.5); RETICULOCYTE % 1.47 % (0.50-2.40); WHITE BLOOD COUNT 12.4 10^3/uL (4.3-11.0)
[2018-09-05 08:00] VITALS: BP 150/58
[2018-09-05 08:48] LABS: ANISOCYTOSIS SLIGHT; BAND NEUTROPHILS 0 %; BASOPHILS % (MANUAL) 0 %; EOSINOPHILS % (MANUAL) 0 %; LYMPHOCYTES % (MANUAL) 9 %; MONOCYTES % (MANUAL) 5 %; NEUTROPHILS % (MANUAL) 86 %
[2018-09-05] MEDS ORDERED: MULT1TAB69 PO (09:11)
[2018-09-05] MEDS ORDERED: SENN-145 PO (09:11)
[2018-09-05] MEDS ORDERED: LEVE250T5 PO (09:11)
[2018-09-05] MEDS ORDERED: BISA5TAB8 PO (09:11)
--- NOTE | 2018-09-05 09:16 | NUR ---
WENT OVER THE MEDICATION LIST WITH THE PATIENT'S CAREGIVER IN THE ROOM. SHE VERIFIED WHAT MEDICATIONS THE PATIENT TAKES. I CALLED AND VERIFIED WITH [facility]. [facility] FILLED: 08-20-18 CLONAZEPAM 2MG HS 08-13-18 KEPPRA 250MG BID STOOL SOFTENER 8.6/50 DAILY MTV DAILY BISACODYL 5MG 2 THREE TIMES A WEEK LORATADINE 10MG DAILY IRON 325MG BID (PATIENT STOPPED THIS IN JUNE) ADDITIONALLY CAREGIVER STATES THE PATIENT TAKES DOCUSATE CALCIUM 240MG DAILY AND USES TYLENOL AND MILK OF MAG PRN OTC.
[2018-09-05] MEDS: LEVETIRACETAM 500 MG (KEPPRA) TAB PO SCH (09:34)
--- NOTE | 2018-09-05 10:23 | Diagnostic Imaging Report ---
INDICATION: Cough. TECHNIQUE: Two view chest at 9:45 AM. CORRELATION STUDY: 10/19/2017. FINDINGS: Heart size is enlarged. Vasculature is relatively normal on followup. Findings consistent with a large hiatal hernia. Minimal amount of atelectasis at the lung bases. No definitive consolidating infiltrate. IMPRESSION: 1. Negative for acute abnormality in the chest. 2. Cardiac enlargement without evidence for failure. Dictated by: Dictated on workstation # [id number]
[2018-09-05 12:00] VITALS: BP 103/68
[2018-09-05] MEDS ORDERED: LEVE500T6 PO (13:24)
[2018-09-05 13:35] VITALS: BP 103/68
--- NOTE | 2018-09-05 13:35 | NUR ---
ARIELLE HUBBARD demonstrates understanding of discharge instructions and accurately returns instructions upon questioning. Copy of Post-Discharge Instructions given to CAREGIVER. ARIELLE HUBBARD is able to manage continuing needs after discharge WITH CAREGIVERS. Patients belongings returned to PT. Patient discharged from 419-1 on 09/11/18 at 1335. ARIELLE HUBBARD left floor via W/C, accompanied by STAFF AND FAMILY. Addendum: 09/05/18 at 1339 by JOSE MALAVE RN CAREGIVER DEMONSTRATES UNDERSTANDING
--- NOTE | 2018-09-06 07:00 | Clinic Account Progress/Dx ---
Clinic Account Progress/Dx DIAGNOSIS: Time Seen by Provider: 06:59 3 seizures. Severe MR. Chronic anemia EVE SOSA DO Sep 06, 2018 07:00
== END 2018-09-05 13:35 | disposition home or self-care (01) ==
LOC: EDUNIT# 14:02 → ER 14:03 → 4TH 15:55
PROVIDERS: ADMIT Family Medicine; ATTEND Family Medicine
DX: G40.909 Epilepsy, unspecified, not intractable, without status epilepticus (principal); D63.8 Anemia in other chronic diseases classified elsewhere; R05 Cough; F72 Severe intellectual disabilities; F84.0 Autistic disorder; F42.9 Obsessive-compulsive disorder, unspecified; F41.9 Anxiety disorder, unspecified; F31.9 Bipolar disorder, unspecified; K59.09 Other constipation; Z79.899 Other long term (current) drug therapy
CPT/HCPCS: 36415; 70450; 71046; 80053; 82607; 82728; 82746; 83540; 85007; 85025; 85027; 85045; 87804; G0378

== ENCOUNTER → 2018-09-20 | Outpatient (CLI) | payer MEDICARE, MEDICAID ==
[~2018-09-20] MED LIST changes: +BISA5TAB8 PO; +LEVE250T5 PO; +MULT1TAB69 PO; +SENN-145 PO
--- NOTE | 2018-09-20 15:29 | Diagnostic Imaging Report ---
INDICATION: Recent injury. Change in gait. COMPARISON: None. FINDINGS: AP view of the pelvis and two dedicated radiographic views of the left hip were obtained. There is no fracture, dislocation, bone destruction, or radiopaque foreign body. The visualized pelvic osseous structures and the SI joints demonstrate no acute fracture or dislocation. There is no bone destruction or radiopaque foreign body. The surrounding soft tissue structures are unremarkable. IMPRESSION: 1. No acute fracture or dislocation in the pelvis or left hip. Dictated by: Dictated on workstation # [id number]
== END ==
LOC: RAD 14:48
PROVIDERS: ATTEND Family Medicine
DX: S79.912A Unspecified injury of left hip, initial encounter (principal)

== ENCOUNTER → 2019-07-12 | Outpatient (CLI) | payer MEDICARE, MEDICAID ==
--- NOTE | 2019-07-12 12:45 | Diagnostic Imaging Report ---
INDICATION: Cough and shortness of breath. TIME OF EXAM: 12:32 p.m. COMPARISON: Comparison is made with prior chest 09/05/2018. FINDINGS: Large hiatal hernia is again noted. This does partially obscure the lung bases. There is minimal linear scarring or atelectasis in the left base. No definite infiltrate is seen. No effusion or pneumothorax is detected. Heart size is stable. IMPRESSION: Large hiatal hernia with minimal subsegmental atelectasis or scarring in the left base. No acute infiltrate is identified. Dictated by: Dictated on workstation # [id number]
[2019-07-12 13:11] LABS: HEMOGLOBIN 10.2 G/DL (11.5-16.0); MEAN PLATELET VOLUME 10.6 FL (7.4-10.4); RED CELL DISTRIBUTION WIDTH 13.7 % (10.0-14.5)
[2019-07-12 13:30] LABS: ALANINE AMINOTRANSFERASE 11 U/L (0-55); ALBUMIN 3.7 GM/DL (3.2-4.5); ALKALINE PHOSPHATASE 76 U/L (40-136); BILIRUBIN,TOTAL < 0.1 MG/DL (0.1-1.0); BUN/CREATININE RATIO 15; CALCIUM 8.9 MG/DL (8.5-10.1); CARBON DIOXIDE 20 MMOL/L (21-32); CHLORIDE 108 MMOL/L (98-107); CREATININE SERUM 0.78 MG/DL (0.60-1.30); GFR ESTIMATED > 60; GLUCOSE 94 MG/DL (70-105); POTASSIUM 4.5 MMOL/L (3.6-5.0); SODIUM 137 MMOL/L (135-145); TOTAL PROTEIN 7.3 GM/DL (6.4-8.2)
== END ==
LOC: RAD 12:01
PROVIDERS: ATTEND Family Medicine
DX: R05 Cough (principal); R06.02 Shortness of breath; K44.9 Diaphragmatic hernia without obstruction or gangrene
CPT/HCPCS: 36415; 71046; 80053; 83880; 85027

== ENCOUNTER 2019-08-27 08:21 | Emergency (ER) | payer MEDICARE, MEDICAID ==
[~2019-08-27] VITALS: Ht 165 cm; Wt 70.0 kg
--- NOTE | 2019-08-27 08:29 | ED General ---
General Stated Complaint: HYPOTENSION Source of Information: Patient Exam Limitations: No Limitations History of Present Illness Date Seen by Provider: Aug 27, 2019 Time Seen by Provider: 08:29 Initial Comments 64-year-old female brought in due to concerns with low blood pressure. Patient was taken to the restroom where she got weak and fell. When they checked her blood pressure it was in the 70 systolic. When EMS got there it was in the 90s and his increased up into the 100s. Patient was recently started on metoprolol is only taken a couple doses. Patient has MR and is nonverbal. Family does not report any fevers chills nausea vomiting or any other systemic complaints. Allergies and Home Medications Allergies Coded Allergies: No Known Drug Allergies (Unverified , 12/27/16) Home Medications Acetaminophen 325 Mg Tablet, 650 MG PO Q4H PRN for PAIN-MILD, (Reported) TAKES 2 (325MG) TABLETS Bisacodyl 5 Mg Tablet.dr, 10 MG PO MoWeFr@2100, (Reported) Clonazepam 2 Mg Tablet, 2 MG PO HS, (Reported) Docusate Calcium 240 Mg Capsule, 240 MG PO DAILY, (Reported) Levetiracetam 500 Mg Tablet, 500 MG PO BID Prescribed by: JOSE MALAVE on 09/05/18 1324 Loratadine 10 Mg Tablet, 10 MG PO DAILY, (Reported) Magnesium Hydroxide 400 Mg/5 Ml Oral.susp, 30 ML PO DAILY PRN for CONSTIPATION- 7TH LINE, (Reported) Multivitamin 1 Each Tablet, 1 TAB PO DAILY, (Reported) Sennosides/Docusate Sodium 1 Each Tablet, 1 TAB PO DAILY, (Reported) Patient Home Medication List Home Medication List Reviewed: Yes Review of Systems Review of Systems Constitutional: No chills, No fever; weakness Respiratory: no symptoms reported Cardiovascular: no symptoms reported Genitourinary: no symptoms reported Musculoskeletal: no symptoms reported Skin: no symptoms reported Psychiatric/Neurological: No Symptoms Reported Past Jlrmtve-Edgwhr-Witysy Hx Past Med/Social Hx: Reviewed Nursing Past Med/Soc Hx Patient Social History Recent Hopitalizations: No Immunizations Up To Date Tetanus Booster (TDap): Unknown Date of Influenza Vaccine: Jun 06, 2018 Seasonal Allergies Seasonal Allergies: Yes Past Medical History Surgeries: No Respiratory: No Cardiac: No Neurological: Yes (had one seizure in 10/11 when she was septic, none since or before) Reproductive Disorders: No Genitourinary: No Gastrointestinal: Yes (nausea) Chronic Constipation Musculoskeletal: No Endocrine: No HEENT: No Cancer: No Psychosocial: Yes (AUTISM,OCD,INTELLECTUAL DISORDER) Anxiety, Bipolar Integumentary: No Blood Disorders: No Family Medical History Seizure disorder twin sister Physical Exam Vital Signs Vital Signs - First Documented 08/27/19 08:34 Temp 36.3 Pulse 79 Resp 18 B/P (MAP) 96/65 (75) Pulse Ox 93 O2 Delivery Room Air Capillary Refill : Height, Weight, BMI Height: 5'6.00" Weight: 145lbs. 0.0oz. 65.006334ww; 23.4 BMI Method:Estimated General Appearance: No Apparent Distress Eyes: Bilateral Eye Normal Inspection, Bilateral Eye PERRL, Bilateral Eye EOMI Respiratory: Lungs Clear, Normal Breath Sounds, No Accessory Muscle Use Cardiovascular: Regular Rate, Rhythm, No Edema Gastrointestinal: Non Tender, Soft Extremity: Normal Capillary Refill, Normal Inspection Neurologic/Psychiatric: Alert, Normal Mood/Affect, Other (no acute changes) Procedures/Interventions Suture Size: 5-0 Progress/Results/Core Measures Suspected Sepsis SIRS Temperature: Pulse: Respiratory Rate: Laboratory Tests 08/27/19 08:55: White Blood Count 4.9 Blood Pressure / Mean: Laboratory Tests 08/27/19 08:55: Creatinine 0.94, Platelet Count 459H Results/Orders Lab Results Laboratory Tests Test 08/27/19 08:40 08/27/19 08:55 Range/Units Urine Color YELLOW Urine Clarity SL CLOUDY Urine pH 6.0 5-9 Urine Specific [place] 1.025 H 1.016-1.022 Urine Protein NEGATIVE NEGATIVE Urine Glucose (UA) NEGATIVE NEGATIVE Urine Ketones TRACE H NEGATIVE Urine Nitrite POSITIVE H NEGATIVE Urine Bilirubin NEGATIVE NEGATIVE Urine Urobilinogen 0.2 < = 1.0 MG/DL Urine Leukocyte Esterase 1+ H NEGATIVE Urine RBC (Auto) 1+ H NEGATIVE Urine RBC 0-2 /HPF Urine WBC 50-100 H /HPF Urine Squamous Epithelial Cells 0-2 /HPF Urine Crystals NONE /LPF Urine Bacteria MODERATE H /HPF Urine Casts PRESENT /LPF Urine Hyaline Casts 2-5 H /LPF Urine Mucus SMALL H /LPF Urine Culture Indicated YES White Blood Count 4.9 4.3-11.0 10^3/uL Red Blood Count 3.78 L 4.35-5.85 10^6/uL Hemoglobin 11.0 L 11.5-16.0 G/DL Hematocrit 36 35-52 % Mean Corpuscular Volume 95 80-99 FL Mean Corpuscular Hemoglobin 29 25-34 PG Mean Corpuscular Hemoglobin Concent 31 L 32-36 G/DL Red Cell Distribution Width 13.9 10.0-14.5 % Platelet Count 459 H 130-400 10^3/uL Mean Platelet Volume 10.1 7.4-10.4 FL Neutrophils (%) (Auto) 71 42-75 % Lymphocytes (%) (Auto) 18 12-44 % Monocytes (%) (Auto) 8 0-12 % Eosinophils (%) (Auto) 2 0-10 % Basophils (%) (Auto) 1 0-10 % Neutrophils # (Auto) 3.5 1.8-7.8 X 10^3 Lymphocytes # (Auto) 0.9 L 1.0-4.0 X 10^3 Monocytes # (Auto) 0.4 0.0-1.0 X 10^3 Eosinophils # (Auto) 0.1 0.0-0.3 10^3/uL Basophils # (Auto) 0.0 0.0-0.1 10^3/uL Sodium Level 138 135-145 MMOL/L Potassium Level 5.4 H 3.6-5.0 MMOL/L Chloride Level 106 98-107 MMOL/L Carbon Dioxide Level 24 21-32 MMOL/L Anion Gap 8 5-14 MMOL/L Blood Urea Nitrogen 11 7-18 MG/DL Creatinine 0.94 0.60-1.30 MG/DL Estimat Glomerular Filtration Rate 60 BUN/Creatinine Ratio 12 Glucose Level 85 70-105 MG/DL Calcium Level 9.3 8.5-10.1 MG/DL My Orders Orders - FARRIS,ADELAIDE L DO Basic Metabolic Panel (08/27/19 08:29) Cbc With Automated Diff (08/27/19 08:29) Ua Culture If Indicated (08/27/19 08:29) Orthostatic Vital Signs (Adult (08/27/19 09:08) Urine Culture (08/27/19 08:40) Ceftriaxone For Iv Use (Rocephin For I (08/27/19 09:30) Ed Iv/Invasive Line Start (08/27/19 09:16) Ns Iv 1000 Ml (Sodium Chloride 0.9%) (08/27/19 09:16) Medications Given in ED Current Medications Medications Dose Ordered Sig/Bernardino Route Start Time Stop Time Status Last Admin Dose Admin Ceftriaxone Sodium 1000 mg/ Sterile Water 10 ml @ 200 mls/hr ONCE ONCE IV 08/27/19 09:30 08/27/19 09:32 DC 08/27/19 09:40 200 MLS/HR Vital Signs/I&O 08/27/19 08:34 Temp 36.3 Pulse 79 Resp 18 B/P (MAP) 96/65 (75) Pulse Ox 93 O2 Delivery Room Air Capillary Refill : Progress Note : Time: 10:02 Progress Note Patient with a urinary tract infection and mild dehydration. Patient's blood pressure improved significantly with a liter normal saline. She was given a Rocephin IV dose here in the ER. I will discharge her with Keflex. She should have her urine rechecked in 5-7 days. Departure Impression Primary Impression: Cystitis Disposition: 01 HOME, SELF-CARE Condition: Stable Departure-Patient Inst. Referrals: EVE SOSA DO (PCP/Family) Primary Care Physician Patient Instructions: Interstitial Cystitis (DC) Scripts Cephalexin (Cephalexin) 500 Mg Tablet 500 MG PO QID, #20 TAB 0 Refills Prov: ADELAIDE FARRIS DO 08/27/19 ADELAIDE FARRIS DO Aug 27, 2019 08:29
[2019-08-27 09:00] LABS: BILIRUBIN,URINE NEGATIVE (NEGATIVE); CLARITY,URINE SL CLOUDY; COLOR,URINE YELLOW; GLUCOSE, URINE (UA) NEGATIVE (NEGATIVE); KETONES,URINE TRACE (NEGATIVE); LEUKOCYTE ESTERASE ,URINE 1+ (NEGATIVE); NITRITE,URINE POSITIVE (NEGATIVE); PROTEIN,URINE NEGATIVE (NEGATIVE)
[2019-08-27 09:05] LABS: BASOPHILS % (AUTO) 1 % (0-10); EOSINOPHILS # (AUTO) 0.1 10^3/uL (0.0-0.3); EOSINOPHILS % (AUTO) 2 % (0-10); HEMATOCRIT 36 % (35-52); LYMPHOCYTES # (AUTO) 0.9 X 10^3 (1.0-4.0); LYMPHOCYTES % (AUTO) 18 % (12-44); MEAN CORPUSCULAR HEMOGLOBIN 29 PG (25-34); MEAN CORPUSCULAR HGB CONC 31 G/DL (32-36); MEAN CORPUSCULAR VOLUME 95 FL (80-99); MEAN PLATELET VOLUME 10.1 FL (7.4-10.4); MONOCYTES # (AUTO) 0.4 X 10^3 (0.0-1.0); MONOCYTES % (AUTO) 8 % (0-12); NEUTROPHILS # (AUTO) 3.5 X 10^3 (1.8-7.8); NEUTROPHILS % (AUTO) 71 % (42-75); PLATELET COUNT 459 10^3/uL (130-400); RED CELL DISTRIBUTION WIDTH 13.9 % (10.0-14.5); WHITE BLOOD COUNT 4.9 10^3/uL (4.3-11.0)
[2019-08-27 09:10] LABS: BACTERIA,URINE MODERATE /HPF; RBC,URINE 0-2 /HPF; SQUAMOUS EPITHELIAL CELL,UR 0-2 /HPF; WBC,URINE 50-100 /HPF
[2019-08-27] MEDS ORDERED: NS IV 1000 ML 1,000 ML IV SCH (09:16)
[2019-08-27] MEDS ORDERED: cefTRIAXone FOR IV USE 1,000 MG in WATER (STERILE) FOR INJECTION 10 ML IV ONE (09:30)
[2019-08-27 09:31] LABS: CALCIUM 9.3 MG/DL (8.5-10.1); CREATININE SERUM 0.94 MG/DL (0.60-1.30); POTASSIUM 5.4 MMOL/L (3.6-5.0)
[2019-08-27] MEDS ORDERED: CEPH500T PO (10:04)
[2019-08-27 11:18] VITALS: BP 144/79
--- OUTSIDE RECORDS SUMMARY | 2019-08-31 18:04 | XMS REPORT | Clinical Summary ---
Author Author [facility] Organization [facility] Address Unknown Phone Unavailable Care Team Providers Care Head Neck Surgeon Name Role Phone Jarvis Will PCP Source Comments Some departments are not documenting in the electronic medical record. If you d o not see the information that you expected, contact Release of Information in [facility] [employer] Information Management department at [phone] for further assistan ce in locating additional records.[facility] Allergies No Known Allergies Medications End Date Status Medication Sig Dispensed Refills Start Date Active vitamins, multiple tablet Take 1 tablet 0 by mouth daily. Active docusate calcium (SURFAK) Take 240 mg 0 240 mg capsule by mouth daily. Active loratadine (CLARITIN) 10 Take 10 mg by 0 mg tablet mouth every morning. Active senna/docusate Take 1 tablet 0 (SENOKOT-S) 8.6/50 mg by mouth tablet daily. Active clonazePAM (KLONOPIN) 2 Take 2 mg by 0 mg tablet mouth at bedtime as needed. Active magnesium hydroxide (MILK Take by 0 OF MAGNESIA) 400 mg/5 mL mouth as oral suspension Needed. Active acetaminophen (TYLENOL) Take 325 mg 0 325 mg tablet by mouth every 4 hours as needed for Pain. Active levETIRAcetam (KEPPRA) Take 500 mg 0 500 mg tablet by mouth twice daily. Active ferrous sulfate (FEOSOL, Take 325 mg 0 FEROSUL) 325 mg (65 mg by mouth iron) tablet twice daily. Take on an empty stomach at least 1 hour before or 2 hours after food. Active bisacodyl (DULCOLAX) 5 mg Take 10 mg by 0 tablet mouth every Monday, Monday, and Monday as needed for Constipation. Active Problems Problem Noted Date Pseudophakia 02/12/2019 Overview: 02/12/19 Kimmy/Luis Enrique [facility] OD dense NS with leathery posterior plate, weak zonules, vitreous prolapse superiorly f rom zonular weakness and intact bag, anterior vitrectomy, CTR+ [id number] 6.0D C DE 29.94 L ast Assessment & Plan: POD#1 S/P CEIOL OD only (OS deferred) - Doing well without pain, but has not started drops yet - Pupil is round without evidence of vi treous in AC (although quick looks) -BEGIN PRED FORTE (PINK CAP) 6x/ DAY -BEGIN KETOROLAC (MARTINEZ CAP) 4x/ DAY -BEGIN TOBRADEX OINTMENT AT BEDTIME -Wear shield at bedtime (patient likely won't tolerate), no bending over or lifting >10lbs for the first week -Call if worsening vision, redness, or pain -Follow up in 1 week Social History Date Tobacco Use Types Packs/Day Years Used Never Smoker Smokeless Tobacco: Never Used Drinks/Week oz/Week Comments Alcohol Use Never Alcohol Habits Answer Date Recorded How often do you have a drink containing alcohol? Never 01/07/2019 How many drinks containing alcohol do you have on No t asked a typical day when you are drinking? How often do you have six or more drinks on one Not asked occasion? Sex Assigned at Date Recorded Not on file Industry Job Start Date Occupation Not on file Not on file Not on file Travel End Travel History Travel Start No recent travel history available. Last Filed Vital Signs Reading Time Taken Comments Vital Sign 161/96 02/12/2019 7:48 PM CDT Pt. moving leg Blood Pressure 80 02/12/2019 7:48 PM CDT Pulse 36.3 C (97.3 F) 02/12/2019 7:48 PM CDT Temperature - - Respiratory Rate 93% 02/12/2019 8:00 PM CDT Oxygen Saturation - - Inhaled Oxygen Concentration 67 kg (147 lb 11.3 oz) 02/12/2019 12:20 PM CDT Weight 170.2 cm (5' 7") 02/12/2019 12:20 PM CDT Height 23.13 02/12/2019 12:20 PM CDT Body Mass Index Plan of Treatment Health Maintenance Due Date Last Done Comments HEPATITIS C SCREENING 1954 MEDICARE ANNUAL WELLNESS 1954 VISIT DTAP/TDAP VACCINES ( - 1965 Tdap) HIV SCREENING 1969 PHYSICAL (COMPREHENSIVE) 01/11/1972 EXAM BREAST CANCER SCREENING 1994 COLORECTAL CANCER 01/11/2004 SCREENING SHINGLES RECOMBINANT 01/11/2004 VACCINE (1 of 2) OSTEOPOROSIS 2019 SCREENING/MONITORING PNEUMONIA (PCV13/PPSV23) 2019 VACCINES (1 of 2 - PCV13) INFLUENZA VACCINE 01/24/2019 Implants Device Identifier Shelf Expiration Date Model / Serial / L ot Implanted Type Area Manufactur er 09/22/2022 MR-1400 / [id number] / [id number] Ring Tension Morcher Pmma 24- Mm Right: Eye HALF-WAY Capsule Type 14 - [id number] [id number] Implanted: Qty: 1 on 02/12/2019 by Bassam Hector MD at [facility] 03/25/2023 [id number] / [id number] / N/A Lens Iol 0d Mod L Biconvex 13, 6mm Right: Eye AL CON Post [id number] Bishop 6.0-30.0 - [employer] [id number] Implanted: Qty: 1 on 02/12/2019 by Bassam Oneal MD at [facility] Results Not on filefrom Last 3 Months Insurance Type Payer Benefit Subscriber ID Effective Phone Address Plan / Dates Group Medicare MEDICARE MEDICARE xxxxxxxxxxx 1986-P PART A AND resent B AETNA MEDICAID AETNA xxxxxxxxxxx [id number] [employer] [place] Advance Directives Patient Associate Attorney Explanation Type Date Recorded Advance Directive/DPOA
--- OUTSIDE RECORDS SUMMARY | 2019-08-31 18:04 | XMS REPORT | Encounter Summary ---
Author Author [facility] Organization [facility] Address Unknown Phone Unavailable Care Team Providers Care Manager User Interface Name Role Phone Jarvis Will DO PCP Reason for Visit * Reason Comments Post-op 1 month POV; s/p PCIOL OD 0 8/20/19 Vision Change Pt states va is much better and pt is doing well. Medication Update no gtts at this time Encounter Details Care Team Description Date Type Department Bassam Oneal MD [address] [facility] [address] [place], [place] [id number] High myopia, both eyes (Primary Dx); Developmental delay disorder; Pseudophakia, right eye; Age-related nuclear cataract of left eye 03/28/2019 Office Visit [facility] [address] [place] [id number] Social History Date Tobacco Use Types Packs/Day [...] Travel Start No recent travel history available. documented as of this encounter Patient Instructions * Patient Instructions* Bassam Oneal MD - 03/28/2019 9:45 AM CDT EXAMINATION DIAGNOSIS: 1. High myopia, both eyes 2. Developmental delay disorder 3. Pseudophakia, right eye 4. Age-related nuclear cataract of left eye RESIDENT/FELLOW COMMENTS: Assessment: NA Plan: NA FACULTY COMMENTS: Assessment: MATURE CATARACT RIGHT EYE TREATED WITH PHACO LEFT EYE WAS NOT DONE DUE TO VITREOUS PRESENTATION AROUND ZONULES NO ISSUE WITH ANTERIOR VITRECTOMY STABLE EXAMINATION TODAY Plan: RETURN IN SIX MONTHS DILATE Teaching Statement I have interviewed and examined the patient and confirm the pertinent findings. I have discussed the case with the resident/fellow and agree with the findings a nd plan as documented. (electronically signed) Bassam Oneal MD Professor, Clinical Ophthalmology Cornea and External Diseases [facility] ([facility]) Department of Ophthalmology [facility] [address] [place] [address] (phone) [email or web address] (email) documented in this encounter Progress Notes * Bassam Oneal MD - 03/28/2019 9:45 AM CDT Cornea Clinic Encounter Date: 03/28/2019 Subjective: Alisa Soliman is a 64 y.o. female . Post-op (1 month POV; s/p PCIOL OD 02/12/19); Vision Change (Pt states va is muc h better and pt is doing well. ); and Medication Update (no gtts at this time) HPI PHYSICIAN DIRECTED VISIT POSTOP PHACO RIGHT EYE This Visit: Snellen vision Manifest refraction Cycloplegic refraction Brightness acuity test (BAT) Pupillary response for relative afferent pupillary defect (RAPD) IOP using TonoPen as standard or Pneumotonometer in Kpro patients Pachymetry Lissamine green or fluorescein stain of ocular surface Irene test with anesthesia Dilate Corneal topography with Clare and Galilei IOL Master with Sapp formula ([id number], [id number], Symphony, Restor) B-Scan OCT (cornea, macula, optic nerve) Optos wide field photography Kwong visual field 24-2 Betadyne rinse of fornix Medical History: Diagnosis Date Autism Bipolar depression (HCC) Intellectual disability OCD (obsessive compulsive disorder) Seizures (HCC) Surgical History: Procedure Laterality Date CATARACT REMOVAL WITH IMPLANT Right 02/12/2019 MANUAL/ MECHANICAL EXTRACAPSULAR CATARACT REMOVAL WITH INSERTION INTRAOCULAR LE NS PROSTHESIS -1 STAGE- performed by Bassam Oneal MD at [facility]/Periop DENTAL SURGERY No family history on file. Social History Socioeconomic History Marital status: Single Spouse name: Not on file Number of children: Not on file Years of education: Not on file Highest education level: Not on file Occupational History Not on file Tobacco Use Smoking status: Never Smoker Smokeless tobacco: Never Used Substance and Sexual Activity Alcohol use: Never Frequency: Never Drug use: Never Sexual activity: Not on file Other Topics Concern Not on file Social History Narrative Not on file Current Outpatient Medications: acetaminophen (TYLENOL) 325 mg tablet, Take 325 mg by mouth every 4 hours a s needed for Pain., Disp: , Rfl: bisacodyl (DULCOLAX) 5 mg tablet, Take 10 mg by mouth every Monday, , and Monday as needed for Constipation., Disp: , Rfl: clonazePAM (KLONOPIN) 2 mg tablet, Take 2 mg by mouth at bedtime as needed. , Disp: , Rfl: docusate calcium (SURFAK) 240 mg capsule, Take 240 mg by mouth daily., Disp : , Rfl: ferrous sulfate (FEOSOL, FEROSUL) 325 mg (65 mg iron) tablet, Take 325 mg b y mouth twice daily. Take on an empty stomach at least 1 hour before or 2 hours after food. , Disp: , Rfl: levETIRAcetam (KEPPRA) 500 mg tablet, Take 500 mg by mouth twice daily., Di sp: , Rfl: loratadine (CLARITIN) 10 mg tablet, Take 10 mg by mouth every morning., Dis p: , Rfl: magnesium hydroxide (MILK OF MAGNESIA) 400 mg/5 mL oral suspension, Take b y mouth as Needed., Disp: , Rfl: senna/docusate (SENOKOT-S) 8.6/50 mg tablet, Take 1 tablet by mouth daily., Disp: , Rfl: vitamins, multiple tablet, Take 1 tablet by mouth daily., Disp: , Rfl: has No Known Allergies. Review of Systems Objective Base Eye Exam Visual Acuity (Snellen - Linear) Right Left Dist sc reacts to light Tonometry (Tonopen, 9:47 AM) Right Left Pressure 11 Pupils Dark APD Right 5 0 Left 5 0 Visual Huggins Left Right Full Full Neuro/Psych Oriented x3: Yes Mood/Affect: Normal EXAMINATION DIAGNOSIS: 1. High myopia, both eyes 2. Developmental delay disorder 3. Pseudophakia, right eye 4. Age-related nuclear cataract of left eye RESIDENT/FELLOW COMMENTS: Assessment: NA Plan: NA FACULTY COMMENTS: Assessment: MATURE CATARACT RIGHT EYE TREATED WITH PHACO LEFT EYE WAS NOT DONE DUE TO VITREOUS PRESENTATION AROUND ZONULES NO ISSUE WITH ANTERIOR VITRECTOMY STABLE EXAMINATION TODAY Plan: RETURN IN SIX MONTHS DILATE Teaching Statement I have interviewed and examined the patient and confirm the pertinent findings. I have discussed the case with the resident/fellow and agree with the findings a nd plan as documented. (electronically signed) Bassam Oneal MD Professor, Clinical Ophthalmology Cornea and External Diseases [facility] ([facility]) Department of Ophthalmology [facility] [address] [place] [address] (phone) [email or web address] (email) documented in this encounter Plan of Treatment Not on filedocumented as of this encounter Visit Diagnoses Diagnosis High myopia, both eyes - Primary Myopia Developmental delay disorder Lack of normal physiological developmen t, unspecified Pseudophakia, right eye Lens replaced by other means Age-related nuclear cataract of left ey e Senile nuclear sclerosis documented in this encounter
--- OUTSIDE RECORDS SUMMARY | 2019-08-31 18:05 | XMS REPORT | Continuity of Care Document ---
Author Organization Unknown Address Unknown Phone Unavailable Allergies Active Description Code Type Severity Reaction Onset Reported/Identified Relationship to Patient Clinical Status Yes No Known Drug Allergies [id number] Drug Allergy Unknown N/A 12/27/2016 Medications There is no data. Problems Date Dx Coded Attending Type Code Diagnosis Diagnosed By 11/22/2016 Ot 719.06 BRIGITTE NT EFFUSION- L/LEG 11/22/2016 Ot 719.06 BRIGITTE NT EFFUSION- L/LEG 12/19/2016 EVE SOSA DO Ot M25.551 PAIN IN RIGHT HIP 12/23/2016 EVE SOSA DO Ot M25.551 PAIN IN RIGHT HIP 12/27/2016 Ot 719.06 BRIGITTE NT EFFUSION- L/LEG 12/27/2016 EVE SOSA DO Ot M25.551 PAIN IN RIGHT HIP 12/27/2016 Ot 719.06 BRIGITTE NT EFFUSION- L/LEG 12/27/2016 EVE SOSA DO Ot M25.551 PAIN IN RIGHT HIP 12/27/2016 FANNIE LINO, KHANG Pate Ot F31.9 BIPOLAR DISORDER, UNSPECIFIED 12/27/2016 KHANG GRECO MD Ot F41.9 ANXIETY DISORDER, UNSPECIFIED 12/27/2016 KHANG GRECO MD Ot F42.9 OBSESSIVE-COMPULSIVE DISORDER, UNSPECIFI 12/27/2016 KHANG GRECO MD Ot F84.0 AUTISTIC DISORDER 12/27/2016 FANNIE LINO, KHANG Pate Ot S01.81XA LACERATION W/O FOREIGN BODY OF OTH PART 12/27/2016 FANNIE LINO, KHANG Pate Ot S09.90XA UNSPECIFIED INJURY OF HEAD, INITIAL ENCO 12/27/2016 FANNIE LINO, KHANG Pate Ot W01.198A FALL SAME LEV FROM SLIP/TRIP W STRIKE AG 12/27/2016 FANNIE LINO, KHANG Pate Ot Y92.002 BATHRM OF [facility] 12/27/2016 FANNIE LINO, KHANG Pate Ot Z23 ENCOUNTER FOR IMMUNIZATION 12/29/2016 FANNIE LINO, KHANG Pate Ot F31.9 BIPOLAR DISORDER, UNSPECIFIED 12/29/2016 FANNIE LINO, KHANG Pate Ot F41.9 ANXIETY DISORDER, UNSPECIFIED 12/29/2016 FANNIE LINO, KHANG Pate Ot F42.9 OBSESSIVE-COMPULSIVE DISORDER, UNSPECIFI 12/29/2016 KHANG GRECO MD Ot F84.0 AUTISTIC DISORDER 12/29/2016 FANNIE LINO, KHANG Pate Ot S01.81XA LACERATION W/O FOREIGN BODY OF OTH PART 12/29/2016 FANNIE LINO, KHANG Pate Ot S09.90XA UNSPECIFIED INJURY OF HEAD, INITIAL ENCO 12/29/2016 FANNIE LINO, KHANG Pate Ot W01.198A FALL SAME LEV FROM SLIP/TRIP W STRIKE AG 12/29/2016 FANNIE LINO, KHANG Pate Ot Y92.002 BATHRM OF [facility] 12/29/2016 FANNIE LINO, KHANG Pate Ot Z23 ENCOUNTER FOR IMMUNIZATION 09/27/2017 GELLENDER DO, EVE Reyes Ot A41.9 SEPSIS, UNSPECIFIED ORGANISM 09/27/2017 GELLENDER DO, EVE Reyes Ot E87.2 ACIDOSIS 09/27/2017 GELLENDER DO, EVE Reyes Ot F31.9 BIPOLAR DISORDER, UNSPECIFIED 09/27/2017 GELLENDER DO, EVE Reyes Ot F41.9 ANXIETY DISORDER, UNSPECIFIED 09/27/2017 GELLENDER DO, EVE Reyes Ot F42.9 OBSESSIVE-COMPULSIVE DISORDER, UNSPECIFI 09/27/2017 GELLENDER DOEVE Ot F84.9 PERVASIVE DEVELOPMENTAL DISORDER, UNSPEC 09/27/2017 GELLENDER DOEVE Ot J18.9 PNEUMONIA, UNSPECIFIED ORGANISM 09/27/2017 GELLENDER DOEVE Ot J30.2 OTHER SEASONAL ALLERGIC RHINITIS 09/27/2017 GELLENDER DOEVE Ot K59.09 OTHER CONSTIPATION 09/27/2017 GELLENDER DO, EVE Reyes Ot N39.0 URINARY TRACT INFECTION, SITE NOT SPECIF 09/27/2017 GELLENDER DO, EVE Reyes Ot R09.02 HYPOXEMIA 09/27/2017 GELLENDER DO, EVE Reyes Ot R56.9 UNSPECIFIED CONVULSIONS 09/27/2017 GELLENDER DO, EVE Reyes Ot R65.20 SEVERE SEPSIS WITHOUT SEPTIC SHOCK 09/27/2017 GELLENDER DO, EVE Reyes Ot A41.9 SEPSIS, UNSPECIFIED ORGANISM 09/27/2017 GELLENDER DO, EVE Reyes Ot E87.2 ACIDOSIS 09/27/2017 GELLENDER DO, EVE Reyes Ot F31.9 BIPOLAR DISORDER, UNSPECIFIED 09/27/2017 GELLENDER DO, EVE Reyes Ot F41.9 ANXIETY DISORDER, UNSPECIFIED 09/27/2017 GELLENDER DO, EVE Reyes Ot F42.9 OBSESSIVE-COMPULSIVE DISORDER, UNSPECIFI 09/27/2017 GELLENDER DO, EVE Reyes Ot F84.9 PERVASIVE DEVELOPMENTAL DISORDER, UNSPEC 09/27/2017 GELLENDER DO, EVE Reyes Ot J18.9 PNEUMONIA, UNSPECIFIED ORGANISM 09/27/2017 GELLENDER DO, EVE Reyes Ot J30.2 OTHER SEASONAL ALLERGIC RHINITIS 09/27/2017 GELLENDER DO, EVE Reyes Ot K59.09 OTHER CONSTIPATION 09/27/2017 GELLENDER DO, EVE Reyes Ot N39.0 URINARY TRACT INFECTION, SITE NOT SPECIF 09/27/2017 GELLENDER DO, EVE Amy Ot R09.02 HYPOXEMIA 09/27/2017 GELLENDER DO, VEE Reyes Ot R56.9 UNSPECIFIED CONVULSIONS 09/27/2017 GELLENDER DO, EVE Reyes Ot R65.20 SEVERE SEPSIS WITHOUT SEPTIC SHOCK 09/27/2017 GELLENDER DO, EVE Reyes Ot A41.9 SEPSIS, UNSPECIFIED ORGANISM 09/27/2017 GELLENDER DO, EVE Reyes Ot E87.2 ACIDOSIS 09/27/2017 GELLENDER DO, EVE Reyes Ot F31.9 BIPOLAR DISORDER, UNSPECIFIED 09/27/2017 GELLENDER DO, EVE Reyes Ot F41.9 ANXIETY DISORDER, UNSPECIFIED 09/27/2017 GELLENDER DO, EVE Reyes Ot F42.9 OBSESSIVE-COMPULSIVE DISORDER, UNSPECIFI 09/27/2017 GELLENDER DO, EVE Reyes Ot F84.9 PERVASIVE DEVELOPMENTAL DISORDER, UNSPEC 09/27/2017 GELLENDER DO, EVE Reyes Ot J18.9 PNEUMONIA, UNSPECIFIED ORGANISM 09/27/2017 GELLENDER DO, EVE Reyes Ot J30.2 OTHER SEASONAL ALLERGIC RHINITIS 09/27/2017 GELLENDER DO, EVE Reyes Ot K59.09 OTHER CONSTIPATION 09/27/2017 GELLENDER DO, EVE Reyes Ot N39.0 URINARY TRACT INFECTION, SITE NOT SPECIF 09/27/2017 GELLENDER DO, EVE Reyes Ot R09.02 HYPOXEMIA 09/27/2017 GELLENDER DO, EVE Reyes Ot R56.9 UNSPECIFIED CONVULSIONS 09/27/2017 GELLENDER DO, EVE Reyes Ot R65.20 SEVERE SEPSIS WITHOUT SEPTIC SHOCK 09/27/2017 GELLENDER DO, EVE Reyes Ot A41.9 SEPSIS, UNSPECIFIED ORGANISM 09/27/2017 GELLENDER DO, EVE Reyes Ot E87.2 ACIDOSIS 09/27/2017 GELLENDER DO, EVE Reyes Ot F31.9 BIPOLAR DISORDER, UNSPECIFIED 09/27/2017 GELLENDER DO, EVE Reyes Ot F41.9 ANXIETY DISORDER, UNSPECIFIED 09/27/2017 GELLENDER DO, EVE Reyes Ot F42.9 OBSESSIVE-COMPULSIVE DISORDER, UNSPECIFI 09/27/2017 GELLENDER DO, EVE Reyes Ot F84.9 PERVASIVE DEVELOPMENTAL DISORDER, UNSPEC 09/27/2017 GELLENDER DO, EVE Reyes Ot J18.9 PNEUMONIA, UNSPECIFIED ORGANISM 09/27/2017 GELLENDER DO, EVE Reyes Ot J30.2 OTHER SEASONAL ALLERGIC RHINITIS 09/27/2017 GELLENDER DO, EVE Reyes Ot K59.09 OTHER CONSTIPATION 09/27/2017 GELLENDER DO, EVE Reyes Ot N39.0 URINARY TRACT INFECTION, SITE NOT SPECIF 09/27/2017 GELLENDER DO, EVE Reyes Ot R09.02 HYPOXEMIA 09/27/2017 GELLENDER DO, EVE Reyes Ot R56.9 UNSPECIFIED CONVULSIONS 09/27/2017 GELLENDER DO, EVE Reyes Ot R65.20 SEVERE SEPSIS WITHOUT SEPTIC SHOCK 09/29/2017 GELLENDER DO, EVE Reyes Ot A41.51 SEPSIS DUE TO ESCHERICHIA COLI [E. COLI] 09/29/2017 GELLENDER DO, EVE Reyes Ot E87.2 ACIDOSIS 09/29/2017 GELLENDER DO, EVE Reyes Ot F31.9 BIPOLAR DISORDER, UNSPECIFIED 09/29/2017 GELLENDER DO, EVE Reyes Ot F41.9 ANXIETY DISORDER, UNSPECIFIED 09/29/2017 GELLENDER DO, EVE Reyes Ot F42.9 OBSESSIVE-COMPULSIVE DISORDER, UNSPECIFI 09/29/2017 GELLENDER DO, EVE Reyes Ot F72 SEVERE INTELLECTUAL DISABILITIES 09/29/2017 GELLENDER DO, EEV Amy Ot F84.9 PERVASIVE DEVELOPMENTAL DISORDER, UNSPEC 09/29/2017 GELLENDER DO, EVE Amy Ot G40.909 EPILEPSY, UNSP, NOT INTRACTABLE, WITHOUT 09/29/2017 GELLENDER DO, EVE Reyes Ot J18.9 PNEUMONIA, UNSPECIFIED ORGANISM 09/29/2017 GELLENDER DO, EVE Reyes Ot J30.2 OTHER SEASONAL ALLERGIC RHINITIS 09/29/2017 GELLENDER DO, EVE Reyes Ot J81.0 ACUTE PULMONARY EDEMA 09/29/2017 GELLENDER DO, EVE Reyes Ot J98.11 ATELECTASIS 09/29/2017 GELLENDER DO, EVE Reyes Ot K59.09 OTHER CONSTIPATION 09/29/2017 GELLENDER DO, EVE Reyes Ot N39.0 URINARY TRACT INFECTION, SITE NOT SPECIF 09/29/2017 GELLENDER DO, EVE Reyes Ot R09.02 HYPOXEMIA 09/29/2017 GELLENDER DO, EVE Reyes Ot R65.20 SEVERE SEPSIS WITHOUT SEPTIC SHOCK 10/03/2017 GELLENDER DO, EVE Reyes Ot I51.7 CARDIOMEGALY 10/03/2017 GELLENDER DO, EVE Reyes Ot J90 PLEURAL EFFUSION, NOT ELSEWHERE CLASSIFI 10/03/2017 GELLENDER DO, EVE Reyes Ot K44.9 DIAPHRAGMATIC HERNIA WITHOUT OBSTRUCTION 10/04/2017 GELLENDER DO, EVE Reyes Ot M25.551 PAIN IN RIGHT HIP 10/04/2017 GELLENDER DO, EVE Reyes Ot I51.7 CARDIOMEGALY 10/04/2017 GELLENDER DO, EVE Reyes Ot J90 PLEURAL EFFUSION, NOT ELSEWHERE CLASSIFI 10/04/2017 GELLENDER DO, EVE Reyes Ot K44.9 DIAPHRAGMATIC HERNIA WITHOUT OBSTRUCTION 10/04/2017 GELLENDER DO, EVE Reyes Ot M25.551 PAIN IN RIGHT HIP 10/04/2017 GELLENDER DO, EVE Reyes Ot I51.7 CARDIOMEGALY 10/04/2017 GELLENDER DO, EVE Reyes Ot J90 PLEURAL EFFUSION, NOT ELSEWHERE CLASSIFI 10/04/2017 GELLENDER DO, EVE Reyes Ot K44.9 DIAPHRAGMATIC HERNIA WITHOUT OBSTRUCTION 10/05/2017 GELLENDER DO, EVE Reyes Ot I50.9 HEART FAILURE, UNSPECIFIED 10/05/2017 GELLENDER DO, EVE Reyes Ot J18.9 PNEUMONIA, UNSPECIFIED ORGANISM 10/05/2017 GELLENDER DO, EVE Reyes Ot I50.9 HEART FAILURE, UNSPECIFIED 10/05/2017 GELLENDER DO, EVE Reyes Ot J18.9 PNEUMONIA, UNSPECIFIED ORGANISM 10/12/2017 GELLENDER DO, EVE Reyes Ot J18.9 PNEUMONIA, UNSPECIFIED ORGANISM 10/20/2017 GELLENDER DO, EVE Reyes Ot J18.9 PNEUMONIA, UNSPECIFIED ORGANISM 10/24/2017 GELLENDER DO, EVE Reyes Ot I51.7 CARDIOMEGALY 10/24/2017 GELLENDER DO, EVE Reyes Ot J90 PLEURAL EFFUSION, NOT ELSEWHERE CLASSIFI 10/24/2017 GELLENDER DO, EVE Reyes Ot K44.9 DIAPHRAGMATIC HERNIA WITHOUT OBSTRUCTION 10/24/2017 GELLENDER DO, EVE Reyes Ot I50.9 HEART FAILURE, UNSPECIFIED 10/24/2017 GELLENDER DO, EVE Reyes Ot J18.9 PNEUMONIA, UNSPECIFIED ORGANISM 10/27/2017 GELLENDER DO, EVE Reyes Ot I51.7 CARDIOMEGALY 10/27/2017 GELLENDER DO, EVE Reyes Ot J90 PLEURAL EFFUSION, NOT ELSEWHERE CLASSIFI 10/27/2017 GELLENDER DO, EVE Reyes Ot K44.9 DIAPHRAGMATIC HERNIA WITHOUT OBSTRUCTION 10/31/2017 GELLENDER DO, EVE Reyes Ot I50.9 HEART FAILURE, UNSPECIFIED 10/31/2017 GELLENDER DO, EVE Reyes Ot J18.9 PNEUMONIA, UNSPECIFIED ORGANISM 10/31/2017 GELLENDER DO, EVE Reyes Ot J18.9 PNEUMONIA, UNSPECIFIED ORGANISM 11/03/2017 GELLENDER DO, EVE Reyes Ot J18.9 PNEUMONIA, UNSPECIFIED ORGANISM 11/08/2017 GELLENDER DO, EVE Reyes Ot J18.9 PNEUMONIA, UNSPECIFIED ORGANISM 11/14/2017 GELLENDER DO, EVE Reyes Ot J18.9 PNEUMONIA, UNSPECIFIED ORGANISM 03/20/2018 IRASEMA PULLIAM DDS Ot Z01.8 18 ENCOUNTER FOR OTHER PREPROCEDURAL EXAMIN 03/22/2018 GELLENDER DO, EVE Reyes Ot M25.551 PAIN IN RIGHT HIP 03/22/2018 GELLENDER DO, EVE Reyes Ot I51.7 CARDIOMEGALY 03/22/2018 GELLENDER DO, EVE Reyes Ot J90 PLEURAL EFFUSION, NOT ELSEWHERE CLASSIFI 03/22/2018 GELLENDER DO, EVE Reyes Ot K44.9 DIAPHRAGMATIC HERNIA WITHOUT OBSTRUCTION 03/22/2018 GELLENDER DO, EVE Reyes Ot I50.9 HEART FAILURE, UNSPECIFIED 03/22/2018 GELLENDER DO, EVE Reyes Ot J18.9 PNEUMONIA, UNSPECIFIED ORGANISM 03/22/2018 GELLENDER DO, EVE Reyes Ot J18.9 PNEUMONIA, UNSPECIFIED ORGANISM 03/22/2018 GELLENDER DO, EVE Reyes Ot J18.9 PNEUMONIA, UNSPECIFIED ORGANISM 03/26/2018 LOWE DDS, IRASEMA Ot Z01.8 18 ENCOUNTER FOR OTHER PREPROCEDURAL EXAMIN 03/26/2018 LOWE DDS, IRASEMA Ot F03.9 0 UNSPECIFIED DEMENTIA WITHOUT BEHAVIORAL 03/26/2018 LOWE DDS, IRASEMA Ot F31.9 BIPOLAR DISORDER, UNSPECIFIED 03/26/2018 LOWE DDS, IRASEMA Ot F41.9 ANXIETY DISORDER, UNSPECIFIED 03/26/2018 LOWE DDS, IRASEMA Ot F42.9 OBSESSIVE-COMPULSIVE DISORDER, UNSPECIFI 03/26/2018 LOWE DDS, IRASEMA Ot F84.0 AUTISTIC DISORDER 03/26/2018 LOWE DDS, IRASEMA Ot G40.9 09 EPILEPSY, UNSP, NOT INTRACTABLE, WITHOUT 03/26/2018 LOWE DDS, IRASEMA Ot K02.9 DENTAL CARIES, UNSPECIFIED 03/26/2018 LOWE DDS, IRASEMA Ot K59.0 9 OTHER CONSTIPATION 03/26/2018 LOWE DDS, IRASEMA Ot Z11.2 ENCOUNTER FOR SCREENING FOR OTHER BACTER 03/26/2018 LOWE DDS, IRASEMA Ot Z79.8 99 OTHER GROUP HOME (CURRENT) DRUG THERAPY 03/28/2018 LOWE DDS, IRASEMA Ot F03.9 0 UNSPECIFIED DEMENTIA WITHOUT BEHAVIORAL 03/28/2018 LOWE DDS, IRASEMA Ot F31.9 BIPOLAR DISORDER, UNSPECIFIED 03/28/2018 LOWE DDS, IRASEMA Ot F41.9 ANXIETY DISORDER, UNSPECIFIED 03/28/2018 LOWE DDS, IRASEMA Ot F42.9 OBSESSIVE-COMPULSIVE DISORDER, UNSPECIFI 03/28/2018 LOWE DDS, IRASEMA Ot F84.0 AUTISTIC DISORDER 03/28/2018 LOWE DDS, IRASEMA Ot G40.9 09 EPILEPSY, UNSP, NOT INTRACTABLE, WITHOUT 03/28/2018 LOWE DDS, IRASEMA Ot K02.9 DENTAL CARIES, UNSPECIFIED 03/28/2018 LOWE DDS, IRASEMA Ot K59.0 9 OTHER CONSTIPATION 03/28/2018 LOWE DDS, IRASEMA Ot Z11.2 ENCOUNTER FOR SCREENING FOR OTHER BACTER 03/28/2018 LOWE DDS, IRASEMA Ot Z79.8 99 OTHER GROUP HOME (CURRENT) DRUG THERAPY 09/04/2018 GELLENDER DO, EVE Reyes Ot M25.551 PAIN IN RIGHT HIP 09/04/2018 GELLENDER DO, EVE Amy Ot I51.7 CARDIOMEGALY 09/04/2018 GELLENDER DO, EVE Amy Ot J90 PLEURAL EFFUSION, NOT ELSEWHERE CLASSIFI 09/04/2018 GELLENDER DO, EVE Amy Ot K44.9 DIAPHRAGMATIC HERNIA WITHOUT OBSTRUCTION 09/04/2018 GELLENDER DO, EVE Reyes Ot I50.9 HEART FAILURE, UNSPECIFIED 09/04/2018 GELLENDER DO, EVE Reyes Ot J18.9 PNEUMONIA, UNSPECIFIED ORGANISM 09/04/2018 GELLENDER DO, EVE Reyes Ot J18.9 PNEUMONIA, UNSPECIFIED ORGANISM 09/04/2018 GELLENDER DO, EVE Reyes Ot J18.9 PNEUMONIA, UNSPECIFIED ORGANISM 09/04/2018 GELLENDER DO, EVE Reyes Ot M25.551 PAIN IN RIGHT HIP 09/04/2018 GELLENDER DO, EVE Amy Ot I51.7 CARDIOMEGALY 09/04/2018 GELLENDER DO, EVE Amy Ot J90 PLEURAL EFFUSION, NOT ELSEWHERE CLASSIFI 09/04/2018 GELLENDER DO, EVE Reyes Ot K44.9 DIAPHRAGMATIC HERNIA WITHOUT OBSTRUCTION 09/04/2018 GELLENDER DO, EVE Reyes Ot I50.9 HEART FAILURE, UNSPECIFIED 09/04/2018 GELLENDER DO, EVE Reyes Ot J18.9 PNEUMONIA, UNSPECIFIED ORGANISM 09/04/2018 GELLENDER DO, EVE Reyes Ot J18.9 PNEUMONIA, UNSPECIFIED ORGANISM 09/04/2018 GELLENDER DO, EVE Reyes Ot J18.9 PNEUMONIA, UNSPECIFIED ORGANISM 09/04/2018 JULIA LOPEZ Ot F31.9 BIPOLAR DISORDER, UNSPECIFIED 09/04/2018 BERNJULIA MCADAMS Ot F41.9 ANXIETY DISORDER, UNSPECIFIED 09/04/2018 BERNJULIA MCADAMS Ot F42.9 OBSESSIVE-COMPULSIVE DISORDER, UNSPECIFI 09/04/2018 BERNOTJULIA Ot F84.0 AUTISTIC DISORDER 09/04/2018 JESSICA JULIA Ot R56.9 UNSPECIFIED CONVULSIONS 09/04/2018 GELLENDER DO, EVE Amy Ot M25.551 PAIN IN RIGHT HIP 09/04/2018 GELLENDER DO, EVE Reyes Ot I51.7 CARDIOMEGALY 09/04/2018 GELLENDER DO, EVE Reyes Ot J90 PLEURAL EFFUSION, NOT ELSEWHERE CLASSIFI 09/04/2018 GELLENDER DO, EVE Reyes Ot K44.9 DIAPHRAGMATIC HERNIA WITHOUT OBSTRUCTION 09/04/2018 GELLENDER DO, EVE Reyes Ot I50.9 HEART FAILURE, UNSPECIFIED 09/04/2018 GELLENDER DO, EVE Reyes Ot J18.9 PNEUMONIA, UNSPECIFIED ORGANISM 09/04/2018 GELLENDER DO, EVE Reyes Ot J18.9 PNEUMONIA, UNSPECIFIED ORGANISM 09/04/2018 GELLENDER DO, EVE Reyes Ot J18.9 PNEUMONIA, UNSPECIFIED ORGANISM 09/05/2018 GELLENDER DO, EVE Reyes Ot D63.8 ANEMIA IN OTHER CHRONIC DISEASES CLASSIF 09/05/2018 GELLENDER DO, EVE Reyes Ot F31.9 BIPOLAR DISORDER, UNSPECIFIED 09/05/2018 GELLENDER DO, EVE Reyes Ot F41.9 ANXIETY DISORDER, UNSPECIFIED 09/05/2018 GELLENDER DO, EVE Reyes Ot F42.9 OBSESSIVE-COMPULSIVE DISORDER, UNSPECIFI 09/05/2018 GELLENDER DO, EVE Reyes Ot F72 SEVERE INTELLECTUAL DISABILITIES 09/05/2018 GELLENDER DO, EVE Reyes Ot F84.0 AUTISTIC DISORDER 09/05/2018 GELLENDER DO, EVE Reyes Ot G40.909 EPILEPSY, UNSP, NOT INTRACTABLE, WITHOUT 09/05/2018 GELLENDER DO, EVE Reyes Ot K59.09 OTHER CONSTIPATION 09/05/2018 GELLENDER DO, EVE Reyes Ot R05 COUGH 09/05/2018 GELLENDER DO, EVE Reyes Ot Z79.899 OTHER RESIDENT SERVICE COORDINATOR (CURRENT) DRUG THERAPY 09/05/2018 GELLENDER DO, EVE Reyes Ot D63.8 ANEMIA IN OTHER CHRONIC DISEASES CLASSIF 09/05/2018 GELLENDER DO, EVE Reyes Ot F31.9 BIPOLAR DISORDER, UNSPECIFIED 09/05/2018 GELLENDER DO, EVE Reyes Ot F41.9 ANXIETY DISORDER, UNSPECIFIED 09/05/2018 GELLENDER DO, EVE Reyes Ot F42.9 OBSESSIVE-COMPULSIVE DISORDER, UNSPECIFI 09/05/2018 GELLENDER DO, EVE Reyes Ot F72 SEVERE INTELLECTUAL DISABILITIES 09/05/2018 GELLENDER DO, EVE Reyes Ot F84.0 AUTISTIC DISORDER 09/05/2018 GELLENDER DO, EVE Reyes Ot G40.909 EPILEPSY, UNSP, NOT INTRACTABLE, WITHOUT 09/05/2018 GELLENDER DO, EVE Reyes Ot K59.09 OTHER CONSTIPATION 09/05/2018 GELLENDER DO, EVE Reyes Ot R05 COUGH 09/05/2018 GELLENDER DO, EVE Reyes Ot Z79.899 OTHER RESIDENT SERVICE COORDINATOR (CURRENT) DRUG THERAPY 09/06/2018 JULIA LOPEZ Ot F31.9 BIPOLAR DISORDER, UNSPECIFIED 09/06/2018 BERNPEMA JULIA Ot F41.9 ANXIETY DISORDER, UNSPECIFIED 09/06/2018 BERNPEMA JULIA Ot F42.9 OBSESSIVE-COMPULSIVE DISORDER, UNSPECIFI 09/06/2018 BERNOT, JULIA Ot F84.0 AUTISTIC DISORDER 09/06/2018 BERNOT, JULIA Ot R56.9 UNSPECIFIED CONVULSIONS 09/10/2018 BERNOT JULIA Ot F31.9 BIPOLAR DISORDER, UNSPECIFIED 09/10/2018 BERNOT, JULIA Ot F41.9 ANXIETY DISORDER, UNSPECIFIED 09/10/2018 BERNOT, JULIA Ot F42.9 OBSESSIVE-COMPULSIVE DISORDER, UNSPECIFI 09/10/2018 BERNOT, JULIA Ot F84.0 AUTISTIC DISORDER 09/10/2018 BERNPEMA JULIA Ot R56.9 UNSPECIFIED CONVULSIONS 09/20/2018 GELLENDER DO, EVE Reyes Ot S79.912A UNSPECIFIED INJURY OF LEFT HIP, INITIAL 10/11/2018 GELLENDER DO, EVE Reyes Ot S79.912A UNSPECIFIED INJURY OF LEFT HIP, INITIAL 07/15/2019 GELLENDER DO, EVE Reyes Ot K44.9 DIAPHRAGMATIC HERNIA WITHOUT OBSTRUCTION 07/15/2019 GELLENDER DO, EVE Reyes Ot R05 COUGH 07/15/2019 GELLENDER DO, EVE Reyes Ot R06.02 SHORTNESS OF BREATH 07/15/2019 GELLENDER DO, EVE Reyes Ot K44.9 DIAPHRAGMATIC HERNIA WITHOUT OBSTRUCTION 07/15/2019 GELLENDER DO, EVE Reyes Ot R05 COUGH 07/15/2019 GELLENDER DO, EVE Reyes Ot R06.02 SHORTNESS OF BREATH 07/26/2019 GELLENDER DO, EVE Reyes Ot K44.9 DIAPHRAGMATIC HERNIA WITHOUT OBSTRUCTION 07/26/2019 GELLENDER DO, EVE Reyes Ot R05 COUGH 07/26/2019 GELLENDER DO, EVE Reyes Ot R06.02 SHORTNESS OF BREATH 08/30/2019 FARRIS DO, ADELAIDE L Ot F31.9 BIPOLAR DISORDER, UNSPECIFIED 08/30/2019 FARRIS DO, ADELAIDE L Ot F41.9 ANXIETY DISORDER, UNSPECIFIED 08/30/2019 FARRIS DO, ADELAIDE L Ot N30.9 0 CYSTITIS, UNSPECIFIED WITHOUT HEMATURIA Procedures There is no data. Results Test Result Range Complete blood count (CBC) with automate d white blood cell (WBC) differential - 09/25/17 19:28 Blood leukocytes automated count (number/volume) 9.3 10*3/uL 4.3-11.0 Blood erythrocytes automated count (number/volume) 3.07 10*6/uL 4.35-5.85 Venous blood hemoglobin measurement (mass/volume) 5.8 g/dL 11.5-16.0 Blood hematocrit (volume fraction) 21 % 35-52 Automated erythrocyte mean corpuscular volume 67 [ foz_us] 80-99 Automated erythrocyte mean corpuscular h emoglobin (mass per erythrocyte) 19 pg 25-34 Automated erythrocyte mean corpuscular h emoglobin concentration measurement (mass/volume) 28 g/dL 32-36 Automated erythrocyte distribution width ratio 18. 7 % 10.0- 14.5 Automated blood platelet count (count/volume) 563 10*3/uL 130-400 Automated blood platelet mean volume measurement 9.6 [foz_us] 7.4-10.4 Automated blood neutrophils/100 leukocytes 76 % 42-75 Automated blood lymphocytes/100 leukocytes 14 % 12-44 Blood monocytes/100 leukocytes 9 % 0-12 Automated blood eosinophils/100 leukocytes 1 % 0-10 Automated blood basophils/100 leukocytes 0 % 0-10 Blood neutrophils automated count (number/volume) 7.1 10*3 1.8-7.8 Blood lymphocytes automated count (number/volume) 1.3 10*3 1.0-4.0 Blood monocytes automated count (number/volume) 0. 8 10*3 0.0-1.0 Automated eosinophil count 0.1 10*3/uL 0 .0-0.3 Automated blood basophil count (count/volume) 0.0 10*3/uL 0.0-0.1 Comprehensive metabolic panel - 09/25/17 19:28 Serum or plasma sodium measurement (moles/volume) 133 mmol/L 135-145 Serum or plasma potassium measurement (moles/volume) 3.9 mmol/L 3.6-5.0 Serum or plasma chloride measurement (moles/volume) 103 mmol/L 98-107 Carbon dioxide 17 mmol/L 21-32 Serum or plasma anion gap determination (moles/volume) 13 mmol/L 5-14 Serum or plasma urea nitrogen measurement (mass/volume ) 13 mg/dL 7-18 Serum or plasma creatinine measurement (mass/volume) 1.04 mg/dL 0.60-1.30 Serum or plasma urea nitrogen/creatinine mass ratio 13 NRG Serum or plasma creatinine measurement w ith calculation of estimated glomerular filtration rate 54 NRG Serum or plasma glucose measurement (mass/volume) 174 mg/dL 70-105 Serum or plasma calcium measurement (mass/volume) 8.5 mg/dL 8.5-10.1 Serum or plasma total bilirubin measurement (mass/volu me) 0.1 mg/dL 0.1-1.0 Serum or plasma alkaline phosphatase kranthi surement (enzymatic activity/volume) 66 U/L 40-136 Serum or plasma aspartate aminotransfera se measurement (enzymatic activity/volume) 17 U/L 5-34 Serum or plasma alanine aminotransferase measurement (enzymatic activity/volume) 11 U/L 0-55 Serum or plasma protein measurement (mass/volume) 7.3 g/dL 6.4-8.2 Serum or plasma albumin measurement (mass/volume) 3.7 g/dL 3.2-4.5 Serum or plasma troponin i.cardiac measu rement (mass/volume) - 09/25/17 19:28 Serum or plasma troponin i.cardiac measurement (mass/v olume) < ng/mL <0.30 Arterial blood gas measurement - 8 19:29 Blood pCO2 39 mm[Hg] 35-45 Blood pO2 154 mm[Hg] 79-93 Arterial blood bicarbonate measurement (moles/volume) 18 mmol/L 23-27 Arterial blood base excess by calculation -7.9 mmo l/L -2.5-2.5 Arterial blood oxygen saturation measurement 100 % 94-100 * Inhaled oxygen flow rate 15 L NRG Arterial blood pH measurement with patient temperature correction 7.28 7.37-7.43 Arterial blood carbon dioxide, total measurement (mole s/volume) 18.9 mmol/L 21.0-31.0 Body site LEFT RADIAL NRG Assessment of wrist artery patency prior to arterial p uncture POSITIVE NRG Setting of ventilation mode NO NR G Measurement of body temperature 98.0 NRG Blood lactic acid measurement (moles/vol ume) - 09/25/17 19:35 Blood lactic acid measurement (moles/volume) 10.66 mmol/L 0.50-2.00 Bacterial blood culture - 09/25/17 19:35 Bacterial blood culture NG NRG Complete urinalysis with reflex to cultu re - 09/25/17 19:41 Urine color determination YELLOW NRG Urine clarity determination CLEAR NR G Urine pH measurement by test strip 5 5-9 Specific gravity of urine by test strip 1.030 1.016-1.022 Urine protein assay by test strip, semi-quantitative 1+ NEGATIVE Urine glucose detection by automated test strip NE GATIVE NEGATIVE Erythrocytes detection in urine sediment by light micr oscopy NEGATIVE NEGATIVE Urine ketones detection by automated test strip 1+ NEGATIVE Urine nitrite detection by test strip NEGATIVE NEGATIVE Urine total bilirubin detection by test strip NEGA TIVE NEGATIVE Urine urobilinogen measurement by automated test strip (mass/volume) NORMAL NORMAL Urine leukocyte esterase detection by dipstick 3+ NEGATIVE Automated urine sediment erythrocyte cou nt by microscopy (number/high power field) NONE NRG Automated urine sediment leukocyte count by microscopy (number/high power field) [HPF] NRG Bacteria detection in urine sediment by light microsco py MODERATE NRG Crystals detection in urine sediment by light microsco py NONE NRG Casts detection in urine sediment by light microscopy NONE NRG Mucus detection in urine sediment by light microscopy SMALL NRG Complete urinalysis with reflex to culture YES NRG Bacterial urine culture - 09/25/17 19:41 Bacterial urine culture [id number] NRG COLONY COUNT 10,000/ML - 100,000/ML NRG FTX;REPORTABLE SENSITIVITY REPORTED 09/26 16:20 NRG Bacterial susceptibility panel - 8 19:41 Gentamicin susceptibility test by minimum inhibitory c oncentration <= NRG Trimethoprim/sulfamethoxazole susceptibi lity test by minimum inhibitoryconcentration S NRG Ampicillin susceptibility test by minimum inhibitory c oncentration <= NRG Tobramycin susceptibility test by minimum inhibitory c oncentration <= NRG Cefazolin susceptibility test by minimum inhibitory co ncentration <= NRG Ceftriaxone susceptibility test by minimum inhibitory concentration <= NRG Ampicillin/sulbactam susceptibility test by minimum inhibitory concentration <= NRG Piperacillin/tazobactam susceptibility t est by minimum inhibitory concentration S NRG Ciprofloxacin susceptibility test by minimum inhibitor y concentration <= NRG Meropenem susceptibility test by minimum inhibitory co ncentration <= NRG Nitrofurantoin susceptibility test by mi nimum inhibitory concentration <= NRG Aztreonam susceptibility test by minimum inhibitory co ncentration <= NRG Extended spectrum beta lactamase (ESBL) producing bacteria susceptibility test by minimum inhibitory concentration - NRG RED CELLS LEUKO REDUCED AS1 - 09/25/17 2 0:10 RED CELLS LEUKO REDUCED AS1 T RANSFUSED 09/25/174 NRG Blood type T Indirect antibody screen pa allyssa - 09/25/17 20:10 ABO+Rh group OP NRG Transfusion band number [id number] NRG Blood group antibody screen NEGATIVE NR G Bacterial blood culture - 09/25/17 20:10 Bacterial blood culture NG NRG Serum or plasma lactate measurement (mol es/volume) - 09/25/17 21:45 Serum or plasma lactate measurement (moles/volume) 1.75 mmol/L 0.50-2.00 Complete blood count (CBC) with automate d white blood cell (WBC) differential - 09/26/17 03:20 Blood leukocytes automated count (number/volume) 11.7 10*3/uL 4.3-11.0 Blood erythrocytes automated count (number/volume) 3.84 10*6/uL 4.35-5.85 Venous blood hemoglobin measurement (mass/volume) 8.4 g/dL 11.5-16.0 Blood hematocrit (volume fraction) 27 % 35-52 Automated erythrocyte mean corpuscular volume 71 [ foz_us] 80-99 Automated erythrocyte mean corpuscular h emoglobin (mass per erythrocyte) 22 pg 25-34 Automated erythrocyte mean corpuscular h emoglobin concentration measurement (mass/volume) 31 g/dL 32-36 Automated erythrocyte distribution width ratio 21. 2 % 10.0- 14.5 Automated blood platelet count (count/volume) 431 10*3/uL 130-400 Automated blood platelet mean volume measurement 10.0 [foz_us] 7.4-10.4 Automated blood neutrophils/100 leukocytes 85 % 42-75 Automated blood lymphocytes/100 leukocytes 9 % 12-44 Blood monocytes/100 leukocytes 6 % 0-12 Automated blood eosinophils/100 leukocytes 0 % 0-10 Automated blood basophils/100 leukocytes 0 % 0-10 Blood neutrophils automated count (number/volume) 10.0 10*3 1.8-7.8 Blood lymphocytes automated count (number/volume) 1.0 10*3 1.0-4.0 Blood monocytes automated count (number/volume) 0. 7 10*3 0.0-1.0 Automated eosinophil count 0.0 10*3/uL 0 .0-0.3 Automated blood basophil count (count/volume) 0.0 10*3/uL 0.0-0.1 Comprehensive metabolic panel - 09/26/17 03:20 Serum or plasma sodium measurement (moles/volume) 136 mmol/L 135-145 Serum or plasma potassium measurement (moles/volume) 4.1 mmol/L 3.6-5.0 Serum or plasma chloride measurement (moles/volume) 109 mmol/L 98-107 Carbon dioxide 19 mmol/L 21-32 Serum or plasma anion gap determination (moles/volume) 8 mmol/L 5-14 Serum or plasma urea nitrogen measurement (mass/volume ) 12 mg/dL 7-18 Serum or plasma creatinine measurement (mass/volume) 0.77 mg/dL 0.60-1.30 Serum or plasma urea nitrogen/creatinine mass ratio 16 NRG Serum or plasma creatinine measurement w ith calculation of estimated glomerular filtration rate > NRG Serum or plasma glucose measurement (mass/volume) 118 mg/dL 70-105 Serum or plasma calcium measurement (mass/volume) 8.3 mg/dL 8.5-10.1 Serum or plasma total bilirubin measurement (mass/volu me) 1.0 mg/dL 0.1-1.0 Serum or plasma alkaline phosphatase kranthi surement (enzymatic activity/volume) 65 U/L 40-136 Serum or plasma aspartate aminotransfera se measurement (enzymatic activity/volume) 24 U/L 5-34 Serum or plasma alanine aminotransferase measurement (enzymatic activity/volume) 13 U/L 0-55 Serum or plasma protein measurement (mass/volume) 6.8 g/dL 6.4-8.2 Serum or plasma albumin measurement (mass/volume) 3.4 g/dL 3.2-4.5 Serum or plasma phosphate measurement (m ass/volume) - 09/26/17 03:20 Serum or plasma phosphate measurement (mass/volume) 3.1 mg/dL 2.3-4.7 Magnesium - 09/26/17 03:20 Magnesium 2.2 mg/dL 1.8-2.4 Methicillin resistant Staphylococcus aur eus (MRSA) screening culture - 09/26/17 10:10 Methicillin resistant Staphylococcus aureus (MRSA) scr eening culture NEG NRG Serum or plasma lithium measurement (mol es/volume) - 09/26/17 14:51 BNP level 1302.1 pg/mL <100.0 Complete blood count (CBC) with automate d white blood cell (WBC) differential - 09/27/17 08:38 Blood leukocytes automated count (number/volume) 8.1 10*3/uL 4.3-11.0 Blood erythrocytes automated count (number/volume) 4.11 10*6/uL 4.35-5.85 Venous blood hemoglobin measurement (mass/volume) 8.9 g/dL 11.5-16.0 Blood hematocrit (volume fraction) 29 % 35-52 Automated erythrocyte mean corpuscular volume 72 [ foz_us] 80-99 Automated erythrocyte mean corpuscular h emoglobin (mass per erythrocyte) 22 pg 25-34 Automated erythrocyte mean corpuscular h emoglobin concentration measurement (mass/volume) 30 g/dL 32-36 Automated erythrocyte distribution width ratio 21. 5 % 10.0- 14.5 Automated blood platelet count (count/volume) 431 10*3/uL 130-400 Automated blood platelet mean volume measurement 9.8 [foz_us] 7.4-10.4 Automated blood neutrophils/100 leukocytes 69 % 42-75 Automated blood lymphocytes/100 leukocytes 20 % 12-44 Blood monocytes/100 leukocytes 9 % 0-12 Automated blood eosinophils/100 leukocytes 2 % 0-10 Automated blood basophils/100 leukocytes 1 % 0-10 Blood neutrophils automated count (number/volume) 5.5 10*3 1.8-7.8 Blood lymphocytes automated count (number/volume) 1.6 10*3 1.0-4.0 Blood monocytes automated count (number/volume) 0. 8 10*3 0.0-1.0 Automated eosinophil count 0.1 10*3/uL 0 .0-0.3 Automated blood basophil count (count/volume) 0.1 10*3/uL 0.0-0.1 Comprehensive metabolic panel - 09/27/17 08:38 Serum or plasma sodium measurement (moles/volume) 147 mmol/L 135-145 Serum or plasma potassium measurement (moles/volume) 3.2 mmol/L 3.6-5.0 Serum or plasma chloride measurement (moles/volume) 111 mmol/L 98-107 Carbon dioxide 29 mmol/L 21-32 Serum or plasma anion gap determination (moles/volume) 7 mmol/L 5-14 Serum or plasma urea nitrogen measurement (mass/volume ) 18 mg/dL 7-18 Serum or plasma creatinine measurement (mass/volume) 1.09 mg/dL 0.60-1.30 Serum or plasma urea nitrogen/creatinine mass ratio 17 NRG Serum or plasma creatinine measurement w ith calculation of estimated glomerular filtration rate 51 NRG Serum or plasma glucose measurement (mass/volume) 66 mg/dL 70-105 Serum or plasma calcium measurement (mass/volume) 9.3 mg/dL 8.5-10.1 Serum or plasma total bilirubin measurement (mass/volu me) 0.5 mg/dL 0.1-1.0 Serum or plasma alkaline phosphatase kranthi surement (enzymatic activity/volume) 63 U/L 40-136 Serum or plasma aspartate aminotransfera se measurement (enzymatic activity/volume) 48 U/L 5-34 Serum or plasma alanine aminotransferase measurement (enzymatic activity/volume) 24 U/L 0-55 Serum or plasma protein measurement (mass/volume) 7.9 g/dL 6.4-8.2 Serum or plasma albumin measurement (mass/volume) 3.9 g/dL 3.2-4.5 Serum or plasma phosphate measurement (m ass/volume) - 09/27/17 08:38 Serum or plasma phosphate measurement (mass/volume) 3.0 mg/dL 2.3-4.7 Magnesium - 09/27/17 08:38 Magnesium 2.0 mg/dL 1.8-2.4 Serum or plasma lithium measurement (mol es/volume) - 09/27/17 08:38 BNP level 1409.9 pg/mL <100.0 Comprehensive metabolic panel - 09/28/17 05:38 Serum or plasma sodium measurement (moles/volume) 142 mmol/L 135-145 Serum or plasma potassium measurement (moles/volume) 3.5 mmol/L 3.6-5.0 Serum or plasma chloride measurement (moles/volume) 107 mmol/L 98-107 Carbon dioxide 23 mmol/L 21-32 Serum or plasma anion gap determination (moles/volume) 12 mmol/L 5-14 Serum or plasma urea nitrogen measurement (mass/volume ) 27 mg/dL 7-18 Serum or plasma creatinine measurement (mass/volume) 0.85 mg/dL 0.60-1.30 Serum or plasma urea nitrogen/creatinine mass ratio 32 NRG Serum or plasma creatinine measurement w ith calculation of estimated glomerular filtration rate > NRG Serum or plasma glucose measurement (mass/volume) 98 mg/dL 70-105 Serum or plasma calcium measurement (mass/volume) 9.1 mg/dL 8.5-10.1 Serum or plasma total bilirubin measurement (mass/volu me) 0.5 mg/dL 0.1-1.0 Serum or plasma alkaline phosphatase kranthi surement (enzymatic activity/volume) 62 U/L 40-136 Serum or plasma aspartate aminotransfera se measurement (enzymatic activity/volume) 74 U/L 5-34 Serum or plasma alanine aminotransferase measurement (enzymatic activity/volume) 35 U/L 0-55 Serum or plasma protein measurement (mass/volume) 7.6 g/dL 6.4-8.2 Serum or plasma albumin measurement (mass/volume) 3.7 g/dL 3.2-4.5 Serum or plasma phosphate measurement (m ass/volume) - 09/28/17 05:38 Serum or plasma phosphate measurement (mass/volume) 3.9 mg/dL 2.3-4.7 Magnesium - 09/28/17 05:38 Magnesium 2.2 mg/dL 1.8-2.4 Serum or plasma lithium measurement (mol es/volume) - 09/28/17 05:38 BNP level 732.3 pg/mL <100.0 C DIFFICILE AG + TOXIN A/B. - 09/28/17 1 1:32 RESULTS NEGATIVE FOR ANTIGEN AND TOXIN A/B [facility] Complete blood count (CBC) with automate d white blood cell (WBC) differential - 09/29/17 05:19 Blood leukocytes automated count (number/volume) 7.0 10*3/uL 4.3-11.0 Blood erythrocytes automated count (number/volume) 4.04 10*6/uL 4.35-5.85 Venous blood hemoglobin measurement (mass/volume) 8.6 g/dL 11.5-16.0 Blood hematocrit (volume fraction) 29 % 35-52 Automated erythrocyte mean corpuscular volume 72 [ foz_us] 80-99 Automated erythrocyte mean corpuscular h emoglobin (mass per erythrocyte) 21 pg 25-34 Automated erythrocyte mean corpuscular h emoglobin concentration measurement (mass/volume) 30 g/dL 32-36 Automated erythrocyte distribution width ratio 24. 2 % 10.0- 14.5 Automated blood platelet count (count/volume) 422 10*3/uL 130-400 Automated blood platelet mean volume measurement 10.1 [foz_us] 7.4-10.4 Automated blood neutrophils/100 leukocytes 54 % 42-75 Automated blood lymphocytes/100 leukocytes 29 % 12-44 Blood monocytes/100 leukocytes 10 % 0-12 Automated blood eosinophils/100 leukocytes 6 % 0-10 Automated blood basophils/100 leukocytes 1 % 0-10 Blood neutrophils automated count (number/volume) 3.8 10*3 1.8-7.8 Blood lymphocytes automated count (number/volume) 2.1 10*3 1.0-4.0 Blood monocytes automated count (number/volume) 0. 7 10*3 0.0-1.0 Automated eosinophil count 0.4 10*3/uL 0 .0-0.3 Automated blood basophil count (count/volume) 0.1 10*3/uL 0.0-0.1 Comprehensive metabolic panel - 09/29/17 05:19 Serum or plasma sodium measurement (moles/volume) 141 mmol/L 135-145 Serum or plasma potassium measurement (moles/volume) 4.4 mmol/L 3.6-5.0 Serum or plasma chloride measurement (moles/volume) 108 mmol/L 98-107 Carbon dioxide 28 mmol/L 21-32 Serum or plasma anion gap determination (moles/volume) 5 mmol/L 5-14 Serum or plasma urea nitrogen measurement (mass/volume ) 20 mg/dL 7-18 Serum or plasma creatinine measurement (mass/volume) 0.74 mg/dL 0.60-1.30 Serum or plasma urea nitrogen/creatinine mass ratio 27 NRG Serum or plasma creatinine measurement w ith calculation of estimated glomerular filtration rate > NRG Serum or plasma glucose measurement (mass/volume) 89 mg/dL 70-105 Serum or plasma calcium measurement (mass/volume) 8.8 mg/dL 8.5-10.1 Serum or plasma total bilirubin measurement (mass/volu me) 0.2 mg/dL 0.1-1.0 Serum or plasma alkaline phosphatase kranthi surement (enzymatic activity/volume) 63 U/L 40-136 Serum or plasma aspartate aminotransfera se measurement (enzymatic activity/volume) 59 U/L 5-34 Serum or plasma alanine aminotransferase measurement (enzymatic activity/volume) 38 U/L 0-55 Serum or plasma protein measurement (mass/volume) 7.1 g/dL 6.4-8.2 Serum or plasma albumin measurement (mass/volume) 3.5 g/dL 3.2-4.5 Serum or plasma phosphate measurement (m ass/volume) - 09/29/17 05:19 Serum or plasma phosphate measurement (mass/volume) 4.4 mg/dL 2.3-4.7 Magnesium - 09/29/17 05:19 Magnesium 2.1 mg/dL 1.8-2.4 Whole blood basic metabolic panel - 09/24 07/13 09:46 Serum or plasma sodium measurement (moles/volume) 141 mmol/L 135-145 Serum or plasma potassium measurement (moles/volume) 4.0 mmol/L 3.6-5.0 Serum or plasma chloride measurement (moles/volume) 101 mmol/L 98-107 Carbon dioxide 28 mmol/L -32 Serum or plasma anion gap determination (moles/volume) 12 mmol/L 5-14 Serum or plasma urea nitrogen measurement (mass/volume ) 16 mg/dL 7-18 Serum or plasma creatinine measurement (mass/volume) 0.93 mg/dL 0.60-1.30 Serum or plasma urea nitrogen/creatinine mass ratio 17 NRG Serum or plasma creatinine measurement w ith calculation of estimated glomerular filtration rate > NRG Serum or plasma glucose measurement (mass/volume) 94 mg/dL 70-105 Serum or plasma calcium measurement (mass/volume) 9.7 mg/dL 8.5-10.1 Methicillin resistant Staphylococcus aur eus (MRSA) screening culture - 03/26/18 09:50 Methicillin resistant Staphylococcus aureus (MRSA) scr eening culture NEG NRG Complete urinalysis with reflex to cultu re - 09/04/18 11:42 Urine color determination YELLOW NRG Urine clarity determination CLEAR NR G Urine pH measurement by test strip 6 5-9 Specific gravity of urine by test strip 1.025 1.016-1.022 Urine protein assay by test strip, semi-quantitative NEGATIVE NEGATIVE Urine glucose detection by automated test strip NE GATIVE NEGATIVE Erythrocytes detection in urine sediment by light micr oscopy NEGATIVE NEGATIVE Urine ketones detection by automated test strip NE GATIVE NEGATIVE Urine nitrite detection by test strip NEGATIVE NEGATIVE Urine total bilirubin detection by test strip NEGA TIVE NEGATIVE Urine urobilinogen measurement by automated test strip (mass/volume) NORMAL NORMAL Urine leukocyte esterase detection by dipstick 1+ NEGATIVE Automated urine sediment erythrocyte cou nt by microscopy (number/high power field) NONE NRG Automated urine sediment leukocyte count by microscopy (number/high power field) [HPF] NRG Bacteria detection in urine sediment by light microsco py NEGATIVE NRG Squamous epithelial cells detection in u rine sediment by light microscopy RARE NRG Crystals detection in urine sediment by light microsco py NONE NRG Casts detection in urine sediment by light microscopy NONE NRG Mucus detection in urine sediment by light microscopy NEGATIVE NRG Complete urinalysis with reflex to culture NO NRG Influenza virus A and B antigen detectio n - 09/04/18 14:30 FLU RESULT NEGATIVE FOR INFLUENZA A AND B ANTIGENS BY IA NRG Complete blood count (CBC) with automate d white blood cell (WBC) differential - 09/04/18 14:35 Blood leukocytes automated count (number/volume) 6.8 10*3/uL 4.3-11.0 Blood erythrocytes automated count (number/volume) 3.08 10*6/uL 4.35-5.85 Venous blood hemoglobin measurement (mass/volume) 8.4 g/dL 11.5-16.0 Blood hematocrit (volume fraction) 27 % 35-52 Automated erythrocyte mean corpuscular volume 88 [ foz_us] 80-99 Automated erythrocyte mean corpuscular h emoglobin (mass per erythrocyte) 27 pg 25-34 Automated erythrocyte mean corpuscular h emoglobin concentration measurement (mass/volume) 31 g/dL 32-36 Automated erythrocyte distribution width ratio 13. 5 % 10.0- 14.5 Automated blood platelet count (count/volume) 445 10*3/uL 130-400 Automated blood platelet mean volume measurement 9.7 [foz_us] 7.4-10.4 Automated blood neutrophils/100 leukocytes 68 % 42-75 Automated blood lymphocytes/100 leukocytes 24 % 12-44 Blood monocytes/100 leukocytes 7 % 0-12 Automated blood eosinophils/100 leukocytes 0 % 0-10 Automated blood basophils/100 leukocytes 1 % 0-10 Blood neutrophils automated count (number/volume) 4.7 10*3 1.8-7.8 Blood lymphocytes automated count (number/volume) 1.7 10*3 1.0-4.0 Blood monocytes automated count (number/volume) 0. 5 10*3 0.0-1.0 Automated eosinophil count 0.0 10*3/uL 0 .0-0.3 Automated blood basophil count (count/volume) 0.0 10*3/uL 0.0-0.1 Comprehensive metabolic panel - 09/04/18 14:35 Serum or plasma sodium measurement (moles/volume) 135 mmol/L 135-145 Serum or plasma potassium measurement (moles/volume) 3.9 mmol/L 3.6-5.0 Serum or plasma chloride measurement (moles/volume) 104 mmol/L 98-107 Carbon dioxide 20 mmol/L 21-32 Serum or plasma anion gap determination (moles/volume) 11 mmol/L 5-14 Serum or plasma urea nitrogen measurement (mass/volume ) 15 mg/dL 7-18 Serum or plasma creatinine measurement (mass/volume) 0.82 mg/dL 0.60-1.30 Serum or plasma urea nitrogen/creatinine mass ratio 18 NRG Serum or plasma creatinine measurement w ith calculation of estimated glomerular filtration rate > NRG Serum or plasma glucose measurement (mass/volume) 123 mg/dL 70-105 Serum or plasma calcium measurement (mass/volume) 9.0 mg/dL 8.5-10.1 Serum or plasma total bilirubin measurement (mass/volu me) 0.3 mg/dL 0.1-1.0 Serum or plasma alkaline phosphatase kranthi surement (enzymatic activity/volume) 84 U/L 40-136 Serum or plasma aspartate aminotransfera se measurement (enzymatic activity/volume) 24 U/L 5-34 Serum or plasma alanine aminotransferase measurement (enzymatic activity/volume) 9 U/L 0-55 Serum or plasma protein measurement (mass/volume) 7.3 g/dL 6.4-8.2 Serum or plasma albumin measurement (mass/volume) 3.8 g/dL 3.2-4.5 CALCIUM CORRECTED 9.2 mg/dL 8.5-10.1 Complete blood count (CBC) with automate d white blood cell (WBC) differential - 09/05/18 04:57 Blood leukocytes automated count (number/volume) 12.4 10*3/uL 4.3-11.0 Blood erythrocytes automated count (number/volume) 3.05 10*6/uL 4.35-5.85 Venous blood hemoglobin measurement (mass/volume) 8.2 g/dL 11.5-16.0 Blood hematocrit (volume fraction) 27 % 35-52 Automated erythrocyte mean corpuscular volume 87 [ foz_us] 80-99 Automated erythrocyte mean corpuscular h emoglobin (mass per erythrocyte) 27 pg 25-34 Automated erythrocyte mean corpuscular h emoglobin concentration measurement (mass/volume) 31 g/dL 32-36 Automated erythrocyte distribution width ratio 13. 9 % 10.0- 14.5 Automated blood platelet count (count/volume) 418 10*3/uL 130-400 Automated blood platelet mean volume measurement 9.9 [foz_us] 7.4-10.4 Automated blood neutrophils/100 leukocytes 86 % 42-75 Automated blood lymphocytes/100 leukocytes 8 % 12-44 Blood monocytes/100 leukocytes 6 % 0-12 Automated blood eosinophils/100 leukocytes 0 % 0-10 Automated blood basophils/100 leukocytes 0 % 0-10 Blood neutrophils automated count (number/volume) 10.7 10*3 1.8-7.8 Blood lymphocytes automated count (number/volume) 0.9 10*3 1.0-4.0 Blood monocytes automated count (number/volume) 0. 7 10*3 0.0-1.0 Automated eosinophil count 0.0 10*3/uL 0 .0-0.3 Automated blood basophil count (count/volume) 0.0 10*3/uL 0.0-0.1 Comprehensive metabolic panel - 09/05/18 04:57 Serum or plasma sodium measurement (moles/volume) 136 mmol/L 135-145 Serum or plasma potassium measurement (moles/volume) 3.9 mmol/L 3.6-5.0 Serum or plasma chloride measurement (moles/volume) 107 mmol/L 98-107 Carbon dioxide 22 mmol/L 21-32 Serum or plasma anion gap determination (moles/volume) 7 mmol/L 5-14 Serum or plasma urea nitrogen measurement (mass/volume ) 14 mg/dL 7-18 Serum or plasma creatinine measurement (mass/volume) 0.76 mg/dL 0.60-1.30 Serum or plasma urea nitrogen/creatinine mass ratio 18 NRG Serum or plasma creatinine measurement w ith calculation of estimated glomerular filtration rate > NRG Serum or plasma glucose measurement (mass/volume) 103 mg/dL 70-105 Serum or plasma calcium measurement (mass/volume) 8.6 mg/dL 8.5-10.1 Serum or plasma total bilirubin measurement (mass/volu me) 0.4 mg/dL 0.1-1.0 Serum or plasma alkaline phosphatase karnthi surement (enzymatic activity/volume) 82 U/L 40-136 Serum or plasma aspartate aminotransfera se measurement (enzymatic activity/volume) 25 U/L 5-34 Serum or plasma alanine aminotransferase measurement (enzymatic activity/volume) 9 U/L 0-55 Serum or plasma protein measurement (mass/volume) 6.8 g/dL 6.4-8.2 Serum or plasma albumin measurement (mass/volume) 3.6 g/dL 3.2-4.5 CALCIUM CORRECTED 8.9 mg/dL 8.5-10.1 [employer]IA [employer]ER - 09/05/18 04:57 Blood leukocytes automated count (number/volume) 12.4 10*3/uL 4.3-11.0 Blood erythrocytes automated count (number/volume) 3.00 10*6/uL 4.35-5.85 Venous blood hemoglobin measurement (mass/volume) 8.2 g/dL 11.5-16.0 Blood hematocrit (volume fraction) 26 % 35-52 Automated erythrocyte mean corpuscular volume 88 [ foz_us] 80-99 Automated erythrocyte mean corpuscular h emoglobin (mass per erythrocyte) 27 pg 25-34 Automated erythrocyte mean corpuscular h emoglobin concentration measurement (mass/volume) 31 g/dL 32-36 Automated erythrocyte distribution width ratio 13. 9 % 10.0- 14.5 Automated blood platelet count (count/volume) 344 10*3/uL 130-400 Automated blood platelet mean volume measurement 10.2 [foz_us] 7.4-10.4 Automated blood neutrophils/100 leukocytes 86 % 42-75 Automated blood lymphocytes/100 leukocytes 8 % 12-44 Blood monocytes/100 leukocytes 5 % NRG Automated blood eosinophils/100 leukocytes 1 % 0-10 Automated blood basophils/100 leukocytes 0 % 0-10 Blood neutrophils automated count (number/volume) 10.6 10*3 1.8-7.8 Blood lymphocytes automated count (number/volume) 0.9 10*3 1.0-4.0 Blood monocytes automated count (number/volume) 0. 8 10*3 0.0-1.0 Automated eosinophil count 0.1 10*3/uL 0 .0-0.3 Automated blood basophil count (count/volume) 0.0 10*3/uL 0.0-0.1 Manual blood segmented neutrophils/100 leukocytes 86 % NRG Blood band neutrophils/100 leukocytes 0 % NRG Manual blood lymphocytes/100 leukocytes 9 % NRG Manual eosinophils/100 leukocytes in nose 0 % NRG Manual blood basophils/100 leukocytes 0 % NRG Blood anisocytosis detection by light microscopy S LIGHT NRG Blood reticulocytes count (number/volume) 44 10*9/ L 24-90 Blood reticulocytes/100 erythrocytes 1.47 % 0.50-2.40 Serum or plasma folate measurement (mass /volume) - 09/05/18 04:57 Serum or plasma folate measurement (mass/volume) 1 8.2 ng/mL >=4.0 Serum iron and total iron binding capaci ty panel - 09/05/18 04:57 Serum or plasma iron measurement (mass/volume) 10 L 35-180 Total iron binding capacity and transferrin saturation measurement 2 L 15-50 Iron binding capacity [mass/volume] in serum or plasma 425 H 280-380 UIBC (unsaturated iron binding capacity) 415 ug/dL 55-450 Serum or plasma ferritin measurement (mass/volume) 7.2 L 20.0-177.0 Cyanocobalamin measurement - 09/05/18 04 :57 Vitamin B12 859 pg/mL 190-1100 Automated blood complete blood count (he mogram) panel - 07/12/19 12:54 Blood leukocytes automated count (number/volume) 6.0 10*3/uL 4.3-11.0 Blood erythrocytes automated count (number/volume) 3.43 10*6/uL 4.35-5.85 Venous blood hemoglobin measurement (mass/volume) 10.2 g/dL 11.5-16.0 Blood hematocrit (volume fraction) 34 % 35-52 Automated erythrocyte mean corpuscular volume 98 [ foz_us] 80-99 Automated erythrocyte mean corpuscular h emoglobin (mass per erythrocyte) 30 pg 25-34 Automated erythrocyte mean corpuscular h emoglobin concentration measurement (mass/volume) 30 g/dL 32-36 Automated erythrocyte distribution width ratio 13. 7 % 10.0- 14.5 Automated blood platelet count (count/volume) 297 10*3/uL 130-400 Automated blood platelet mean volume measurement 10.6 [foz_us] 7.4-10.4 Comprehensive metabolic panel - 07/12/19 12:54 Serum or plasma sodium measurement (moles/volume) 137 mmol/L 135-145 Serum or plasma potassium measurement (moles/volume) 4.5 mmol/L 3.6-5.0 Serum or plasma chloride measurement (moles/volume) 108 mmol/L 98-107 Carbon dioxide 20 mmol/L 21-32 Serum or plasma anion gap determination (moles/volume) 9 mmol/L 5-14 Serum or plasma urea nitrogen measurement (mass/volume ) 12 mg/dL 7-18 Serum or plasma creatinine measurement (mass/volume) 0.78 mg/dL 0.60-1.30 Serum or plasma urea nitrogen/creatinine mass ratio 15 NRG Serum or plasma creatinine measurement w ith calculation of estimated glomerular filtration rate > NRG Serum or plasma glucose measurement (mass/volume) 94 mg/dL 70-105 Serum or plasma calcium measurement (mass/volume) 8.9 mg/dL 8.5-10.1 Serum or plasma total bilirubin measurement (mass/volu me) < mg/dL 0.1-1.0 Serum or plasma alkaline phosphatase kranthi surement (enzymatic activity/volume) 76 U/L 40-136 Serum or plasma aspartate aminotransfera se measurement (enzymatic activity/volume) 29 U/L 5-34 Serum or plasma alanine aminotransferase measurement (enzymatic activity/volume) 11 U/L 0-55 Serum or plasma protein measurement (mass/volume) 7.3 g/dL 6.4-8.2 Serum or plasma albumin measurement (mass/volume) 3.7 g/dL 3.2-4.5 CALCIUM CORRECTED 9.1 mg/dL 8.5-10.1 Serum or plasma lithium measurement (mol es/volume) - 07/12/19 12:54 BNP PT 228.5 pg/mL <100.0 Complete urinalysis with reflex to cultu re - 08/27/19 08:40 Urine color determination YELLOW NRG Urine clarity determination SL CLOUDY N RG Urine pH measurement by test strip 6.0 5-9 Specific gravity of urine by test strip 1.025 1.016-1.022 Urine protein assay by test strip, semi-quantitative NEGATIVE NEGATIVE Urine glucose detection by automated test strip NE GATIVE NEGATIVE Erythrocytes detection in urine sediment by light micr oscopy 1+ NEGATIVE Urine ketones detection by automated test strip TR MILES NEGATIVE Urine nitrite detection by test strip POSITIVE NEGATIVE Urine total bilirubin detection by test strip NEGA TIVE NEGATIVE Urine urobilinogen measurement by automated test strip (mass/volume) 0.2 mg/dL < = 1.0 Urine leukocyte esterase detection by dipstick 1+ NEGATIVE Automated urine sediment erythrocyte cou nt by microscopy (number/high power field) [HPF] NRG Automated urine sediment leukocyte count by microscopy (number/high power field) [HPF] NRG Bacteria detection in urine sediment by light microsco py MODERATE NRG Squamous epithelial cells detection in u rine sediment by light microscopy 0-2 NRG Crystals detection in urine sediment by light microsco py NONE NRG Casts detection in urine sediment by light microscopy PRESENT NRG Mucus detection in urine sediment by light microscopy SMALL NRG Complete urinalysis with reflex to culture YES NRG Hyaline casts detection in urine sediment by light norman roscopy 2-5 NRG Bacterial urine culture - 08/27/19 08:40 Bacterial urine culture 3 OR MORE NRG COLONY COUNT >100,000/ML NRG FTX;REPORTABLE SUGGESTING PROBABLE COLLECTION NRG FREE TEXT ENTRY 2 CONTAMINATION WITH SKIN LUL NRG FREE TEXT ENTRY 3 NO SUSCEPTIBILITY PERFORMED NRG Complete blood count (CBC) with automate d white blood cell (WBC) differential - 08/27/19 08:55 Blood leukocytes automated count (number/volume) 4.9 10*3/uL 4.3-11.0 Blood erythrocytes automated count (number/volume) 3.78 10*6/uL 4.35-5.85 Venous blood hemoglobin measurement (mass/volume) 11.0 g/dL 11.5-16.0 Blood hematocrit (volume fraction) 36 % 35-52 Automated erythrocyte mean corpuscular volume 95 [ foz_us] 80-99 Automated erythrocyte mean corpuscular h emoglobin (mass per erythrocyte) 29 pg 25-34 Automated erythrocyte mean corpuscular h emoglobin concentration measurement (mass/volume) 31 g/dL 32-36 Automated erythrocyte distribution width ratio 13. 9 % 10.0- 14.5 Automated blood platelet count (count/volume) 459 10*3/uL 130-400 Automated blood platelet mean volume measurement 10.1 [foz_us] 7.4-10.4 Automated blood neutrophils/100 leukocytes 71 % 42-75 Automated blood lymphocytes/100 leukocytes 18 % 12-44 Blood monocytes/100 leukocytes 8 % 0-12 Automated blood eosinophils/100 leukocytes 2 % 0-10 Automated blood basophils/100 leukocytes 1 % 0-10 Blood neutrophils automated count (number/volume) 3.5 10*3 1.8-7.8 Blood lymphocytes automated count (number/volume) 0.9 10*3 1.0-4.0 Blood monocytes automated count (number/volume) 0. 4 10*3 0.0-1.0 Automated eosinophil count 0.1 10*3/uL 0 .0-0.3 Automated blood basophil count (count/volume) 0.0 10*3/uL 0.0-0.1 Whole blood basic metabolic panel - 09/12 08:55 Serum or plasma sodium measurement (moles/volume) 138 mmol/L 135-145 Serum or plasma potassium measurement (moles/volume) 5.4 mmol/L 3.6-5.0 Serum or plasma chloride measurement (moles/volume) 106 mmol/L 98-107 Carbon dioxide 24 mmol/L 21-32 Serum or plasma anion gap determination (moles/volume) 8 mmol/L 5-14 Serum or plasma urea nitrogen measurement (mass/volume ) 11 mg/dL 7-18 Serum or plasma creatinine measurement (mass/volume) 0.94 mg/dL 0.60-1.30 Serum or plasma urea nitrogen/creatinine mass ratio 12 NRG Serum or plasma creatinine measurement w ith calculation of estimated glomerular filtration rate 60 NRG Serum or plasma glucose measurement (mass/volume) 85 mg/dL 70-105 Serum or plasma calcium measurement (mass/volume) 9.3 mg/dL 8.5-10.1 Encounters ACCT No. Visit Date/Time Discharge Status Pt. Type Provider Facility Loc./Unit Complaint [id number] 08/27/2019 08:22:00 11:18:00 DIS Outpatient KALEIGH JOHNSON ADELAIDE Gray [facility] ER HYPOTENSION [id number] 07/12/2019 12:01:00 23:59:59 CLS Outpatient EVE SOSA DO [facility] RAD SOB,COUGH [id number] 09/20/2018 14:48:00 23:59:59 CLS Outpatient EVE SOSA DO [facility] RAD LEFT HIP AND PE LVIS WALKING FUNNY [id number] 09/04/2018 15:55:00 13:35:00 DIS Inpatient EVE SOSA DO [facility] 4TH EPILEPSY;CHRONI C ANEMIA [id number] 09/04/2018 11:20:00 13:15:00 DIS Emergency BERNOT, JULIA [facility] ER SEIZURE [id number] 03/26/2018 09:45:00 14:05:00 DIS Outpatient IRASEMA PULLIAM DDS [facility] SDC EXTRACTION [id number] 03/20/2018 10:25:00 15:00:00 DIS Outpatient IRASEMA PULLIAM DDS [facility] PREOP FULL MOUTH TOOTH EXTRAC TION [id number] 03/20/2018 12:45:00 12:45:00 CAN Preadmit IRASEMA PULLIAM DDS [facility] PREOP TOOTH EXTRACTION [id number] 10/19/2017 13:26:00 23:59:59 CLS Outpatient EVE SOSA DO [facility] RAD PNEUMONIA [id number] 10/11/2017 10:28:00 23:59:59 CLS Outpatient EVE SOSA DO [facility] RAD PNEUMONIA [id number] 10/04/2017 09:41:00 23:59:59 CLS Outpatient EVE SOSA DO [facility] RAD I50.9 [id number] 10/02/2017 10:21:00 23:59:59 CLS Outpatient EVE SOSA DO [facility] RAD Z09 [id number] 09/25/2017 22:10:00 13:05:00 DIS Inpatient EVE SOSA DO [facility] 4TH HYPOXIA,SEIZURE LIKE ACTIVITY,SEVERE SEPSIS,UTI,- [id number] 12/27/2016 07:08:00 017 09:01:00 DIS Emergency FANNIE LINO, KHANG Pate [facility] ER FALL/HEAD LAC [id number] 11/22/2016 13:17:00 017 23:59:59 CLS Outpatient EVE SOSA DO [facility] RAD RIGHT HIP PAIN [id number] 09/03/2019 11:00:00 P EN Preadmit QUIN LINO, DILLON [place] [facility] CARD DYSPNEA ON EXERTION,PVS,AUTI SM [id number] 10/26/2011 10:33:00 Document Registration
== END 2019-08-27 11:18 | disposition home or self-care (01) ==
LOC: EDUNIT# 08:21 → ER 08:22
DX: N30.90 Cystitis, unspecified without hematuria (principal); F41.9 Anxiety disorder, unspecified; F31.9 Bipolar disorder, unspecified
CPT/HCPCS: 36415; 80048; 81000; 85025; 87088

== ENCOUNTER → 2019-09-03 | Outpatient (CLI) | payer MEDICARE, MEDICAID ==
[~2019-09-03] MED LIST changes: +CEPH500T PO
== END ==
LOC: CARD 10:57
PROVIDERS: ATTEND Internal Medicine Cardiovascular Disease
DX: I08.3 Combined rheumatic disorders of mitral, aortic and tricuspid valves (principal); I49.3 Ventricular premature depolarization; F84.0 Autistic disorder
CPT/HCPCS: 93306

== ENCOUNTER 2021-04-24 10:08 | Emergency (ER) | payer MEDICARE, MEDICAID ==
[~2021-04-24] VITALS: Ht 160 cm; Wt 54.0 kg
[~2021-04-24 10:08] MED LIST changes: +MULT-567 PO; -MULT1TAB69 PO; +[UNRECOGNIZED DRUG - CODE] PO; -[UNRECOGNIZED DRUG - CODE] PO
--- NOTE | 2021-04-24 10:29 | ED Upper Extremity ---
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 PT HAS BEEN FAVORING HER L ARM SINCE THIS MORNING AFTER WAKING UP. 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 Lives in a shelter setting, is nonverbal at baseline and staff reported that she fell in the kitchen. Unwi tnessed but immediately attended to by staff. No LOC reported by staff. SHe apparently landed on her left arm and has since been "favoring it". She has developed swelling and ecchymoses to the LUE. Given tylenol for pain. No reported change in mental status baseline. No vomiting. No other sources of pain discovered. She does have a history of seizures. All other ROS reviewed with caregiver at the bedside and negative except as stated. Patient is unable to participate in HPI, ROS or PMH, PSH or social history due to cognitive disability. Onset: yesterday (last night 9:30pm) Pain/Injury Location: left arm Method of Injury: fell Allergies and Home Medications Allergies Coded Allergies: No Known Drug Allergies (Unverified , 12/27/16) Patient Home Medication List Home Medication List Reviewed: Yes Acetaminophen (Tylenol) 325 Mg Tablet, 650 MG PO Q4H PRN for PAIN-MILD, (Reported) Entered as Reported by: BILL MCCLELLAND on 09/26/17 1039 Bisacodyl (Bisacodyl) 5 Mg Tablet.dr, 10 MG PO MoWeFr@2100, (Reported) Entered as Reported by: BILL MCCLELLAND on 09/05/18 0911 Cephalexin (Cephalexin) 500 Mg Tablet, 500 MG PO QID Prescribed by: ADELAIDE FARRIS on 08/27/19 1004 Clonazepam (Clonazepam) 2 Mg Tablet, 2 MG PO HS, (Reported) Entered as Reported by: LENA BOGGS on 09/25/172003 Docusate Calcium (Stool Softener) 240 Mg Capsule, 240 MG PO DAILY, (Reported) Entered as Reported by: LENA BOGGS on 09/25/172003 Hydrocodone/Acetaminophen (Hydrocodone-Acetamin 5-325 mg) 1 Each Tablet, 1 TAB PO Q6H PRN for PAIN-MODERATE (5-7) Prescribed by: AMBER RUVALCABA on 04/24/21 1134 Levetiracetam (Levetiracetam) 500 Mg Tablet, 500 MG PO BID Prescribed by: JOSE MALAVE on 09/05/18 1324 Loratadine (Loratadine) 10 Mg Tablet, 10 MG PO DAILY, (Reported) Entered as Reported by: BILL MCCLELLAND on 09/26/17 1039 Magnesium Hydroxide (Milk of Magnesia) 400 Mg/5 Ml Oral.susp, 30 ML PO DAILY PRN for CONSTIPATION-7TH LINE, (Reported) Entered as Reported by: BILL MCCLELLAND on 09/26/17 1039 Multivitamin (Multivitamins) 1 Each Tablet, 1 TAB PO DAILY, (Reported) Entered as Reported by: BILL MCCLELLAND on 09/05/18 0911 Sennosides/Docusate Sodium (Senna S Tablet) 1 Each Tablet, 1 TAB PO DAILY, (Reported) Entered as Reported by: BILL MCCLELLAND on 09/05/18 0911 Review of Systems Constitutional: see HPI EENTM: no symptoms reported Respiratory: no symptoms reported Cardiovascular: no symptoms reported Gastrointestinal: no symptoms reported Genitourinary: no symptoms reported : No Musculoskeletal: other (left arm swelling and "pain"; "favoring" left arm) Skin: other (bruising left arm) Psychiatric/Neurological: Other ("non verbal" history of "Down's syndrome") All Other Systems Reviewed Negative Unless Noted: Yes Past Pzdttik-Pddqma-Kfrtpt Hx Patient Social History Tobacco Use?: No Use of E-Cig and/or Vaping dev: No Substance use?: No Alcohol Use?: No Pt feels they are or have been: No Immunizations Up To Date Tetanus Booster (TDap): Unknown Influenza Vaccine Up-to-Date: No; Not Current First/Initial COVID19 Vaccinat: AUGUST 2020 Second COVID19 Vaccination Ezra: SEPTEMBER 2020 COVID19 Vaccine Provider Relations Manager: [employer] Seasonal Allergies Seasonal Allergies: Yes Past Medical History Surgeries: Yes (RT EYE) Respiratory: No Cardiac: Yes (PVC'S) Neurological: Yes (had one seizure in 10/11 when she was septic, none since or before) Reproductive Disorders: No Genitourinary: No Gastrointestinal: Yes (nausea) Chronic Constipation Musculoskeletal: No Endocrine: No HEENT: No Cancer: No Psychosocial: Yes (AUTISM,OCD,INTELLECTUAL DISORDER) Anxiety, Bipolar Integumentary: No Blood Disorders: No Family Medical History Seizure disorder twin sister Physical Exam Vital Signs Vital Signs - First Documented 04/24/21 10:19 Temp 36.5 Pulse 83 Resp 16 B/P (MAP) 100/60 (73) Pulse Ox 93 O2 Delivery Room Air Capillary Refill : Less Than 3 Seconds Height, Weight, BMI Height: 5'6.00" Weight: 145lbs. 0.0oz. 65.393077tr; 21.00 BMI Method:Estimated General Appearance: WD/WN, no apparent distress HEENT: PERRL/EOMI, TMs normal (left TM occluded by cerumen; right TM clear, no hemotympanum; no battles sign or raccoon eyes) Neck: non-tender, full range of motion Cardiovascular: regular rate, rhythm, other (distal pulses intact; 2+ radial bilaterally) Respiratory: lungs clear, normal breath sounds, no respiratory distress, no accessory muscle use Gastrointestinal: normal bowel sounds, non tender, soft Shoulder: normal inspection (non bony tenderness palpated over the shouler - patient doesn not grimace with vigorous palpation; she does have circumferential swelling and ecchymoses to the left upper arm; tender to touch and manipulate; ), limited ROM Elbow/Forearm: normal inspection, non-tender, no evidence of injury, Left Wrist: Yes normal inspection, Yes non-tender, Yes no evidence of injury, Yes normal ROM Hand: normal inspection, non-tender, no evidence of injury, normal ROM, Left Neurologic/Tendon: other (baseline nonverbal) Neurologic/Psychiatric: alert Skin: normal color, warm/dry Procedures/Interventions Suture Size: 5-0 Progress/Results/Core Measures Results/Orders My Orders Medications Given in ED Vital Signs/I&O Blood Pressure Mean: 73 Progress Progress Note : Time: 11:37 Progress Note Patient given hydrocodone for pain. Placed in a shoulder immobilizer. She is neurovascularly intact to the left upper extremity. She does have some what appears to be some subluxation at the left shoulder joint. Radiographically this may be attributed to effusion in the joint. Return precautions given to the caregiver. All questions are sought and answered. Patient is stable for discharge. Referred to orthopedics. Diagnostic Imaging Diagonstic Imaging: Xray Comments [facility]. [place], [place] NAME: ARIELLE HUBBARD [facility] REC#: [id number] PT STATUS: REG ER : 1955 PHYSICIAN: AMBER RUVALCABA MD ADMIT DATE: 04/24/21/ER Draft Date of Exam:04/24/21 HUMERUS, LEFT, 2 VIEWS CLINICAL INDICATIONS: Patient status post fall. Patient favoring left arm. Patient has swelling and bruising noted. EXAM: X-ray of the left humerus, 2 views. COMPARISON: None. FINDINGS: There is a comminuted displaced, impacted fracture of the proximal humeral neck, and possible humeral head. There is inferior positioning of the humeral head in relation to the glenoid which may represent dislocation or pseudosubluxation from joint effusion. There is foreshortening of the fracture region noted. There is soft tissue swelling laterally adjacent to the shoulder region. The remainder of this exam shows no other significant abnormality. IMPRESSION: There is multi comminuted displaced fracture of the proximal left humeral neck region, and possible humeral head, with foreshortening of the fracture region. There is also inferior position of the humeral head in relation to the glenoid which may be related to dislocation or pseudosubluxation from joint effusion. Dictated on workstation # [id number] Dict: 04/24/21 1051 Trans: 04/24/21 1105 [facility] [id number] Interpreted by: HELEN BOURGEOIS MD Electronically signed by: Departure Impression Primary Impression: Closed fracture of head of left humerus Qualified Codes: S42.292A - Other displaced fracture of upper end of left humerus, initial encounter for closed fracture Disposition: 01 HOME, SELF-CARE Condition: Stable Departure-Patient Inst. Decision time for Depature: 11:34 Referrals: EVE SOSA DO (PCP/Family) Primary Care Physician CELSA KLEIN MD, TERRY D MD Patient Instructions: Shoulder Fracture (DC) Add. Discharge Instructions: Keep the shoulder immobilizer in place until follow-up with orthopedics. I have given you contact information for Dr. Klein as well as Dr. Moffett. Please call Monday morning for a follow-up appointment early next week. Ice packs to the left arm over the next couple of days. 20 minutes at a time 4- 5 times a day. I have given you a prescription for hydrocodone 1 tablet every 6 hours as needed for pain. Always take this medication with food. Return to the emergency room for any new, concerning or emergent complaints. Scripts Hydrocodone/Acetaminophen (Hydrocodone-Acetamin 5-325 mg) 1 Each Tablet 1 TAB PO Q6H PRN for PAIN-MODERATE (5-7), #20 TAB Prov: AMBER RUVALCABA MD 04/24/21 AMBER RUVALCABA MD Apr 24, 2021 10:29
[2021-04-24] MEDS ORDERED: HYDROcodone/APAP 5 MG/325 MG (LORTAB) TAB PO ONE (11:00)
--- NOTE | 2021-04-24 11:05 | Diagnostic Imaging Report ---
CLINICAL INDICATIONS: Patient status post fall. Patient favoring left arm. Patient has swelling and bruising noted. EXAM: X-ray of the left humerus, 2 views. COMPARISON: None. FINDINGS: There is a comminuted displaced, impacted fracture of the proximal humeral neck, and possible humeral head. There is inferior positioning of the humeral head in relation to the glenoid which may represent dislocation or pseudosubluxation from joint effusion. There is foreshortening of the fracture region noted. There is soft tissue swelling laterally adjacent to the shoulder region. The remainder of this exam shows no other significant abnormality. IMPRESSION: There is multi comminuted displaced fracture of the proximal left humeral neck region, and possible humeral head, with foreshortening of the fracture region. There is also inferior position of the humeral head in relation to the glenoid which may be related to dislocation or pseudosubluxation from joint effusion. Dictated by: Dictated on workstation # [id number]
[2021-04-24] MEDS ORDERED: ACHD5005 PO (11:33)
[2021-04-24 11:44] VITALS: BP 137/62
== END 2021-04-24 11:46 | disposition home or self-care (01) ==
LOC: EDUNIT# 10:08 → ER 10:10
DX: S42.292A Other displaced fracture of upper end of left humerus, initial encounter for closed fracture (principal); S40.022A Contusion of left upper arm, initial encounter; F41.9 Anxiety disorder, unspecified; Z79.899 Other long term (current) drug therapy; W19.XXXA Unspecified fall, initial encounter; Y92.000 Kitchen of unspecified non-institutional (private) residence as the place of occurrence of the external cause
CPT/HCPCS: 73060; 99282; L3650

== ENCOUNTER → 2021-04-27 | Outpatient (CLI) | payer MEDICARE, MEDICAID ==
[~2021-04-27] MED LIST changes: +ACHD5005 PO
== END ==
LOC: ORTHO 09:26
PROVIDERS: ATTEND Orthopaedic Surgery
DX: S42.202A Unspecified fracture of upper end of left humerus, initial encounter for closed fracture (principal); X58.XXXA Exposure to other specified factors, initial encounter
CPT/HCPCS: 99202

== ENCOUNTER 2022-08-01 18:09 | Inpatient (IN) | payer MEDICARE, MEDICAID ==
[~2022-08-01] VITALS: Ht 160 cm; Wt 44.9 kg
[~2022-08-01 18:09] MED LIST changes: +BISA5TAB20; +BISA5TAB20 PO; -BISA5TAB8; -BISA5TAB8 PO
[2022-08-01] MEDS ORDERED: MIDAZOLAM 5 MG/5 ML (VERSED) VIAL IVP ONE (18:45)
[2022-08-01] MEDS ORDERED: NS IV 500 ML 500 ML IV ONE (18:45)
[2022-08-01 18:47] LABS: BASOPHILS % (AUTO) 1 % (0-10); EOSINOPHILS % (AUTO) 1 % (0-10); HEMATOCRIT 33 % (35-52); HEMOGLOBIN 10.5 g/dL (11.5-16.0); LYMPHOCYTES # (AUTO) 0.9 10^3/uL (1.0-4.0); LYMPHOCYTES % (AUTO) 19 % (12-44); MEAN CORPUSCULAR HEMOGLOBIN 29 pg (25-34); MEAN CORPUSCULAR HGB CONC 32 g/dL (32-36); MEAN CORPUSCULAR VOLUME 91 fL (80-99); MEAN PLATELET VOLUME 9.6 fL (9.0-12.2); MONOCYTES # (AUTO) 0.4 10^3/uL (0.0-1.0); MONOCYTES % (AUTO) 9 % (0-12); NEUTROPHILS # (AUTO) 3.3 10^3/uL (1.8-7.8); NEUTROPHILS % (AUTO) 70 % (42-75); PLATELET COUNT 289 10^3/uL (130-400); WHITE BLOOD COUNT 4.7 10^3/uL (4.3-11.0)
[2022-08-01 18:56] LABS: BILIRUBIN,URINE NEGATIVE (NEGATIVE); CLARITY,URINE CLEAR; COLOR,URINE YELLOW; GLUCOSE, URINE (UA) NEGATIVE (NEGATIVE); KETONES,URINE NEGATIVE (NEGATIVE); LEUKOCYTE ESTERASE ,URINE NEGATIVE (NEGATIVE); NITRITE,URINE POSITIVE (NEGATIVE); PH,URINE 5.5 (5-9); PROTEIN,URINE TRACE (NEGATIVE)
[2022-08-01 18:58] LABS: ALBUMIN 3.3 GM/DL (3.2-4.5); POTASSIUM 3.3 MMOL/L (3.6-5.0)
[2022-08-01 18:59] LABS: CALCIUM 8.4 MG/DL (8.5-10.1)
[2022-08-01 19:02] LABS: BILIRUBIN,TOTAL 0.2 MG/DL (0.1-1.0)
[2022-08-01 19:04] LABS: CREATININE SERUM 0.74 MG/DL (0.60-1.30)
[2022-08-01 19:06] LABS: BACTERIA,URINE LARGE /HPF
--- NOTE | 2022-08-01 19:13 | Diagnostic Imaging Report ---
INDICATION: Abdominal pain. FINDINGS: The bowel gas pattern is nonspecific. There are no abnormal abdominal calcifications. There are degenerative changes in the spine. IMPRESSION: Nonspecific bowel gas pattern. Dictated by: Dictated on workstation # [id number]
--- NOTE | 2022-08-01 19:16 | ED Neurological Problem ---
General Chief Complaint: Neurological Problems Stated Complaint: SEIZURE Nursing Triage Note: PT TO RM 7 BY EMS WITH C/O SEIZURES X3 TODAY AT HOME. SEIZURES WERE WITNESSED. PT ALSO BEGAN SEIZING WHILE TRANSFERING TO THE BED FROM EMS COT Source: old records, caregiver Exam Limitations: clinical condition History of Present Illness Date Seen by Provider: Aug 01, 2022 Time Seen by Provider: 18:10 Initial Comments This 67-year-old woman presents to the emergency room via EMS with primary complaint of increased seizure activity. She has had 4 seizure episodes in the last 30 minutes. Her last seizure episode occurred when she arrived to the emergency room and lasted for about 5 minutes. During that episode she was not responsive to staff and had upper body convulsions. Staff from [facility] state that her seizures usually involve minimal convulsions and generally consist of brief loss of consciousness and drooling for about 30 seconds. This seizures she experienced today are more unusual. She was recently prescribed medication for a cough on July 27 including azithromycin and promethazine with codeine. She continues to have a coarse cough in the emergency room. She has had no fevers and no other signs or symptoms of acute infectious illness according to staff. Staff reported she was crying earlier today and holding her head as though she had a headache. She did present to Dr. Sosa's office earlier today and no significant abnormalities or diagnoses were added. Patient is nonverbal. She is ambulatory. She has history of seizures and heart disease . Patient's seizure that was occurring on arrival resolved within seconds of receiving Versed 2.5 mg IV. She normally takes Keppra 750 mg in the morning and 500 mg in the evening. She has not yet had her evening dose. It was noted in review of medication adverse effects, that Phenergan with codeine can predispose to seizure activity. Last seizure was May 05, 2022. Allergies and Home Medications Allergies Coded Allergies: No Known Drug Allergies (Unverified , 12/27/16) Patient Home Medication List Home Medication List Reviewed: Yes Acetaminophen (Tylenol) 325 Mg Tablet, 650 MG PO Q4H PRN for PAIN-MILD, (Reported) Entered as Reported by: BILL MCCLELLAND on 09/26/17 1039 Bisacodyl (Bisacodyl) 5 Mg Tablet.dr, 10 MG PO MoWeFr@2100, (Reported) Entered as Reported by: BILL MCCLELLAND on 09/05/18 0911 Cephalexin (Cephalexin) 500 Mg Tablet, 500 MG PO QID Prescribed by: ADELAIDE FARRIS on 08/27/19 1004 Clonazepam (Clonazepam) 2 Mg Tablet, 2 MG PO HS, (Reported) Entered as Reported by: LENA BOGGS on 09/25/172003 Docusate Calcium (Stool Softener) 240 Mg Capsule, 240 MG PO DAILY, (Reported) Entered as Reported by: LENA BOGGS on 09/25/172003 Hydrocodone/Acetaminophen (Hydrocodone-Acetamin 5-325 mg) 1 Each Tablet, 1 TAB PO Q6H PRN for PAIN-MODERATE (5-7) Prescribed by: AMBER RUVALCABA on 04/24/21 1134 Levetiracetam (Levetiracetam) 500 Mg Tablet, 500 MG PO BID Prescribed by: JOSE MALAVE on 09/05/18 1324 Loratadine (Loratadine) 10 Mg Tablet, 10 MG PO DAILY, (Reported) Entered as Reported by: BILL MCCLELLAND on 09/26/17 1039 Magnesium Hydroxide (Milk of Magnesia) 400 Mg/5 Ml Oral.susp, 30 ML PO DAILY PRN for CONSTIPATION-7TH LINE, (Reported) Entered as Reported by: BILL MCCLELLAND on 09/26/17 1039 Multivitamin (Multivitamins) 1 Each Tablet, 1 TAB PO DAILY, (Reported) Entered as Reported by: BILL MCCLELLAND on 09/05/18 0911 Sennosides/Docusate Sodium (Senna S Tablet) 1 Each Tablet, 1 TAB PO DAILY, (Reported) Entered as Reported by: BILL MCCLELLAND on 09/05/18 0911 Review of Systems Review of Systems Constitutional: see HPI Eyes: No Symptoms Reported Ears, Nose, Mouth, Throat: no symptoms reported Respiratory: no symptoms reported Cardiovascular: no symptoms reported Gastrointestinal: no symptoms reported Genitourinary: no symptoms reported Musculoskeletal: no symptoms reported Skin: no symptoms reported Psychiatric/Neurological: See HPI Endocrine: No Symptoms Reported Hematologic/Lymphatic: No Symptoms Reported Past Bkhecjp-[id number]-Pbdzbt Hx Patient Social History Tobacco Use?: No Use of E-Cig and/or Vaping dev: No Substance use?: No Alcohol Use?: No Pt feels they are or have been: No Immunizations Up To Date Tetanus Booster (TDap): Unknown First/Initial COVID19 Vaccinat: AUGUST 2020 Second COVID19 Vaccination Ezra: SEPTEMBER 2020 Seasonal Allergies Seasonal Allergies: Yes Past Medical History Surgery/Hospitalization HX: SEIZURES Surgeries: Yes (RT EYE) Respiratory: No Cardiac: Yes (PVC'S) Neurological: Yes Developmental Disorder (Nonverbal), Seizure Disorder Reproductive Disorders: No Genitourinary: No Gastrointestinal: Yes (nausea) Chronic Constipation Musculoskeletal: No Endocrine: No HEENT: No Cancer: No Psychosocial: Yes (AUTISM,OCD,INTELLECTUAL DISORDER) Anxiety, Bipolar Integumentary: No Blood Disorders: No Family Medical History Seizure disorder twin sister Physical Exam Vital Signs Vital Signs - First Documented 08/01/22 18:10 Temp 36.6 Pulse 81 Resp 20 B/P (MAP) 148/84 (105) Capillary Refill : Height, Weight, BMI Height: 5'6.00" Weight: 145lbs. 0.0oz. 65.905835ic; 21.00 BMI Method:Estimated General Appearance: WD/WN, other (Nonresponsive with upper body convulsions on initial exam) HEENT: PERRL/EOMI, normal ENT inspection, other (adentulous. Left ear cerumen impaction) Neck: normal inspection Respiratory: lungs clear, normal breath sounds, no respiratory distress Cardiovascular: regular rate, rhythm, no edema, no murmur Gastrointestinal: soft; No distended Extremities: non-tender, normal inspection, no pedal edema Neurologic/Psychiatric: other (Initially not responsive and convulsing in the upper extremities. Later, alert and responsive. Nonverbal at baseline) Crainal Nerves: PERRL Motor/Sensory: no motor deficit Skin: normal color, warm/dry Focused Exam Lactate Level 08/01/22 18:24: Lactic Acid Level 3.39*H Lactic Acid Level Laboratory Tests Test 08/01/22 18:24 Lactic Acid Level 3.39 MMOL/L (0.50-2.00) *H Procedures/Interventions Suture Size: 5-0 Progress/Results/Core Measures Results/Orders Lab Results Laboratory Tests Test 08/01/22 18:24 08/01/22 18:40 08/01/22 18:48 Range/Units Lactic Acid Level 3.39 *H 0.50-2.00 MMOL/L Influenza Type A (RT-PCR) Not Detected Not Detecte Influenza Type B (RT-PCR) Not Detected Not Detecte SARS-CoV-2 RNA (RT-PCR) Not Detected Not Detecte White Blood Count 4.7 4.3-11.0 10^3/uL Red Blood Count 3.59 L 3.80-5.11 10^6/uL Hemoglobin 10.5 L 11.5-16.0 g/dL Hematocrit 33 L 35-52 % Mean Corpuscular Volume 91 80-99 fL Mean Corpuscular Hemoglobin 29 25-34 pg Mean Corpuscular Hemoglobin Concent 32 32-36 g/dL Red Cell Distribution Width 13.5 10.0-14.5 % Platelet Count 289 130-400 10^3/uL Mean Platelet Volume 9.6 9.0-12.2 fL Immature Granulocyte % (Auto) 1 % Neutrophils (%) (Auto) 70 42-75 % Lymphocytes (%) (Auto) 19 12-44 % Monocytes (%) (Auto) 9 0-12 % Eosinophils (%) (Auto) 1 0-10 % Basophils (%) (Auto) 1 0-10 % Neutrophils # (Auto) 3.3 1.8-7.8 10^3/uL Lymphocytes # (Auto) 0.9 L 1.0-4.0 10^3/uL Monocytes # (Auto) 0.4 0.0-1.0 10^3/uL Eosinophils # (Auto) 0.0 0.0-0.3 10^3/uL Basophils # (Auto) 0.0 0.0-0.1 10^3/uL Immature Granulocyte # (Auto) 0.1 0.0-0.1 10^3/uL Prothrombin Time 14.5 12.2-14.7 SEC INR Comment 1.1 0.8-1.4 Activated Partial Thromboplast Time 31 24-35 SEC Sodium Level 145 135-145 MMOL/L Potassium Level 3.3 L 3.6-5.0 MMOL/L Chloride Level 110 H 98-107 MMOL/L Carbon Dioxide Level 25 21-32 MMOL/L Anion Gap 10 5-14 MMOL/L Blood Urea Nitrogen 21 H 7-18 MG/DL Creatinine 0.74 0.60-1.30 MG/DL Estimat Glomerular Filtration Rate 88 BUN/Creatinine Ratio 28 Glucose Level 102 70-105 MG/DL Calcium Level 8.4 L 8.5-10.1 MG/DL Corrected Calcium 9.0 8.5-10.1 MG/DL Magnesium Level 2.0 1.6-2.4 MG/DL Total Bilirubin 0.2 0.1-1.0 MG/DL Aspartate Amino Transf (AST/SGOT) 22 5-34 U/L Alanine Aminotransferase (ALT/SGPT) 27 0-55 U/L Alkaline Phosphatase 93 40-136 U/L Total Creatine Kinase 135 29-168 U/L C-Reactive Protein High Sensitivity 0.81 H 0.00-0.50 MG/DL Total Protein 7.0 6.4-8.2 GM/DL Albumin 3.3 3.2-4.5 GM/DL TSH [place] Testing 1.92 0.35-4.94 UIU/ML Urine Color YELLOW Urine Clarity CLEAR Urine pH 5.5 5-9 Urine Specific [place] >=1.030 1.016-1.022 Urine Protein TRACE H NEGATIVE Urine Glucose (UA) NEGATIVE NEGATIVE Urine Ketones NEGATIVE NEGATIVE Urine Nitrite POSITIVE H NEGATIVE Urine Bilirubin NEGATIVE NEGATIVE Urine Urobilinogen 1.0 < = 1.0 MG/DL Urine Leukocyte Esterase NEGATIVE NEGATIVE Urine RBC (Auto) NEGATIVE NEGATIVE Urine RBC 2-5 H /HPF Urine WBC 2-5 /HPF Urine Squamous Epithelial Cells 2-5 /HPF Urine Crystals NONE /LPF Urine Bacteria LARGE H /HPF Urine Casts NONE /LPF Urine Mucus NEGATIVE /LPF Urine Culture Indicated YES My Orders Orders - KHANG GRECO MD Midazolam Injection (Versed Injection) (08/01/22 18:45) Levetiracetam Injection (Keppra Injectio (08/01/22 18:33) Cbc With Automated Diff (08/01/22 18:33) Comprehensive Metabolic Panel (08/01/22 18:33) Creatine Kinase (08/01/22 18:33) Hs C Reactive Protein (08/01/22 18:33) Magnesium (08/01/22 18:33) Thyroid Analyzer (08/01/22 18:33) Ua Culture If Indicated (08/01/22 18:33) Ed Iv/Invasive Line Start (08/01/22 18:33) Covid 19 Inhouse Test (08/01/22 18:33) Influenza A And B By Pcr (08/01/22 18:33) Chest 1 View, Ap/Pa Only (08/01/22 18:33) Abdomen/Kub 1view (08/01/22 18:33) Ns Iv 500 Ml (Sodium Chloride 0.9%) (08/01/22 18:45) Lactic Acid Analyzer (08/01/22 18:36) Urine Culture (08/01/22 18:48) Blood Culture (08/01/22 19:31) Sputum Culture (08/01/22 19:31) Protime With Inr (08/01/22 19:31) Partial Thromboplastin Time (08/01/22 19:31) Vital Signs Adult Sepsis Patie Q15M (08/01/22 19:31) Remove Rings In Anticipation O (08/01/22 19:31) Ceftriaxone 1 Gm Pre-Mix (Rocephin 1 Gm (08/01/22 19:32) Medications Given in ED Vital Signs/I&O 08/01/22 18:10 Temp 36.6 Pulse 81 Resp 20 B/P (MAP) 148/84 (105) 08/02/22 00:00 Intake Total 150 ml Balance 150 ml Blood Pressure Mean: 105 Progress Progress Note : Progress Note Patient had 4 seizures in approximately 30 minutes which is highly unusual for her. Also, the nature of her seizures was different from baseline. On work-up she was found to have some suggestion of urinary tract infection and pneumonia. Antibiotics were initiated with Rocephin by IV route in the ER. Because of her usual seizure behavior and possible failure of pneumonia treatment as an outpatient, admission to the hospital is being sought. Patient returned to baseline behavior prior to admission. She received Keppra 1000 mg IV while in the ER after the initial Versed dose. I discussed CODE STATUS with the facility staff. They report she is full code. Diagnostic Imaging Diagonstic Imaging: Xray Plain Films/CT/US/NM/MRI: chest Comments Chest x-ray viewed by me. Right lower lobe infiltrate appreciated by my interpretation. Radiologist interpretation reviewed as well as below: NAME: ARIELLE HUBBRAD [facility] REC#: [id number] PT STATUS: REG ER : 1955 PHYSICIAN: KHANG GRECO MD ADMIT DATE: 08/01/22/ER Draft Date of Exam:08/01/22 CHEST 1 VIEW, AP/PA ONLY INDICATION: Cough and seizure. Comparison is made with prior examination of 09/29/2017. FINDINGS: There is cardiomegaly. There is right basilar infiltrate. There is no pleural effusion or pneumothorax. The mediastinum is unremarkable. IMPRESSION: Cardiomegaly and a right basilar infiltrate. Dictated on workstation # [id number] Dict: 08/01/221910 Trans: 08/01/221914 STEFFANIE [phone] Interpreted by: LUPE DAWKINS MD Diagonstic Imaging: Xray Plain Films/CT/US/NM/MRI: abdomen, pelvis Comments Abdominal x-ray viewed by me. There is prominent bowel gas without obvious obstruction. No significant stool burden noted. Radiologist report reviewed. See report below: NAME: ARIELLE HUBBARD [facility] REC#: [id number] PT STATUS: REG ER : 1955 PHYSICIAN: KHANG GRECO MD ADMIT DATE: 08/01/22/ER Draft Date of Exam:08/01/22 ABDOMEN/KUB 1VIEW INDICATION: Abdominal pain. FINDINGS: The bowel gas pattern is nonspecific. There are no abnormal abdominal calcifications. There are degenerative changes in the spine. IMPRESSION: Nonspecific bowel gas pattern. Dictated on workstation # [id number] Dict: 08/01/221911 Trans: 08/01/221912 STEFFANIE [id number] Interpreted by: LUPE DAWKINS MD Departure Communication (Admissions) Time/Spoke to Admitting Phy: 20:40 Dr. Fraser Impression Primary Impression: Right lower lobe pneumonia Qualified Codes: J18.9 - Pneumonia, unspecified organism Additional Impressions: Increasing frequency of seizure activity Left ear impacted cerumen Urinary tract infection Qualified Codes: N39.0 - Urinary tract infection, site not specified Disposition: ADMITTED INPATIENT Condition: Improved Admissions Decision to Admit Reason: Admit from ER (General) Decision to Admit/Date: Aug 01, 2022 Time/Decision to Admit Time: 20:40 Departure-Patient Inst. Referrals: EVE SOSA DO (PCP/Family) Primary Care Physician KHANG GRECO MD Aug 01, 2022 19:16
[2022-08-01 19:28] LABS: TSH (THYROID ANALYZER) 1.92 UIU/ML (0.35-4.94)
[2022-08-01] MEDS ORDERED: cefTRIAXone 1 GM PRE-MIX 50 ML IV STA (19:32)
[2022-08-01 19:46] LABS: INR 1.1 (0.8-1.4); PROTHROMBIN TIME PATIENT 14.5 SEC (12.2-14.7)
[2022-08-01 21:30] VITALS: BP 103/85
[2022-08-01] MEDS ORDERED: D5 1/2 NS W/KCL 20 MEQ/L 1,000 ML IV ONE (21:37)
[2022-08-01 21:58] VITALS: BP 101/71
[2022-08-01] MEDS ORDERED: MIDAZOLAM 5 MG/5 ML (VERSED) VIAL IVP PRN (23:00)
[2022-08-01] MEDS ORDERED: cefTRIAXone 1 GM IV (PRE-MIX) 50 ML IV SCH (23:00)
[2022-08-01] MEDS ORDERED: ONDANSETRON 4 MG/2 ML (SDV) Z0FRAN IV PRN (23:00)
[2022-08-02] VITALS (7 sets, daily range): BP systolic 90–157; BP diastolic 61–84
[2022-08-02] MEDS: D5 1/2 NS W/KCL 20 MEQ/L 1,000 ML IV SCH ×3 (01:03→20:35)
[2022-08-02] MEDS: LORazepam INJ 2 MG/ML (ATIVAN) VIAL IVP PRN ×2 (04:40→04:45)
[2022-08-02 05:41] LABS: BASOPHILS % (AUTO) 1 % (0-10); EOSINOPHILS # (AUTO) 0.1 10^3/uL (0.0-0.3); EOSINOPHILS % (AUTO) 2 % (0-10); HEMATOCRIT 32 % (35-52); HEMOGLOBIN 10.3 g/dL (11.5-16.0); LYMPHOCYTES % (AUTO) 14 % (12-44); MEAN CORPUSCULAR HEMOGLOBIN 29 pg (25-34); MEAN CORPUSCULAR HGB CONC 32 g/dL (32-36); MEAN CORPUSCULAR VOLUME 90 fL (80-99); MONOCYTES # (AUTO) 0.6 10^3/uL (0.0-1.0); MONOCYTES % (AUTO) 9 % (0-12); NEUTROPHILS # (AUTO) 5.5 10^3/uL (1.8-7.8); NEUTROPHILS % (AUTO) 75 % (42-75); PLATELET COUNT 294 10^3/uL (130-400); WHITE BLOOD COUNT 7.3 10^3/uL (4.3-11.0)
[2022-08-02 05:56] LABS: CALCIUM 8.2 MG/DL (8.5-10.1); CREATININE SERUM 0.67 MG/DL (0.60-1.30); POTASSIUM 3.3 MMOL/L (3.6-5.0)
--- NOTE | 2022-08-02 11:45 | Progress Note ---
CONRADO NIX 08/02/22 1145: Subjective Date Seen by a Provider: Aug 02, 2022 Time Seen by a Provider: 10:50 Subjective/Events-last exam History is obtained from records due to patient being nonverbal. Patient is a 67-year-old female with a history of seizure disorder and intellectual disability. Per staff at [facility], her seizures usually have minimal convulsions and a brief loss of consciousness lasting around 30 seconds. Yesterday, staff witnessed her have three seizures and she was then brought to the ED via EMS while transferring to the bed, she began to have another seizure, this time lasting five minutes during which she was non-responsive and had convulsions of the upper extremities. This seizure ended shortly after the patient was given 2.5 mg Versed IV. She had another seizure last night starting at 4:36 that lasted for eleven minutes but stopped after an additional 1 mg of ativan. [facility] staff reoprt that yesterday before her seizures began she was holding her hands on her head and crying as if she had a headache. The patient was given azithromycin and phenergan with codeine on 07/27 for a cough which has persisted. Urinalysis revealed a UTI with a preliminary culture growing gram negative rods. Focused Exam Lactate Level 08/01/22 18:24: Lactic Acid Level 3.39*H Objective Exam Last Set of Vital Signs Vital Signs Date Time Temp Pulse Resp B/P (MAP) Pulse Ox O2 Delivery O2 Flow Rate FiO2 08/02/22 08:00 37.0 67 18 129/70 (89) 96 Room Air Capillary Refill : I&O Intake and Output 08/02/22 00:00 Intake Total 650 ml Balance 650 ml IV Total 650 ml Daily Weight Change Unsure Results Lab Laboratory Tests 08/01/22 18:24: Lactic Acid Level 3.39*H, Influenza Type A (RT-PCR) Not Detected, Influenza Type B (RT-PCR) Not Detected, SARS-CoV-2 RNA (RT-PCR) Not Detected 08/01/22 18:40: White Blood Count 4.7, Red Blood Count 3.59L, Hemoglobin 10.5L, Hematocrit 33L, Mean Corpuscular Volume 91, Mean Corpuscular Hemoglobin 29, Mean Corpuscular Hemoglobin Concent 32, Red Cell Distribution Width 13.5, Platelet Count 289, Mean Platelet Volume 9.6, Immature Granulocyte % (Auto) 1, Neutrophils (%) (Auto) 70, Lymphocytes (%) (Auto) 19, Monocytes (%) (Auto) 9, Eosinophils (%) (Auto) 1, Basophils (%) (Auto) 1, Neutrophils # (Auto) 3.3, Lymphocytes # (Auto) 0.9L, Monocytes # (Auto) 0.4, Eosinophils # (Auto) 0.0, Basophils # (Auto) 0.0, Immature Granulocyte # (Auto) 0.1, Prothrombin Time 14.5, INR Comment 1.1, Activated Partial Thromboplast Time 31, Sodium Level 145, Potassium Level 3.3L, Chloride Level 110H, Carbon Dioxide Level 25, Anion Gap 10, Blood Urea Nitrogen 21H, Creatinine 0.74, Estimat Glomerular Filtration Rate 88, BUN/Creatinine Ratio 28, Glucose Level 102, Calcium Level 8.4L, Corrected Calcium 9.0, Magnesium Level 2.0, Total Bilirubin 0.2, Aspartate Amino Transf (AST/SGOT) 22, Alanine Aminotransferase (ALT/SGPT) 27, Alkaline Phosphatase 93, Total Creatine Kinase 135, C-Reactive Protein High Sensitivity 0.81H, Total Protein 7.0, Albumin 3.3, TSH [place] Testing 1.92 08/01/22 18:48: Urine Color YELLOW, Urine Clarity CLEAR, Urine pH 5.5, Urine Specific [place] >=1.030, Urine Protein TRACEH, Urine Glucose (UA) NEGATIVE, Urine Ketones NEGATIVE, Urine Nitrite POSITIVEH, Urine Bilirubin NEGATIVE, Urine Urobilinogen 1.0, Urine Leukocyte Esterase NEGATIVE, Urine RBC (Auto) NEGATIVE, Urine RBC 2- 5H, Urine WBC 2-5, Urine Squamous Epithelial Cells 2-5, Urine Crystals NONE, Urine Bacteria LARGEH, Urine Casts NONE, Urine Mucus NEGATIVE, Urine Culture Indicated YES 08/02/22 05:20: White Blood Count 7.3, Red Blood Count 3.56L, Hemoglobin 10.3L, Hematocrit 32L, Mean Corpuscular Volume 90, Mean Corpuscular Hemoglobin 29, Mean Corpuscular Hemoglobin Concent 32, Red Cell Distribution Width 13.3, Platelet Count 294, Mean Platelet Volume 10.0, Immature Granulocyte % (Auto) 0, Neutrophils (%) (Auto) 75, Lymphocytes (%) (Auto) 14, Monocytes (%) (Auto) 9, Eosinophils (%) (Auto) 2, Basophils (%) (Auto) 1, Neutrophils # (Auto) 5.5, Lymphocytes # (Auto) 1.0, Monocytes # (Auto) 0.6, Eosinophils # (Auto) 0.1, Basophils # (Auto) 0.0, Immature Granulocyte # (Auto) 0.0, Sodium Level 140, Potassium Level 3.3L, Chloride Level 110H, Carbon Dioxide Level 21, Anion Gap 9, Blood Urea Nitrogen 16, Creatinine 0.67, Estimat Glomerular Filtration Rate 95, BUN/Creatinine Ratio 24, Glucose Level 116H, Calcium Level 8.2L, C-Reactive Protein High Sensitivity 0.62H Microbiology 08/01/22 Urine Culture - Preliminary, Resulted Gram Negative Emigdio 08/03/22 1551: CONRADO NIX Aug 02, 2022 11:45 ,JunAug 03, 2022 15:51
--- NOTE | 2022-08-02 11:54 | History & Physical ---
CONRADO NIX 08/02/22 1154: History of Present Illness History of Present Illness Reason for visit/HPI History is obtained from records due to patient being nonverbal. Patient is a 67-year-old female with a history of seizure disorder and intellectual disability. Per staff at [facility], her seizures usually have minimal convu lsions and a brief loss of consciousness lasting around 30 seconds. Yesterday, staff witnessed her have three seizures and she was then brought to the ED via EMS while transferring to the bed, she began to have another seizure, this time lasting five minutes during which she was non-responsive and had convulsions of the upper extremities. This seizure ended shortly after the patient was given 2.5 mg Versed IV. She had another seizure last night starting at 4:36 that lasted for eleven minutes but stopped after an additional 1 mg of ativan. [facility] staff reoprt that yesterday before her seizures began she was holding her hands on her head and crying as if she had a headache. THe patient was seen by her PCP Dr. Fuentes earlier in the day and had no medication changes or new diagnoses. The patient was given azithromycin and phenergan with codeine on 07/27 for a cough which has persisted. Urinalysis revealed a UTI with a preliminary culture growing gram negative rods. When seen initially, the patient was still asleep, and was startled upon waking up. The patient appears slightly agitated this morning and is unable to respond to questions. Date of Admission Aug 01, 2022 at 20:40 Date Seen by a Provider: Aug 02, 2022 Time Seen by a Provider: 10:40 I consulted on this patient on 08/02/22 11:48 Attending Physician Jarvis Will DO Admitting Physician Admitting Physician: Latrell Fraser MD Attending Physician: Latrell Fraser MD Consult Allergies and Home Medications Allergies Coded Allergies: No Known Drug Allergies (Unverified , 12/27/16) Patient Home Medication List Home Medication List Reviewed: Yes Acetaminophen (Tylenol) 325 Mg Tablet, 325 MG PO Q4H PRN for PAIN-MILD (1-4), (Reported) Entered as Reported by: BILL MCCLELLAND on 09/26/17 1039 Last Action: Held Bisacodyl (Bisacodyl) 5 Mg Tablet.dr, 10 MG PO MO,WE,FR @HS, (Reported) Entered as Reported by: BILL MCCLELLAND on 09/05/18 09 Last Action: Continued Cephalexin (Cephalexin) 500 Mg Tablet, 500 MG PO BID Prescribed by: MAU VILLAFANA on 08/04/22 1237 Clonazepam (Clonazepam) 2 Mg Tablet, 2 MG PO HS, (Reported) Entered as Reported by: LENA BOGGS on 09/25/172003 Last Action: Converted Docusate Calcium (Docusate Calcium) 240 Mg Capsule, 240 MG PO DAILY, (Reported) Entered as Reported by: MADDY QUINN on 08/02/22 143 Last Action: Continued Levetiracetam (Levetiracetam) 1,000 Mg Tablet, 1,000 MG PO BID Prescribed by: MAU VILLAFANA on 08/04/22 1237 Loratadine (Loratadine) 10 Mg Tablet, 10 MG PO DAILY, (Reported) Entered as Reported by: BILL MCCLELLAND on 09/26/17 1039 Last Action: Continued Magnesium Hydroxide (Milk of Magnesia) 400 Mg/5 Ml Oral.susp, 30 ML PO DAILY PRN for CONSTIPATION-7TH LINE, (Reported) Entered as Reported by: BILL MCCLELLAND on 09/26/17 103 Last Action: Continued Montelukast Sodium (Montelukast Sodium) 10 Mg Tablet, 10 MG PO DAILY, (Reported) Entered as Reported by: MADDY QUINN on 08/02/22 143 Last Action: Continued Multivitamin (Multivitamins) 1 Each Tablet, 1 TAB PO DAILY, (Reported) Entered as Reported by: BILL MCCLELLAND on 09/05/18 09 Last Action: Held Discontinued Medications Cephalexin (Cephalexin) 500 Mg Tablet, 500 MG PO QID Discontinued Reason: No Longer Taking Prescribed by: ADELAIDE FARRIS on 08/27/19 1004 Last Action: Discontinued Docusate Calcium (Stool Softener) 240 Mg Capsule, 240 MG PO DAILY, (Reported) Discontinued Reason: Duplicate Order Entered as Reported by: LENA BOGGS on 09/25/172003 Last Action: Discontinued Ferrous Sulfate (Ferosul) 325 Mg (65 Mg Iron) Tablet, 325 MG PO BID, (Reported) Entered as Reported by: MADDY QUINN on 2/7/1429 Last Action: Held Hydrocodone/Acetaminophen (Hydrocodone-Acetamin 5-325 mg) 1 Each Tablet, 1 TAB PO Q6H PRN for PAIN-MODERATE (5-7) Discontinued Reason: No Longer Taking Prescribed by: AMBER RUVALCABA on 04/24/21 1134 Last Action: Discontinued Levetiracetam (Levetiracetam) 750 Mg Tablet, 750 MG PO DAILY, (Reported) Entered as Reported by: MADDY QUINN on 08/02/221429 Last Action: Held Levetiracetam (Levetiracetam) 500 Mg Tablet, 500 MG PO HS, (Reported) Entered as Reported by: MADDY QUINN on 08/02/221429 Last Action: Held Promethazine HCl/Codeine (Prometh-Codein 6.25-10 mg/5 ml) 6.25 Mg-10 Mg/5 Ml (5 Ml) Syrup, 7.5 ML PO Q8H PRN for COUGH, (Reported) Entered as Reported by: MADDY QUINN on 08/02/221429 Last Action: Held Sennosides/Docusate Sodium (Senna S Tablet) 1 Each Tablet, 1 TAB PO DAILY, (Reported) Discontinued Reason: No Longer Taking Entered as Reported by: BILL MCCLELLAND on 09/05/18 0911 Last Action: Discontinued Past Eplrtts-Rtopkf-Jwtugy Hx Patient Social History Marrital Status: single Employed/Student: unemployed Tobacco Use?: No Smoking Status: Unknown if Ever Smoked Smokeless Tobacco Frequency: Unknown if Ever Used Use of E-Cig and/or Vaping dev: No Use of E-Cig and/or Vaping Edgar: Unknown if Ever Used Substance use?: No Alcohol Use?: Unable to obtain Pt feels they are or have been: Unable to obtain Immunizations Up To Date Date of Influenza Vaccine: May 29, 2019 First/Initial COVID19 Vaccinat: AUGUST 2020 Second COVID19 Vaccination Ezra: SEPTEMBER 2020 Tetanus Booster (TDap): Unknown Seasonal Allergies Seasonal Allergies: Yes Current Status status: No status: No Advance Directives: Unable to obtain Communicates: Unable To Communicate Primary Language: Croatian Preferred Spoken Language: Croatian Is interpretation needed?: No Sensory deficits: Speech impairment Implanted or Applied Medical D: None Past Medical History Developmental Disorder (Nonverbal), Seizure Disorder Chronic Constipation Anxiety, Bipolar Blood Disorders: No Family Medical History Seizure disorder twin sister Review of Systems ROS-Unable to Obtain: Nonverbal Physical Exam Vital Signs Vital Signs - First Documented 08/01/22 18:10 Temp 36.6 Pulse 81 Resp 20 B/P (MAP) 148/84 (105) Capillary Refill : Height, Weight, BMI Height: 5'6.00" Weight: 145lbs. 0.0oz. 65.850992st; 17.53 BMI Method:Estimated General Appearance: Mild Distress, Thin Neck: Non Tender, Supple Respiratory: Lungs Clear, No Accessory Muscle Use, No Respiratory Distress Cardiovascular: No Edema, Normal Peripheral Pulses Gastrointestinal: Non Tender, Soft Rectal: Deferred Back: No Vertebral Tenderness Neurologic/Psychiatric: Alert, Disoriented, Other (intellectual disability - nonverbal) Skin: Normal Color, Warm/Dry Lymphatic: No Adenopathy Assessment/Plan Assessment and Plan Seizure disorder Discontinue phenergan due to increased seizure risk Continue Keppra at 1,000mg BID 1mg Ativan PRN for seizures Telesitter for monitoring Starting on liquid diet UTI Preliminary culture shows gram negative maria victoria Awaiting sensitivities RLL Pneumonia Started a round of azithromycin on 07/27 Possible aspiration pneumonia Will call [facility] for more information Anemia 10.3 today, from 10.5 yesterday Continue to trend and track hemoglobin Hypokalemia Continue IV KCl/dextrose/NaCl Intellectual disability Telesitter for monitoring MAU VILLAFANA MD 08/02/22 1530: Allergies and Home Medications Allergies Coded Allergies: No Known Drug Allergies (Unverified , 12/27/16) Patient Home Medication List Acetaminophen (Tylenol) 325 Mg Tablet, 325 MG PO Q4H PRN for PAIN-MILD (1-4), (Reported) Entered as Reported by: BILL MCCLELLAND on 09/26/17 1039 Last Action: Held Bisacodyl (Bisacodyl) 5 Mg Tablet.dr, 10 MG PO MO,WE,FR @HS, (Reported) Entered as Reported by: BILL MCCLELLAND on 09/05/18 0911 Last Action: Continued Cephalexin (Cephalexin) 500 Mg Tablet, 500 MG PO BID Prescribed by: MAU VILLAFANA on 08/04/22 1237 Clonazepam (Clonazepam) 2 Mg Tablet, 2 MG PO HS, (Reported) Entered as Reported by: LENA BOGGS on 09/25/172003 Last Action: Converted Docusate Calcium (Docusate Calcium) 240 Mg Capsule, 240 MG PO DAILY, (Reported) Entered as Reported by: MADDY QUINN on 08/02/22 143 Last Action: Continued Levetiracetam (Levetiracetam) 1,000 Mg Tablet, 1,000 MG PO BID Prescribed by: MAU VILLAFANA on 08/04/22 1237 Loratadine (Loratadine) 10 Mg Tablet, 10 MG PO DAILY, (Reported) Entered as Reported by: BILL MCCLELLAND on 09/26/17 103 Last Action: Continued Magnesium Hydroxide (Milk of Magnesia) 400 Mg/5 Ml Oral.susp, 30 ML PO DAILY PRN for CONSTIPATION-7TH LINE, (Reported) Entered as Reported by: BILL MCCLELLAND on 09/26/17 1039 Last Action: Continued Montelukast Sodium (Montelukast Sodium) 10 Mg Tablet, 10 MG PO DAILY, (Reported) Entered as Reported by: MADDY QUINN on 08/02/221429 Last Action: Continued Multivitamin (Multivitamins) 1 Each Tablet, 1 TAB PO DAILY, (Reported) Entered as Reported by: BILL MCCLELLAND on 09/05/18 0911 Last Action: Held Discontinued Medications Cephalexin (Cephalexin) 500 Mg Tablet, 500 MG PO QID Discontinued Reason: No Longer Taking Prescribed by: ADELAIDE FARRIS on 08/27/19 1004 Last Action: Discontinued Docusate Calcium (Stool Softener) 240 Mg Capsule, 240 MG PO DAILY, (Reported) Discontinued Reason: Duplicate Order Entered as Reported by: LENA BOGGS on 09/25/172003 Last Action: Discontinued Ferrous Sulfate (Ferosul) 325 Mg (65 Mg Iron) Tablet, 325 MG PO BID, (Reported) Entered as Reported by: MADDY QUINN on 08/02/221429 Last Action: Held Hydrocodone/Acetaminophen (Hydrocodone-Acetamin 5-325 mg) 1 Each Tablet, 1 TAB PO Q6H PRN for PAIN-MODERATE (5-7) Discontinued Reason: No Longer Taking Prescribed by: AMBER RUVALCABA on 04/24/21 1134 Last Action: Discontinued Levetiracetam (Levetiracetam) 750 Mg Tablet, 750 MG PO DAILY, (Reported) Entered as Reported by: MADDY QUINN on 08/02/221429 Last Action: Held Levetiracetam (Levetiracetam) 500 Mg Tablet, 500 MG PO HS, (Reported) Entered as Reported by: MADDY QUINN on 08/02/221429 Last Action: Held Promethazine HCl/Codeine (Prometh-Codein 6.25-10 mg/5 ml) 6.25 Mg-10 Mg/5 Ml (5 Ml) Syrup, 7.5 ML PO Q8H PRN for COUGH, (Reported) Entered as Reported by: MADDY QUINN on 08/02/221429 Last Action: Held Sennosides/Docusate Sodium (Senna S Tablet) 1 Each Tablet, 1 TAB PO DAILY, (Reported) Discontinued Reason: No Longer Taking Entered as Reported by: BILL MCCLELLAND on 09/05/18 0911 Last Action: Discontinued Past Gigyhrw-Qjcdcl-Konlry Hx Family Medical History Seizure disorder twin sister Review of Systems Constitutional: see HPI Assessment/Plan Assessment and Plan Patient admitted with refractory seizures and PNA and UTI after failing outpatient abx. When I saw patient she was on the toilet attempting to have a BM. Will hold home iron as she is quite constipated. Will continue on IV abx and no furhter seizures since this AM. Will keep on seizure precautions. She has at times been somewhat combative and taken IV out or refused meds so will try to get Keppra in patient however she will take it. Admission Diagnosis Admission Status: Inpatient Order (span 2 midnights) Reason for Inpatient Admission: IV abx, failed outpatient management Supervisory-Addendum Brief Verification & Attestation Participated in pt care: history, MDM, physical Personally performed: exam, history, MDM, supervision of care Care discussed with: Medical Student Procedures: n/a Results interpretation: Verified all documentation Verification and Attestation of Medical Student E/M Service A medical student performed and documented this service in my presence. I reviewed and verified all information documented by the medical student and made modifications to such information, when appropriate. I personally performed the physical exam and medical decision making. Mau Villafana, Aug 02, 2022,15:24 CONRADO NIX Aug 02, 2022 11:54 MAU VILLAFANA MD Aug 02, 2022 15:30
[2022-08-02] MEDS ORDERED: MONT-40 PO (14:30)
[2022-08-02] MEDS ORDERED: LEVE500T6 PO (14:30)
[2022-08-02] MEDS ORDERED: DOCU240C24 PO (14:30)
[2022-08-02] MEDS ORDERED: PROM5SYR PO (14:30)
[2022-08-02] MEDS ORDERED: FERR325T24 PO (14:30)
[2022-08-02] MEDS ORDERED: LEVE750T5 PO (14:30)
[2022-08-02] MEDS: cefTRIAXone 1 GM IV (PRE-MIX) 50 ML IV SCH (20:35)
[2022-08-02] MEDS: ACETAMINOPHEN 500 MG TAB (TYLENOL) PO PRN (20:36)
[2022-08-02] MEDS: LORazepam 1 MG (ATIVAN) TAB PO PRN (20:36)
[2022-08-03] VITALS (7 sets, daily range): BP systolic 95–151; BP diastolic 40–90
[2022-08-03] MEDS: LORazepam 1 MG (ATIVAN) TAB PO PRN ×3 (01:58→20:28)
[2022-08-03] MEDS: D5 1/2 NS W/KCL 20 MEQ/L 1,000 ML IV SCH (06:03)
[2022-08-03 08:45] LABS: HEMATOCRIT 34 % (35-52); HEMOGLOBIN 10.9 g/dL (11.5-16.0); MEAN CORPUSCULAR HEMOGLOBIN 29 pg (25-34); MEAN CORPUSCULAR HGB CONC 32 g/dL (32-36); MEAN CORPUSCULAR VOLUME 93 fL (80-99); MEAN PLATELET VOLUME 9.7 fL (9.0-12.2); PLATELET COUNT 318 10^3/uL (130-400); WHITE BLOOD COUNT 6.2 10^3/uL (4.3-11.0)
[2022-08-03 09:35] LABS: POTASSIUM 3.8 MMOL/L (3.6-5.0)
[2022-08-03 09:36] LABS: CALCIUM 8.5 MG/DL (8.5-10.1)
[2022-08-03 09:41] LABS: CREATININE SERUM 0.74 MG/DL (0.60-1.30)
[2022-08-03] MEDS ORDERED: MILK OF MAGNESIA 400 MG/5 ML 30 ML UDC PO PRN (11:00)
--- NOTE | 2022-08-03 12:56 | Progress Note ---
CONRADO NIX 08/03/22 1256: Subjective Date Seen by a Provider: Aug 03, 2022 Time Seen by a Provider: 11:30 Subjective/Events-last exam Patient is awake and alert this morning. They are cooperative and can follow some instructions. Patient was found to have some fecal impaction yesterday which was partially disimpacted by nursing staff. She had 3 recorded BMs yesterday, today she has been passing flatus but has not had a BM. Patient appears to be doing better today compared to yesterday. Focused Exam Lactate Level 08/01/22 18:24: Lactic Acid Level 3.39*H Objective Exam Last Set of Vital Signs Vital Signs Date Time Temp Pulse Resp B/P (MAP) Pulse Ox O2 Delivery O2 Flow Rate FiO2 08/03/22 12:00 36.8 82 18 126/40 (68) 96 Room Air Capillary Refill : I&O Intake and Output 08/03/22 00:00 Intake Total 9210 ml Output Total 500 ml Balance 8710 ml Intake Oral 7160 ml IV Total 2050 ml Output Urine Total 500 ml # Voids 22 # Bowel Movements 3 General: Alert, Cooperative HEENT: Atraumatic, Mucous Memb Moist/Priddy Neck: Supple, No LAD Heart: Regular Rate, No Murmurs Abdomen: Soft, No Masses Extremities: No Edema, Normal Pulses Skin: No Rashes, No Breakdown Neuro: Other (Intellectual disability, nonverbal) Results Lab Laboratory Tests 08/03/22 08:40: White Blood Count 6.2, Red Blood Count 3.72L, Hemoglobin 10.9L, Hematocrit 34L, Mean Corpuscular Volume 93, Mean Corpuscular Hemoglobin 29, Mean Corpuscular Hemoglobin Concent 32, Red Cell Distribution Width 13.3, Platelet Count 318, Mean Platelet Volume 9.7, Sodium Level 141, Potassium Level 3.8, Chloride Level 109H, Carbon Dioxide Level 23, Anion Gap 9, Blood Urea Nitrogen 15, Creatinine 0.74, Estimat Glomerular Filtration Rate 88, BUN/Creatinine Ratio 20, Glucose Level 141H, Calcium Level 8.5 Microbiology 08/01/22 Urine Culture - Preliminary, Resulted Gram Negative Emigdio 08/01/22 Blood Culture - Preliminary, Resulted No growth Assessment/Plan Assessment/Plan Assess & Plan/Chief Complaint Seizure disorder Continue Keppra at 1,000mg BID; Patient has previously sometimes removed her IV or refused oral medications, currently taking her Keppra PO, but may need IV administration if refuses. 1mg Ativan IV PRN for seizures Telesitter for monitoring UTI Preliminary culture shows gram negative emigdio Awaiting sensitivities Continue Rocephin 1g IV daily RLL Pneumonia Failed outpatient azithromycin, started on 2 Possible aspiration pneumonia Anemia 10.9 today, up from 10.3 yesterday Continue to trend and track hemoglobin Hypokalemia Resolved after IV supplementation with 1L of 5% dextrose/4.5% NS with 20meq/l KCl Intellectual disability Telesitter for monitoring Constipation Improved: 3 BMs recorded yesterday Holding home iron Clinical Quality Measures Admission Status Admission Dx Seizure disorder Discontinue phenergan due to increased seizure risk Continue Keppra at 1,000mg BID 1mg Ativan PRN for seizures Telesitter for monitoring Starting on liquid diet UTI Preliminary culture shows gram negative emigdio Awaiting sensitivities RLL Pneumonia Started a round of azithromycin on 07/27 Possible aspiration pneumonia Will call [facility] for more information Anemia 10.3 today, from 10.5 yesterday Continue to trend and track hemoglobin Hypokalemia Continue IV KCl/dextrose/NaCl Intellectual disability Telesitter for monitoring MAU VILLAFANA MD 08/03/22 1434: Assessment/Plan Assessment/Plan Assess & Plan/Chief Complaint Patient doing better today. No further seizures. Sitting in bed on her knees facing the wall but is cooperative with letting me listen to her heart and lungs. RN reports no concerns. Took her oral Keppra today. Continue on abx and hopefully home tomorrow. Supervisory-Addendum Brief Verification & Attestation Participated in pt care: history, MDM, physical Personally performed: exam, history, MDM, supervision of care Care discussed with: Medical Student Procedures: n/a Results interpretation: Verified all documentation Verification and Attestation of Medical Student E/M Service A medical student performed and documented this service in my presence. I r eviewed and verified all information documented by the medical student and made modifications to such information, when appropriate. I personally performed the physical exam and medical decision making. Mau Villafana, Aug 03, 2022,14:24 CONRADO NIX Aug 03, 2022 12:56 MAU VILLAFANA MD Aug 03, 2022 14:34
[2022-08-03] MEDS: ACETAMINOPHEN 500 MG TAB (TYLENOL) PO PRN ×2 (14:00→20:29)
[2022-08-03] MEDS: cefTRIAXone 1 GM IV (PRE-MIX) 50 ML IV SCH (20:25)
[2022-08-03] MEDS ORDERED: clonazePAM 1 MG (KlonoPIN) TAB PO SCH (21:00)
[2022-08-04 04:00] VITALS: BP 99/60
[2022-08-04] MEDS: LORazepam 1 MG (ATIVAN) TAB PO PRN (05:17)
[2022-08-04] MEDS: ACETAMINOPHEN 500 MG TAB (TYLENOL) PO PRN (05:17)
[2022-08-04 07:27] VITALS: BP 148/85
[2022-08-04] MEDS ORDERED: BISACODYL 5 MG (DULCOLAX) TABLET PO SCH (09:00)
[2022-08-04] MEDS ORDERED: MONTELUKAST 10 MG (SINGULAIR) TAB PO SCH (09:00)
[2022-08-04] MEDS ORDERED: DOCUSATE SODIUM 100 MG (COLACE) CAP PO SCH (09:00)
[2022-08-04] MEDS ORDERED: DOCUSATE CALCIUM 240 MG (SURFAK) CAP PO SCH (09:00)
[2022-08-04] MEDS ORDERED: LORATADINE (CLARITIN) 10 MG TAB PO SCH (09:00)
[2022-08-04] MEDS ORDERED: LEVE10006 PO (12:37)
[2022-08-04] MEDS ORDERED: CEPH500T PO (12:37)
--- NOTE | 2022-08-04 12:38 | Discharge Inst-Simple/Standard ---
Discharge Inst-Standard Discharge Medications New, Converted or Re-Newed RX: Transmitted to Pharmacy Patient Instructions/Follow Up Plan of Care/Instructions/FU: Please continue to take your medications as written. Please follow up with your primary care doctor to follow up this hospital stay. Activity as Tolerated: Yes Discharge Diet: No Restrictions Return to The Hospital For: Chest pain, seizures, shortness of breath, fever, weakness, if you feel you are getting worse. MAU BUENROSTRO MD Aug 04, 2022 12:37
[2022-08-04 12:40] VITALS: BP 90/50
--- NOTE | 2022-08-04 12:52 | Discharge Summary ---
DINAHCONRADO 08/04/22 1245: Discharge Summary Hospital Course Was the Problem List Reviewed?: Yes Hospital Course Date of Admission: Aug 02, 2022 at 13:47 Admission Diagnosis : Family Physician/Provider: Jarvis Will DO Date of Discharge: 08/04/22 Discharge Diagnosis: [Seizure disorder] Hospital Course: [Patient is a 67-year-old female with a history of seizure disorder and intellectual disability who presented to the ED at [facility] on 08/02 with chief complaint of increased seizures. Per staff at [facility], her seizures usually have minimal convulsions and a brief loss of consciousness lasting aroun d 30 seconds. On 08/02, staff witnessed her have three seizures and she was then brought to the ED via EMS. While transferring to the bed, she began to have another seizure, this time lasting five minutes during which she was non- responsive and had convulsions of the upper extremities. This seizure ended shortly after the patient was given 2.5 mg Versed IV. She had another seizure t hat night that lasted for eleven minutes but stopped after an additional 1 mg of ativan. The patient was started on Keppra 1000 mg BID PO. Patient had no further seizures throughout the course of their stay. On 07/27 the patient was given phenergan and aizthromycin for a cough. The phenergan was discontinued due to the increased risk of seizures. The patient was found to have a RLL pneumonia during her visit and was found to have a UTI which grew a amlcolm- sensitive E. coli and Klebsiella pneumonia resistant to ampicillin only. The patient completed 3 days of Rocephin 1g IV daily during her stay and will be discharged with a 2 day dose of Cephalexin 500mg BID PO. The patient is being discharged today and will return to her halfway.] Labs and Pending Lab Test: Microbiology 08/01/22 Urine Culture - Final, Complete Escherichia coli Klebsiella pneumoniae 08/01/22 Blood Culture - Preliminary, Resulted No growth Home Meds Active Reported Levetiracetam 500 Mg Tablet 500 Mg PO HS Ferosul (Ferrous Sulfate) 325 Mg (65 Mg Iron) Tablet 325 Mg PO BID Levetiracetam 750 Mg Tablet 750 Mg PO DAILY Montelukast Sodium 10 Mg Tablet 10 Mg PO DAILY Prometh-Codein 6.25-10 mg/5 ml (Promethazine HCl/Codeine) 6.25 Mg-10 Mg/5 Ml (5 Ml) Syrup 7.5 Ml PO Q8H PRN Docusate Calcium 240 Mg Capsule 240 Mg PO DAILY Bisacodyl 5 Mg Tablet.dr 10 Mg PO MO,WE,FR @HS TAKES 2 (5MG) TABS Multivitamins (Multivitamin) 1 Each Tablet 1 Tab PO DAILY Tylenol (Acetaminophen) 325 Mg Tablet 325 Mg PO Q4H PRN Milk of Magnesia (Magnesium Hydroxide) 400 Mg/5 Ml Oral.susp 30 Ml PO DAILY PRN Loratadine 10 Mg Tablet 10 Mg PO DAILY Clonazepam 2 Mg Tablet 2 Mg PO HS Assessment/Pt Instructions Seizure disorder Continue Keppra at 1,000mg BID; Patient has previously sometimes removed her IV or refused oral medications, currently taking her Keppra PO, but may need IV administration if refuses. 1mg Ativan IV PRN for seizures Telesitter for monitoring UTI Culture grew malcolm-sensitive e.coli and Klebsiella pneumonia resistant to ampicillin only Completed round of treatment with 3 days of 1g Rocephin IV daily RLL Pneumonia Failed outpatient azithromycin, started on 07/27 Completed 3 days of 1g Rocephin IV daily Discharged with 2 day supply of 500 mg cephalexin PO BID Anemia Mild, asymptomatic Hypokalemia Resolved after IV supplementation with 1L of 5% dextrose/4.5% NS with 20meq/l KCl Intellectual disability Being discharged to her halfway with [facility] today Follow with their PCP Dr. Will in 1-2 weeks Discharge Physical Examination Vital Signs Vital Signs Date Time Temp Pulse Resp B/P (MAP) Pulse Ox O2 Delivery O2 Flow Rate FiO2 08/04/22 08:00 96 Room Air 08/04/22 07:27 36.2 87 18 148/85 (106) General Appearance: No Apparent Distress, Thin HEENT: PERRL/EOMI, Pharynx Normal Respiratory: Lungs Clear, Normal Breath Sounds, No Respiratory Distress Cardiovascular: Regular Rate, Rhythm, No Edema, Normal Peripheral Pulses Gastrointestinal: Non Tender, Soft Extremity: Normal Capillary Refill, Non Tender Skin: Normal Color, Warm/Dry Neurologic/Psychiatric: Alert, Other (nonverbal) Allergies: Coded Allergies: No Known Drug Allergies (Unverified , 12/27/16) Discharge Summary Date of Admission Aug 02, 2022 at 13:47 Date of Discharge MAU BUENROSTRO MD 08/04/22 1549: Discharge Summary Discharge Physical Examination Allergies: Coded Allergies: No Known Drug Allergies (Unverified , 12/27/16) CONRADO NIX Aug 04, 2022 12:45 MAU BUENROSTRO MD Aug 04, 2022 15:49
[2022-08-04 13:35] VITALS: BP 90/50
== END 2022-08-04 13:42 | disposition home or self-care (01) | DRG 100 ==
LOC: EDUNIT# 18:09 → ER 18:10 → 4TH 20:40 → OBSVTOIN 08-02 13:47 → 4TH 08-02 15:15
PROVIDERS: ADMIT Internal Medicine; ATTEND Internal Medicine
DX: G40.909 Epilepsy, unspecified, not intractable, without status epilepticus (principal); J18.9 Pneumonia, unspecified organism; N39.0 Urinary tract infection, site not specified; F84.0 Autistic disorder; B96.20 Unspecified Escherichia coli [E. coli] as the cause of diseases classified elsewhere; B96.1 Klebsiella pneumoniae [K. pneumoniae] as the cause of diseases classified elsewhere; D64.9 Anemia, unspecified; E87.6 Hypokalemia; K59.09 Other constipation; F42.9 Obsessive-compulsive disorder, unspecified; F41.9 Anxiety disorder, unspecified; F31.9 Bipolar disorder, unspecified; H61.22 Impacted cerumen, left ear; Z79.899 Other long term (current) drug therapy; Z20.822 Contact with and (suspected) exposure to COVID-19
CPT/HCPCS: 36415; 71045; 74018; 80048; 80053; 81000; 82550; 83605; 83735; 84443; 85025; 85027; 85610; 85730; 86141; 87040; 87077; 87088; 87186; 87636; G0378

== ENCOUNTER 2023-02-15 16:43 | Observation (INO) | payer MEDICARE, MEDICAID ==
[~2023-02-15] VITALS: Ht 160 cm; Wt 47.4 kg
[~2023-02-15 16:43] MED LIST changes: +DOCU240C24 PO; +FERR325T24 PO; +LEVE10006 PO; +LEVE750T5 PO; +MONT-40 PO; +PROM5SYR PO
[2023-02-15] MEDS ORDERED: levETIRAcetam 1000 mg/NS 100ml 100 ML IV STA (16:52)
--- NOTE | 2023-02-15 16:55 | ED General ---
General Chief Complaint: Neurological Problems Stated Complaint: SEIZURE Source of Information: Patient Exam Limitations: No Limitations (MARCY PERERA MD) History of Present Illness Date Seen by Provider: Feb 15, 2023 Time Seen by Provider: 16:46 Initial Comments 68-year-old female that is nonverbal at baseline coming in via EMS due to a seizure. She does have seizures at baseline and takes keppra BID, had 2 of them earlier and one with EMS. They placed an IV and gave her Versed. She has not missed any medicines reportedly, although she is nonverbal, and further elements of the history and physical were unable to be obtained. (MARCY PERERA MD) Allergies and Home Medications Allergies Coded Allergies: No Known Drug Allergies (Unverified , 12/27/16) Patient Home Medication List Home Medication List Reviewed: Yes (MARCY PERERA MD) Home Medication List Reviewed: Yes (AMBER RUVALCABA MD) Acetaminophen (Tylenol) 325 Mg Tablet, 325 MG PO Q4H PRN for PAIN-MILD (1-4), (Reported) Entered as Reported by: BILL MCCLELLAND on 09/26/17 1039 Bisacodyl (Bisacodyl) 5 Mg Tablet.dr, 10 MG PO MO,WE,FR @HS, (Reported) Entered as Reported by: BILL MCCLELLAND on 09/05/18 0911 Cephalexin (Cephalexin) 500 Mg Tablet, 500 MG PO BID Prescribed by: MAU BUENROSTRO on 08/04/22 1237 Clonazepam (Clonazepam) 2 Mg Tablet, 2 MG PO HS, (Reported) Entered as Reported by: LENA BOGGS on 09/25/172003 Docusate Calcium (Docusate Calcium) 240 Mg Capsule, 240 MG PO DAILY, (Reported) Entered as Reported by: MADDY QUINN on 08/02/22 1430 Levetiracetam (Levetiracetam) 1,000 Mg Tablet, 1,000 MG PO BID Prescribed by: MAU BUENROSTRO on 08/04/22 1237 Loratadine (Loratadine) 10 Mg Tablet, 10 MG PO DAILY, (Reported) Entered as Reported by: BILL MCCLELLAND on 09/26/17 1039 Magnesium Hydroxide (Milk of Magnesia) 400 Mg/5 Ml Oral.susp, 30 ML PO DAILY PRN for CONSTIPATION-7TH LINE, (Reported) Entered as Reported by: BILL MCCLELLAND on 09/26/17 1039 Montelukast Sodium (Montelukast Sodium) 10 Mg Tablet, 10 MG PO DAILY, (Reported) Entered as Reported by: MADDY QUINN on 08/02/22 1430 Multivitamin (Multivitamins) 1 Each Tablet, 1 TAB PO DAILY, (Reported) Entered as Reported by: BILL MCCLELLAND on 09/05/18 0911 Review of Systems Review of Systems Constitutional: No fever EENTM: no symptoms reported Respiratory: no symptoms reported Cardiovascular: no symptoms reported Psychiatric/Neurological: See HPI (MARCY PERERA MD) Past Qcyblnj-Vjpwpr-Dahtwx Hx Immunizations Up To Date Tetanus Booster (TDap): Unknown First/Initial COVID19 Vaccinat: AUGUST 2020 Second COVID19 Vaccination Ezra: SEPTEMBER 2020 (MARCY PERERA MD) Seasonal Allergies Seasonal Allergies: Yes (MARCY PERERA MD) Past Medical History Surgery/Hospitalization HX: SEIZURES Surgeries: Yes (RT EYE) Respiratory: No Cardiac: Yes (PVC'S) Neurological: Yes Developmental Disorder, Seizure Disorder Reproductive Disorders: No Genitourinary: No Gastrointestinal: Yes (nausea) Chronic Constipation Musculoskeletal: No Endocrine: No HEENT: No Cancer: No Psychosocial: Yes (AUTISM,OCD,INTELLECTUAL DISORDER) Anxiety, Bipolar Integumentary: No Blood Disorders: No (MARCY PERERA MD) Family Medical History Seizure disorder twin sister Physical Exam Vital Signs Capillary Refill : (MARCY PERERA MD) Height, Weight, BMI Height: 5'6.00" Weight: 145lbs. 0.0oz. [id number]; 17.53 BMI Method:Estimated General Appearance: Other (Nonverbal, alert, moving all extremities) Eyes: Bilateral Eye Normal Inspection, Bilateral Eye PERRL, Bilateral Eye EOMI HEENT: PERRL/EOMI, Normal ENT Inspection, Pharynx Normal Neck: Full Range of Motion, Normal Inspection, Non Tender, Supple Respiratory: Chest Non Tender, Lungs Clear, Normal Breath Sounds, No Accessory Muscle Use, No Respiratory Distress Cardiovascular: Tachycardia Gastrointestinal: Normal Bowel Sounds, Non Tender, Soft Back: Normal Inspection, No CVA Tenderness Extremity: Normal Capillary Refill, Normal Inspection, Normal Range of Motion, Non Tender, No Calf Tenderness, No Pedal Edema Neurologic/Psychiatric: Other (Alert, moving all extremities, following basic commands, nonverbal) Skin: Normal Color, Warm/Dry (MARCY PERERA MD) Procedures/Interventions Suture Size: 5-0 (MARCY PERERA MD) Progress/Results/Core Measures Suspected Sepsis SIRS Temperature: Pulse: Respiratory Rate: Laboratory Tests 02/15/23 16:52: White Blood Count 6.7 Blood Pressure / Mean: Laboratory Tests 02/15/23 16:52: Creatinine 0.87, Platelet Count 297, Total Bilirubin 0.1 (MARCY PERERA MD) Results/Orders Lab Results Laboratory Tests Test 02/15/23 16:52 02/15/23 18:05 Range/Units White Blood Count 6.7 4.3-11.0 10^3/uL Red Blood Count 3.50 L 3.80-5.11 10^6/uL Hemoglobin 9.9 L 11.5-16.0 g/dL Hematocrit 33 L 35-52 % Mean Corpuscular Volume 93 80-99 fL Mean Corpuscular Hemoglobin 28 25-34 pg Mean Corpuscular Hemoglobin Concent 30 L 32-36 g/dL Red Cell Distribution Width 14.6 H 10.0-14.5 % Platelet Count 297 130-400 10^3/uL Mean Platelet Volume 10.1 9.0-12.2 fL Immature Granulocyte % (Auto) 1 % Neutrophils (%) (Auto) 77 H 42-75 % Lymphocytes (%) (Auto) 12 12-44 % Monocytes (%) (Auto) 9 0-12 % Eosinophils (%) (Auto) 0 0-10 % Basophils (%) (Auto) 0 0-10 % Neutrophils # (Auto) 5.1 1.8-7.8 10^3/uL Lymphocytes # (Auto) 0.8 L 1.0-4.0 10^3/uL Monocytes # (Auto) 0.6 0.0-1.0 10^3/uL Eosinophils # (Auto) 0.0 0.0-0.3 10^3/uL Basophils # (Auto) 0.0 0.0-0.1 10^3/uL Immature Granulocyte # (Auto) 0.1 0.0-0.1 10^3/uL Sodium Level 139 135-145 MMOL/L Potassium Level 3.7 3.6-5.0 MMOL/L Chloride Level 103 98-107 MMOL/L Carbon Dioxide Level 16 L 21-32 MMOL/L Anion Gap 20 H 5-14 MMOL/L Blood Urea Nitrogen 20 H 7-18 MG/DL Creatinine 0.87 0.60-1.30 MG/DL Estimat Glomerular Filtration Rate 72 BUN/Creatinine Ratio 23 Glucose Level 129 H 70-105 MG/DL Calcium Level 8.8 8.5-10.1 MG/DL Corrected Calcium 9.1 8.5-10.1 MG/DL Magnesium Level 2.2 1.6-2.4 MG/DL Total Bilirubin 0.1 0.1-1.0 MG/DL Aspartate Amino Transf (AST/SGOT) 34 5-34 U/L Alanine Aminotransferase (ALT/SGPT) 39 0-55 U/L Alkaline Phosphatase 84 40-136 U/L Total Protein 6.7 6.4-8.2 GM/DL Albumin 3.6 3.2-4.5 GM/DL Lipase 42 8-78 U/L Urine Color YELLOW Urine Clarity CLEAR Urine pH 5.5 5-9 Urine Specific [place] >=1.030 1.016-1.022 Urine Protein TRACE H NEGATIVE Urine Glucose (UA) NEGATIVE NEGATIVE Urine Ketones NEGATIVE NEGATIVE Urine Nitrite NEGATIVE NEGATIVE Urine Bilirubin NEGATIVE NEGATIVE Urine Urobilinogen 0.2 < = 1.0 MG/DL Urine Leukocyte Esterase NEGATIVE NEGATIVE Urine RBC (Auto) NEGATIVE NEGATIVE Urine RBC NONE /HPF Urine WBC 5-10 H /HPF Urine Squamous Epithelial Cells RARE /HPF Urine Crystals NONE /LPF Urine Bacteria TRACE /HPF Urine Casts NONE /LPF Urine Mucus NEGATIVE /LPF Urine Culture Indicated YES (AMBER RUVALCABA MD) My Orders Orders - AMBER RUVALCABA MD Ct Head Wo (02/15/23 18:32) (AMBER RUVALCABA MD) Medications Given in ED Current Medications Medications Dose Ordered Sig/Bernardino Route Start Time Stop Time Status Last Admin Dose Admin Ceftriaxone Sodium 1000 mg/ Sodium Chloride 50 ml @ 100 mls/hr ONCE ONCE IV 02/15/23 18:30 02/15/23 18:59 DC 02/15/23 18:56 100 MLS/HR (AMBER RUVALCABA MD) Vital Signs/I&O Capillary Refill : (MARCY PERERA MD) Progress Note : Progress Note 68-year-old female with above history coming in due to a seizure with known seizure disorder. ABCs were intact and vitals were stable on presentation although she is tachycardic. On review of the chart, tachycardia is normal for her. She already received Versed, an IV was then placed and she was given Keppra here followed by IV fluids. Labs significant for normal white blood cell count, chronic anemia with stable, normal creatinine, anion gap metabolic acidosis likely secondary to the seizure with likely elevated lactate when it was drawn. Patient will be signed out to the oncoming physician pending the remaining lab work including the urinalysis. She did have some bibasilar hazy opacities which could be infectious. She was given ceftriaxone here. I suspect if the patient gets back to her baseline that she will be discharged home. (MARCY PERERA MD) Progress Note #1: Time: 18:28 Progress Note Patient care assumed at shift change. The patient's caregiver grabbed me as I was walking by the room and stated that she had just completed another 62nd seizure. Generalized tonic-clonic by her description. The caregiver states that this is a change from her normal seizure pattern. She has not "seized like this" since June. She reports to me that the patient did have a choking spell on Monday of this week, on a hamburger. EMS was called and the patient jama d the Heimlich maneuver performed. She was reassessed after the choking spell and deemed to be stable to stay in her living environment. She had a follow-up appointment scheduled with her primary care physician tomorrow. The patient has not missed or skipped any of her medications. Caregiver reports that her appetite has been a little bit decreased over the last few days. She does not normally require oxygen. She is nonverbal at baseline. She has had normal output. Normally her appetite is "really good". No recent illnesses that the caregiver is aware of but she is prone to urinary tract infections. Physical exam immediately post seizure showed room air saturations at 84%. Labored breathing. She has coarse wet crackly breath sounds throughout. She is edentulous, no intraoral injury as a result of the seizure. No extremity injury as a result of this most recent seizure. Patient was placed on supplemental oxygen by nasal cannula at 3 L. Repositioned in the bed for safety. Abdomen is soft, nondistended. UA is pending at the time of this dictation Prior to my assuming care the patient has been loaded with Keppra. Her chest x- ray shows some haziness laterally, 1 g of Rocephin was ordered by Dr. Perera. I have reviewed her labs. CO2 is low, IVF have been ordered. Will repeat CT Brain as this is a rather dramatic change as described by caregiver. Anticipate admission. Progress Note #2: Time: 19:[address] head reviewed by me and read by radiology as no acute findings. Case discussed with Dr. Fraser, hospitalist on this evening. Agrees with admission observation to medical. We will continue IV Keppra. Will discontinue Rocephin. Seizure precautions. (AMBER RUVALCABA MD) Diagnostic Imaging Diagonstic Imaging: Xray (chest) Comments [facility], [place] NAME: [facility] REC#: [id number] PT STATUS: REG ER : 1955 PHYSICIAN: MARCY PERERA MD ADMIT DATE: 02/15/23/ER Signed Date of Exam:02/15/23 CHEST 1 VIEW, AP/PA ONLY CHEST 1 VIEW, AP/PA ONLY INDICATION: fever, seizure. COMPARISON: Chest radiograph 08/01/2022. FINDINGS: Lungs: Normal lung volume. Bibasilar airspace opacities Pleura: No pleural effusion or pneumothorax. Heart and Mediastinum: Cardiomegaly. Pulmonary vascularity is within normal limits.. Hiatal hernia. Osseous Structures and Soft Tissues: No acute osseous abnormality. Normal soft tissues. IMPRESSION: Bibasilar airspace opacities may represent infection or atelectasis. Hiatal hernia. Cardiomegaly. Dictated by: Dictated on workstation # [id number] Dict: 02/15/23 1745 Trans: 02/15/23 1746 [facility] [place] [id number] Interpreted by: GRETTA OLMSTEAD DO Electronically signed by: GRETTA OLMSTEAD DO 02/15/23 1746 (MARCY PERERA MD) Diagonstic Imaging: CT Comments [facility], [place] NAME: [facility] REC#: [id number] PT STATUS: REG ER : 1955 PHYSICIAN: AMBER RUVALCABA MD ADMIT DATE: 02/15/23/ER Signed Date of Exam:02/15/23 CT HEAD WO PROCEDURE: CT head without contrast. TECHNIQUE: Multiple contiguous axial images were obtained through the brain without the use of intravenous contrast. Auto Exposure Controls were utilized during the CT exam to meet ALARA standards for radiation dose reduction. INDICATION: Seizure COMPARISON: CT of the head on 09/04/2018 FINDINGS: No acute intracranial hemorrhage. The box-white matter differentiation is preserved. No midline shift or mass effect. No intracranial mass or fluid collection. The ventricles are normal. The subarachnoid cisterns are maintained. The paranasal sinuses and mastoids are clear. The globes and orbits are normal. IMPRESSION: No acute intracranial hemorrhage. No large vascular territory culver-white loss. No intracranial mass, midline shift, or hydrocephalus. Dictated by: Dictated on workstation # [id number] Dict: 02/15/231846 Trans: 02/15/231848 [facility] [place] [id number] Interpreted by: GRETTA OLMSTEAD DO Electronically signed by: GRETTA OLMSTEAD DO 02/15/231848 (AMBER RUVALCABA MD) Departure Communication (Admissions) Time/Spoke to Admitting Phy: 19:[address] Fraser (Hospitalist) obs to medical; continue Keppra IV - not Rocephin (AMBER RUVALCABA MD) Impression Primary Impression: Breakthrough seizure Additional Impression: Opacity of lung on imaging study Disposition: ADMITTED INPATIENT Condition: Stable Admissions Decision to Admit Reason: Admit from ER (General) Decision to Admit/Date: Feb 15, 2023 Time/Decision to Admit Time: 19:26 (AMBER RUVALCABA MD) Departure-Patient Inst. Referrals: EVE SOSA DO (PCP/Family) Primary Care Physician MARCY PERERA MD Feb 15, 2023 16:55 AMBER RUVALCABA MD Feb 15, 2023 18:31
[2023-02-15 16:58] LABS: BASOPHILS % (AUTO) 0 % (0-10); EOSINOPHILS % (AUTO) 0 % (0-10); HEMATOCRIT 33 % (35-52); HEMOGLOBIN 9.9 g/dL (11.5-16.0); LYMPHOCYTES # (AUTO) 0.8 10^3/uL (1.0-4.0); LYMPHOCYTES % (AUTO) 12 % (12-44); MEAN CORPUSCULAR HEMOGLOBIN 28 pg (25-34); MEAN CORPUSCULAR HGB CONC 30 g/dL (32-36); MEAN CORPUSCULAR VOLUME 93 fL (80-99); MEAN PLATELET VOLUME 10.1 fL (9.0-12.2); MONOCYTES # (AUTO) 0.6 10^3/uL (0.0-1.0); MONOCYTES % (AUTO) 9 % (0-12); NEUTROPHILS # (AUTO) 5.1 10^3/uL (1.8-7.8); NEUTROPHILS % (AUTO) 77 % (42-75); PLATELET COUNT 297 10^3/uL (130-400); WHITE BLOOD COUNT 6.7 10^3/uL (4.3-11.0)
[2023-02-15 17:10] LABS: ALBUMIN 3.6 GM/DL (3.2-4.5)
[2023-02-15 17:11] LABS: POTASSIUM 3.7 MMOL/L (3.6-5.0)
[2023-02-15 17:12] LABS: CALCIUM 8.8 MG/DL (8.5-10.1)
[2023-02-15 17:13] LABS: TOTAL PROTEIN 6.7 GM/DL (6.4-8.2)
[2023-02-15 17:15] LABS: BILIRUBIN,TOTAL 0.1 MG/DL (0.1-1.0)
[2023-02-15 17:17] LABS: CREATININE SERUM 0.87 MG/DL (0.60-1.30)
[2023-02-15 17:19] LABS: MAGNESIUM 2.2 MG/DL (1.6-2.4)
--- NOTE | 2023-02-15 17:47 | Diagnostic Imaging Report ---
CHEST 1 VIEW, AP/PA ONLY INDICATION: fever, seizure. COMPARISON: Chest radiograph 08/01/2022. FINDINGS: Lungs: Normal lung volume. Bibasilar airspace opacities Pleura: No pleural effusion or pneumothorax. Heart and Mediastinum: Cardiomegaly. Pulmonary vascularity is within normal limits.. Hiatal hernia. Osseous Structures and Soft Tissues: No acute osseous abnormality. Normal soft tissues. IMPRESSION: Bibasilar airspace opacities may represent infection or atelectasis. Hiatal hernia. Cardiomegaly. Dictated by: Dictated on workstation # [id number]
[2023-02-15] MEDS ORDERED: NS IV 1000 ML 1,000 ML IV STA (18:11)
[2023-02-15 18:25] LABS: CLARITY,URINE CLEAR; COLOR,URINE YELLOW
[2023-02-15 18:26] LABS: BACTERIA,URINE TRACE /HPF; BILIRUBIN,URINE NEGATIVE (NEGATIVE); GLUCOSE, URINE (UA) NEGATIVE (NEGATIVE); KETONES,URINE NEGATIVE (NEGATIVE); LEUKOCYTE ESTERASE ,URINE NEGATIVE (NEGATIVE); NITRITE,URINE NEGATIVE (NEGATIVE); PH,URINE 5.5 (5-9); PROTEIN,URINE TRACE (NEGATIVE); SQUAMOUS EPITHELIAL CELL,UR RARE /HPF
[2023-02-15] MEDS ORDERED: cefTRIAXone IV/IM 1,000 MG in NS (IVPB) 50 ML 50 ML IV ONE (18:30)
--- NOTE | 2023-02-15 18:51 | Diagnostic Imaging Report ---
PROCEDURE: CT head without contrast. TECHNIQUE: Multiple contiguous axial images were obtained through the brain without the use of intravenous contrast. Auto Exposure Controls were utilized during the CT exam to meet ALARA standards for radiation dose reduction. INDICATION: Seizure COMPARISON: CT of the head on 09/04/2018 FINDINGS: No acute intracranial hemorrhage. The box-white matter differentiation is preserved. No midline shift or mass effect. No intracranial mass or fluid collection. The ventricles are normal. The subarachnoid cisterns are maintained. The paranasal sinuses and mastoids are clear. The globes and orbits are normal. IMPRESSION: No acute intracranial hemorrhage. No large vascular territory culver-white loss. No intracranial mass, midline shift, or hydrocephalus. Dictated by: Dictated on workstation # [id number]
[2023-02-15 22:52] VITALS: BP 18/133
[2023-02-15] MEDS ORDERED: ACETAMINOPHEN 650 MG SUPPOSITORY PR PRN (23:30)
[2023-02-15] MEDS ORDERED: ACETAMINOPHEN 325 MG TABLET PO PRN (23:30)
[2023-02-15] MEDS ORDERED: NS + KCL 20 MEQ/L 1000 ML 1,000 ML IV SCH (23:30)
[2023-02-15] MEDS ORDERED: ONDANSETRON INJECTION 4 MG/2 ML (SDV) IV PRN (23:30)
[2023-02-15 23:32] VITALS: BP 100/57
[2023-02-16 04:00] VITALS: BP 113/57
[2023-02-16 06:12] LABS: CALCIUM 8.3 MG/DL (8.5-10.1)
[2023-02-16 06:16] LABS: CREATININE SERUM 0.71 MG/DL (0.60-1.30)
[2023-02-16 07:45] LABS: HEMATOCRIT 30 % (35-52); HEMOGLOBIN 9.5 g/dL (11.5-16.0); MEAN CORPUSCULAR HEMOGLOBIN 28 pg (25-34); MEAN CORPUSCULAR HGB CONC 31 g/dL (32-36); MEAN CORPUSCULAR VOLUME 91 fL (80-99); PLATELET COUNT 267 10^3/uL (130-400); WHITE BLOOD COUNT 24.9 10^3/uL (4.3-11.0)
[2023-02-16] MEDS ORDERED: LEVE750T5 PO (07:52)
[2023-02-16 08:02] VITALS: BP 108/68
--- NOTE | 2023-02-16 10:21 | Diagnostic Imaging Report ---
EXAMINATION: Chest 1 view HISTORY: Hypoxia COMPARISON: 02/15/2023 FINDINGS: There is right base airspace opacity from prior exam. No pneumothorax. Heart size is normal. IMPRESSION: 1. New right base airspace opacity concerning for pneumonia, possibly aspiration given the rapid development. Dictated by: Dictated on workstation # [id number]
[2023-02-16] MEDS: LEVETIRACETAM IV SCH ×2 (10:26→21:06)
[2023-02-16] MEDS: NS IV SCH ×2 (10:26→21:06)
--- NOTE | 2023-02-16 10:36 | History & Physical-Hospitalist ---
History of Present Illness HPI/Chief Complaint Pt is a 68yoCF who is nonverbal and unable to provide any history. All history is obtained from the records. She reportedly have increased seizures from her baseline yesterday. She is normally maintained on Keppra and has not missed any doses. She had two seizures yesterday and one in the ER. Given the significant change from her baseline she was admitted for observation. Per ER note she also had an episode of choking earlier this week requiring Heimlich. Source: patient Date Seen 02/16/23 Time Seen by a Provider: 08:20 Attending Physician Jarvis Will DO PCP Admitting Physician: Latrell Fraser MD Attending Physician: Latrell Fraser MD Referring Physician Date of Admission Feb 15, 2023 at 21:57 Home Medications & Allergies Home Medications Reviewed patient Home Medication Reconciliation performed by pharmacy medication reconciliations instrumentation technician and/or nursing. Patients Allergies have been reviewed. Allergies Allergies Coded Allergies No Known Drug Allergies (Unverified12/27/16) Past Zxddytx-Srdirq-Dtawix Hx Patient Social History Tobacco Use?: No Use of E-Cig and/or Vaping dev: No Substance use?: No Alcohol Use?: No Pt feels they are or have been: No Immunizations Up To Date Date of Influenza Vaccine: May 29, 2019 First/Initial COVID19 Vaccinat: AUGUST 2020 Second COVID19 Vaccination Ezra: SEPTEMBER 2020 Tetanus Booster (TDap): Unknown Seasonal Allergies Seasonal Allergies: Yes Current Status status: No status: No Advance Directives: Yes Advance Directive Location: Home Communicates: Gestures, Points, Verbally Primary Language: Tamazight Preferred Spoken Language: Tamazight Is interpretation needed?: No Implanted or Applied Medical D: None Past Medical History Developmental Disorder, Seizure Disorder Chronic Constipation Anxiety, Bipolar Blood Disorders: No Family Medical History Reviewed Nursing Family Hx Seizure disorder twin sister Review of Systems Constitutional: see HPI Physical Exam Physical Exam Vital Signs Vital Signs - First Documented 02/15/23 02/15/23 02/15/23 16:43 17:15 22:52 Temp 37.6 Pulse 95 Resp 18 B/P (MAP) 133/78 (96) Pulse Ox 91 O2 Delivery Room Air O2 Flow Rate 3.00 FiO2 21 Capillary Refill : Less Than 3 Seconds Height, Weight, BMI Height: 5'6.00" Weight: 145lbs. 0.0oz. 65.856451fx; 18.51 BMI Method:Estimated General Appearance: No Apparent Distress, WD/WN Respiratory: Lungs Clear, No Respiratory Distress Cardiovascular: Regular Rate, Rhythm, No Murmur Gastrointestinal: Normal Bowel Sounds, Soft Neurologic/Psychiatric: Alert, Other (nonverbal) Results Results/Procedures Labs Laboratory Tests 02/15/23 16:52 02/16/23 05:18 02/17/23 05:15 Patient resulted labs reviewed. Assessment/Plan Admission Diagnosis Increased seizure activity Admission Status: Observation Assessment and Plan Increased seizure activity Seizure disorder Development disorder Intellectual disability Continue IV Keppra Seizure precautions Aspiration pneumonia? Will consult speech to evaluate Repeat CXR shows right base infiltrate Start Zosyn due to concern for aspiration Diagnosis/Problems Diagnosis/Problems (1) Breakthrough seizure Status: Acute (2) Right lower lobe pneumonia Status: Acute MAU BUENROSTRO MD Feb 16, 2023 10:36
--- NOTE | 2023-02-16 11:22 | ST Dysphagia Evaluation ---
Speech Evaluation-General Medical Diagnosis Seizure Onset Date: Feb 15, 2023 Therapy Diagnosis Therapy Diagnosis: Mild Oral Dysphagia Precautions Precautions: Fall, Pressure Ulcer, Aspiration, Seizure Precautions/Isolations: Aspiration, Fall Prevention, Standard Precautions, Pressure Ulcer Referral Referring Physician: Dr. Villafana Reason for Referral: Evaluation/Treatment Medical History Current History CXR: 02/16/2023: 1. New right base airspace opacity concerning for pneumonia, possibly aspiration given the rapid development. Reviewed History: Yes Speech PLF/Current-Dysphagia Prior Level of Function Per RN, the patient's facility stated the patient self-fed however required staff supervision due to impulsivity. The patient's prior P.O. consistency is unknown. Subjective The patient was found with her head at the foot of her bed, the blanket over her head, and her IV cord wrapped around her body. The RN was notified. With the assistance of two RN's, the patient was positioned upright in bed for safe swallowing. The patient is on room air at this time. Cognitive Status Patient Orientation: Unable to Assess Oral Motor Skills Dentition: Edentalous Ability to Follow Directions: Poor Oral Expression Ability: Severe Impairment Face Facial Symmetry: Symmetrical (Grossly symmetrical at rest.) Oral-Facial Assessment Labial Seal Description: Poor Coordination Dysphagia Evaluation Consistencies Presented: Thin Liquid, Pureed Oral Phase: Anterior Spillage Braulio anterior spillage was visualized with thin liquids via cup when the patient was allowed to self-feed. Maximum encouragement was required for the patient to release the cup following. The patient was unable to draw material from a straw. A delayed pharyngeal swallow was appreciated with thin liquid consistencies, followed by an audible swallow. The patient was provided thin liquid via teaspoon, thin liquid via cup edge, and puree. A straw was attempted however the patient was unable to draw material through the straw. The patient displayed one cough following the initial teaspoon of thin liquid. No additional s/s of suspected aspiration were demonstrated with six ounces of water via cup edge drinks administered by clinician (only) and four ounces of puree (administered by clinician only). The patient was allowed one opportunity to self feed with cup edge drinks. The patient takes the cup and rigorously and impulsively drinks from the edge of the cup, displaying large amounts of anterior spillage and hand over hand removal of the cup for the patient to cease intake. The clinician suspects aspiration event may be secondary to the patient's impulsivity with intake versus seizure onset. Dietary Recommendations: Pureed Liquid Recommendations: Thin Recommendations: - PU4 with thin liquids, as tolerated. - 1:1 staff feeding, only. - Fully upright and alert for P.O. intake. - Small bites and sips. - No straws (as the clinician was unable to assess straws throughout the evaluation because the patient was unable to draw material through the item). - Crush medication and place in puree for administration. - Monitor for s/s of suspected aspiration. If demonstrated, please contact speech pathology. The results and recommendations were provided to the patient, placed on the in- room white board, and discussed with the RN. The clinician suspects the patient's aspiration event may have been secondary to the patient's impulsivity with intake (please see above) versus seizure onset. The patient should always be fed by staff to aid in pacing and eliminate impulsive behaviors. Speech Short Term Goals Short Term Goals Short Term Goals 1. The staff will demonstrate safe swallowing strategies with 90% accuracy, independently. Time Frame-STG: Two Days. Speech Group Home Goals Group Home Goals 1. The patient will demonstrate safe tolerance of the least restrictive diet consistency. Time Frame: Five Days. Speech-Plan Treatment Plan Speech Therapy Treatment Plan: Continue Plan of Care Treatment Duration: Feb 17, 2023 Frequency: 1 time per week Estimated Hrs Per Day: .25 hour per day Rehab Potential: Poor Safety Risks/Education Teaching Recipient: Patient Teaching Methods: Discussion Response to Teaching: Unable to Comprehend Education Topics Provided: Results, Recommendations, Plan of Care Time Speech Therapy Time In: 10:40 Speech Therapy Time Out: 11:00 DATE: Feb 16, 2023 Total Billed Time: 20 Billed Treatment Time 1, JESUS DUNN [facility] Feb 16, 2023 11:22
[2023-02-16 11:47] VITALS: BP 126/77
[2023-02-16] MEDS ORDERED: ACETAMINOPHEN 325 MG TABLET PO PRN (12:30)
[2023-02-16] MEDS ORDERED: MILK OF MAGNESIA 400 MG/5 ML 30 ML UDC PO PRN (12:30)
[2023-02-16] MEDS ORDERED: PIPERACILLIN/Tazobactam 4.5 GM in NS (IVPB) 100 ML 100 ML IV NR (12:30)
[2023-02-16 15:33] VITALS: BP 108/62
[2023-02-16] MEDS: PIPERACILLIN/Tazobactam 4.5 GM in NS (IVPB) 100 ML 100 ML IV SCH (18:30)
[2023-02-16 19:47] VITALS: BP 108/68
[2023-02-16] MEDS ORDERED: MIRTAZAPINE 15 MG TABLET PO SCH (21:00)
[2023-02-16] MEDS ORDERED: clonazePAM 1 MG TABLET PO SCH (21:00)
[2023-02-16] MEDS ORDERED: NON-FORMULARY MEDICATION 1 EA EA (Clonazepam 2 MG) PO SCH (21:00)
[2023-02-16 23:58] VITALS: BP 153/80
[2023-02-17 04:00] VITALS: BP 90/53
[2023-02-17] MEDS: PIPERACILLIN/Tazobactam 4.5 GM in NS (IVPB) 100 ML 100 ML IV SCH (04:51)
[2023-02-17 05:33] LABS: HEMATOCRIT 31 % (35-52); HEMOGLOBIN 9.6 g/dL (11.5-16.0); MEAN CORPUSCULAR HEMOGLOBIN 28 pg (25-34); MEAN CORPUSCULAR HGB CONC 31 g/dL (32-36); MEAN CORPUSCULAR VOLUME 90 fL (80-99); MEAN PLATELET VOLUME 10.6 fL (9.0-12.2); PLATELET COUNT 257 10^3/uL (130-400); WHITE BLOOD COUNT 11.9 10^3/uL (4.3-11.0)
[2023-02-17 05:49] LABS: CALCIUM 8.6 MG/DL (8.5-10.1)
[2023-02-17 05:54] LABS: CREATININE SERUM 0.86 MG/DL (0.60-1.30)
[2023-02-17] MEDS ORDERED: THERAPEUTIC MULTIVITAMIN W/MINERALS TABLET PO SCH (07:00)
[2023-02-17 08:22] VITALS: BP 128/58
[2023-02-17] MEDS ORDERED: AMOX1TAB12 PO (08:32)
[2023-02-17] MEDS ORDERED: MIRT-47 PO (08:32)
--- NOTE | 2023-02-17 08:34 | Discharge Inst-Simple/Standard ---
Discharge Inst-Standard Patient Instructions/Follow Up Plan of Care/Instructions/FU: Please continue to take your medications as written. Please follow up with your primary care doctor to follow up this hospital stay. Activity as Tolerated: Yes Discharge Diet: Soft Diet (PUREED (4) AND SUPERVISED FEEDINGS with thin liquids) Return to The Hospital For: Chest pain, shortness of breath, fever, weakness, if you feel you are getting worse. MAU BUENROSTRO MD Feb 17, 2023 08:34
--- NOTE | 2023-02-17 08:35 | Discharge Summary ---
Diagnosis/Chief Complaint Date of Admission Feb 15, 2023 at 21:57 Date of Discharge Admission Diagnosis Increased seizure activity Primary Care Jarvis Will DO Discharge Summary Discharge Physical Exam Allergies: Coded Allergies: No Known Drug Allergies (Unverified , 12/27/16) Vitals & I&Os Vital Signs Date Time Temp Pulse Resp B/P (MAP) Pulse Ox O2 Delivery O2 Flow Rate FiO2 02/17/23 08:22 36.3 65 18 128/58 (81) Room Air 02/17/23 07:46 0.00 02/17/23 04:00 95 02/15/23 22:52 21 General Appearance: No Apparent Distress, Chronically ill, Thin Respiratory: Lungs Clear Cardiovascular: Regular Rate, Rhythm Gastrointestinal: Normal Bowel Sounds, Soft Neurologic/Psychiatric: Alert, Aphasia Hospital Course Patient was admitted to the hospitalist due to increasing seizure activity. A couple days before admission she had an aspiration event requiring the Heimlich maneuver. Following that she had increased seizure activity prompting evaluation. She was admitted and started on IV Keppra. She had no further seizures since being admitted. Repeat chest x-ray did show concern for a right base pneumonia and given the aspiration event she was started on IV antibiotics. Her white count trended down and she had no further seizures. Her guardian did express concern regarding her weight so she was started on Remeron to assist with weight gain. Speech therapy saw her and recommended pured diet with thin liquids. She is to be discharged home in improved and stable condition to follow-up with Dr. Will. Labs (last 24 hrs) Laboratory Tests 02/17/23 05:15: White Blood Count 11.9H, Red Blood Count 3.42L, Hemoglobin 9.6L, Hematocrit 31L, Mean Corpuscular Volume 90, Mean Corpuscular Hemoglobin 28, Mean Corpuscular Hemoglobin Concent 31L, Red Cell Distribution Width 14.7H, Platelet Count 257, Mean Platelet Volume 10.6, Sodium Level 140, Potassium Level 4.0, Chloride Level 106, Carbon Dioxide Level 26, Anion Gap 8, Blood Urea Nitrogen 19H, Creatinine 0.86, Estimat Glomerular Filtration Rate 73, BUN/Creatinine Ratio 22, Glucose Level 125H, Calcium Level 8.6 Patient resulted labs reviewed. Pending Labs Laboratory Tests 02/17/23 05:15: White Blood Count 11.9, Red Blood Count 3.42, Hemoglobin 9.6, Hematocrit 31, Mean Corpuscular Volume 90, Mean Corpuscular Hemoglobin 28, Mean Corpuscular Hemoglobin Concent 31, Red Cell Distribution Width 14.7, Platelet Count 257, Mean Platelet Volume 10.6, Sodium Level 140, Potassium Level 4.0, Chloride Level 106, Carbon Dioxide Level 26, Anion Gap 8, Blood Urea Nitrogen 19, Creatinine 0.86, Estimat Glomerular Filtration Rate 73, BUN/Creatinine Ratio 22, Glucose Level 125, Calcium Level 8.6 Discussion & Recommendations Discharge Planning: >30 minutes discharge planning Discharge Home Medications: Active Scripts Active Amox Tr-K Clv 875-125 mg Tab (Amoxicillin/Potassium Clav) 875 Mg-125 Mg Tablet 1 Each PO BID Mirtazapine 15 Mg Tab.rapdis 15 Mg PO HS Reported Levetiracetam 750 Mg Tablet 750 Mg PO BID Montelukast Sodium 10 Mg Tablet 10 Mg PO DAILY Docusate Calcium 240 Mg Capsule 240 Mg PO DAILY Bisacodyl 5 Mg Tablet.dr 10 Mg PO MO,WE,FR @HS TAKES 2 (5MG) TABS Multivitamins (Multivitamin) 1 Each Tablet 1 Tab PO DAILY Tylenol (Acetaminophen) 325 Mg Tablet 325 Mg PO Q4H PRN Milk of Magnesia (Magnesium Hydroxide) 400 Mg/5 Ml Oral.susp 30 Ml PO DAILY PRN Loratadine 10 Mg Tablet 10 Mg PO DAILY Clonazepam 2 Mg Tablet 2 Mg PO HS Instructions to patient/family Please see electronic discharge instructions given to patient. MAU BUENROSTRO MD Feb 17, 2023 08:35
[2023-02-17] MEDS ORDERED: LORATADINE 10 MG TABLET PO SCH (09:00)
[2023-02-17] MEDS ORDERED: DOCUSATE CALCIUM 240 MG CAPSULE PO SCH (09:00)
[2023-02-17] MEDS ORDERED: DOCUSATE SODIUM 100 MG CAPSULE PO SCH (09:00)
[2023-02-17] MEDS ORDERED: MONTELUKAST 10 MG TABLET PO SCH (09:00)
[2023-02-17 10:25] VITALS: BP 128/58
== END 2023-02-17 09:55 | disposition home or self-care (01) ==
LOC: EDUNIT# 16:43 → ER 16:45 → 4TH 21:57
PROVIDERS: ADMIT Internal Medicine; ATTEND Internal Medicine
DX: G40.909 Epilepsy, unspecified, not intractable, without status epilepticus (principal); R13.12 Dysphagia, oropharyngeal phase; J98.4 Other disorders of lung; F89 Unspecified disorder of psychological development; F79 Unspecified intellectual disabilities; Z79.899 Other long term (current) drug therapy
CPT/HCPCS: 36415; 70450; 71045; 80048; 80053; 81000; 82947; 83690; 83735; 84145; 85025; 85027; 87088; 94760

== ENCOUNTER → 2023-02-23 | Outpatient (CLI) | payer MEDICARE, MEDICAID ==
[~2023-02-23] MED LIST changes: +AMOX1TAB12 PO; +MIRT-47 PO
[2023-02-23 13:04] LABS: BASOPHILS # (AUTO) 0.1 10^3/uL (0.0-0.1); BASOPHILS % (AUTO) 1 % (0-10); EOSINOPHILS % (AUTO) 0 % (0-10); HEMATOCRIT 32 % (35-52); LYMPHOCYTES # (AUTO) 0.8 10^3/uL (1.0-4.0); LYMPHOCYTES % (AUTO) 18 % (12-44); MEAN CORPUSCULAR HEMOGLOBIN 28 pg (25-34); MEAN CORPUSCULAR HGB CONC 31 g/dL (32-36); MEAN CORPUSCULAR VOLUME 91 fL (80-99); MEAN PLATELET VOLUME 9.8 fL (9.0-12.2); MONOCYTES # (AUTO) 0.4 10^3/uL (0.0-1.0); MONOCYTES % (AUTO) 9 % (0-12); NEUTROPHILS % (AUTO) 71 % (42-75); PLATELET COUNT 355 10^3/uL (130-400); WHITE BLOOD COUNT 4.2 10^3/uL (4.3-11.0)
[2023-02-23 13:23] LABS: ALBUMIN 3.6 GM/DL (3.2-4.5); BILIRUBIN,TOTAL 0.2 MG/DL (0.1-1.0); CALCIUM 9.1 MG/DL (8.5-10.1); CREATININE SERUM 0.77 MG/DL (0.60-1.30); TOTAL PROTEIN 7.2 GM/DL (6.4-8.2)
--- NOTE | 2023-02-23 16:39 | Diagnostic Imaging Report ---
EXAMINATION: Chest 2 view HISTORY: Followup aspiration pneumonia. COMPARISON: 02/16/2023. FINDINGS: The lung volumes are normal. There is improved aeration in the right lung base with a small amount of residual opacities. No large pleural effusion or pneumothorax is seen. The cardiomediastinal silhouette is normal in size and contour. There is calcified aortic atherosclerotic plaque. Large hiatal hernia is seen. No acute osseous abnormality is seen. IMPRESSION: 1. Improved aeration in the right lung base, which may suggest improving aspiration pneumonia. 2. Large hiatal hernia. Dictated by: Dictated on workstation # [id number]
== END ==
LOC: RAD 12:44
PROVIDERS: ATTEND Family Medicine
DX: K44.9 Diaphragmatic hernia without obstruction or gangrene (principal); J18.8 Other pneumonia, unspecified organism
CPT/HCPCS: 36415; 71046; 80053; 85025

== ENCOUNTER 2023-04-02 12:01 | Emergency (ER) | payer MEDICARE, MEDICAID ==
[2023-04-02] MEDS ORDERED: NS IV 500 ML 500 ML IV STA (12:16)
[2023-04-02] MEDS ORDERED: levETIRAcetam 1000 mg/NS 100ml 100 ML IV STA (12:16)
[2023-04-02] MEDS ORDERED: levETIRAcetam 1000 mg/NS 100ml 100 ML IV ONE (12:17)
--- NOTE | 2023-04-02 12:22 | ED Neurological Problem ---
General Chief Complaint: Neurological Problems Stated Complaint: SEIZURE Nursing Triage Note: PT ARRIVED PER EMS, PT HAS HAD SEVERAL SEIZURES TODAY. PT IS MR AND HAS HEALTH CARE PROVIDER. PT IS POST ICTAL AND SL COMBATIVE. FSBS PER EMS 103. PT IS ABLE TO WALK AROUND AND HAS 24HOUR CARE. Source: EMS Exam Limitations: clinical condition History of Present Illness Date Seen by Provider: Apr 02, 2023 Time Seen by Provider: 12:05 Initial Comments Patient is a 68-year-old mentally challenged individual who has 24-hour caregivers at home presents to the emergency room by EMS with 3 seizures today. Patient normally apparently has "silent" per EMS but over the last few weeks apparently has had a change in her seizure pattern. She is having did not generalized tonic-clonic seizures. EMS did witness 1 this morning as they were picking up for transport this morning. It lasted approximately 30 seconds. Patient is at baseline nonverbal. She is ambulatory. Caregiver is not present at this time for history. Above-stated history is from EMS. She is on Keppra a s well as clonazepam according to the medication list that EMS has. Blood sugar prior to arrival was 103. Timing/Duration: increasing Severity: severe Allergies and Home Medications Allergies Coded Allergies: No Known Drug Allergies (Unverified , 12/27/16) Patient Home Medication List Home Medication List Reviewed: Yes Acetaminophen (Tylenol) 325 Mg Tablet, 325 MG PO Q4H PRN for PAIN-MILD (1-4), (Reported) Entered as Reported by: BILL MCCLELLAND on 09/26/17 1039 Amoxicillin/Potassium Clav (Amox Tr-K Clv 875-125 mg Tab) 875 Mg-125 Mg Tablet, 1 EACH PO BID Prescribed by: MAU BUENROSTRO on 02/17/23 0832 Bisacodyl (Bisacodyl) 5 Mg Tablet.dr, 10 MG PO MO,WE,FR @HS, (Reported) Entered as Reported by: BILL MCCLELLAND on 09/05/18 0911 Clonazepam (Clonazepam) 2 Mg Tablet, 2 MG PO HS, (Reported) Entered as Reported by: LENA BOGGS on 09/25/172003 Diazepam (Diastat) 2.5 Mg Kit, 2.5 MG RC ONCE PRN for seizure lasting longer than 5m Prescribed by: AMBER RUVALCABA on 04/02/23 1603 Docusate Calcium (Docusate Calcium) 240 Mg Capsule, 240 MG PO DAILY, (Reported) Entered as Reported by: MADDY QUINN on 08/02/22 1430 Levetiracetam (Levetiracetam) 750 Mg Tablet, 750 MG PO BID, (Reported) Entered as Reported by: PIETRO LOMELI on 02/16/23 0752 Levetiracetam (Keppra) 1,000 Mg Tablet, 1,000 MG PO BID Prescribed by: AMBER RUVALCABA on 04/02/23 1452 Loratadine (Loratadine) 10 Mg Tablet, 10 MG PO DAILY, (Reported) Entered as Reported by: BILL MCCLELLAND on 09/26/17 1039 Magnesium Hydroxide (Milk of Magnesia) 400 Mg/5 Ml Oral.susp, 30 ML PO DAILY PRN for CONSTIPATION-7TH LINE, (Reported) Entered as Reported by: BILL MCCLELLAND on 09/26/17 1039 Mirtazapine (Mirtazapine) 15 Mg Tab.rapdis, 15 MG PO HS Prescribed by: MAU BUENROSTRO on 02/17/23 0832 Montelukast Sodium (Montelukast Sodium) 10 Mg Tablet, 10 MG PO DAILY, (Reported) Entered as Reported by: MADDY QUINN on 08/02/22 1430 Multivitamin (Multivitamins) 1 Each Tablet, 1 TAB PO DAILY, (Reported) Entered as Reported by: BILL MCCLELLAND on 09/05/18 0911 Review of Systems Review of Systems Constitutional: see HPI Unable to obtain from patient due to baseline nonverbal state Past Gvxxkmr-Hnsdos-Bwjjvj Hx Patient Social History Tobacco Use?: No Substance use?: No Alcohol Use?: No Pt feels they are or have been: No Immunizations Up To Date Tetanus Booster (TDap): Unknown First/Initial COVID19 Vaccinat: AUGUST 2020 Second COVID19 Vaccination Ezra: SEPTEMBER 2020 Third COVID19 Vaccination Date: AUGUST 2020 Seasonal Allergies Seasonal Allergies: Yes Past Medical History Surgery/Hospitalization HX: SEIZURES, SEVERE AUTISM, NON VERBAL Surgeries: Yes (RT EYE) Respiratory: No Cardiac: Yes (PVC'S) Neurological: Yes Developmental Disorder, Seizure Disorder Reproductive Disorders: No Genitourinary: No Gastrointestinal: Yes (nausea) Chronic Constipation Musculoskeletal: No Endocrine: No HEENT: No Cancer: No Psychosocial: Yes (AUTISM,OCD,INTELLECTUAL DISORDER) Anxiety, Bipolar Integumentary: No Blood Disorders: No Family Medical History Seizure disorder twin sister Physical Exam Vital Signs Vital Signs - First Documented 04/02/23 04/02/23 12:05 17:55 Pulse 98 Resp 18 B/P (MAP) 147/84 (105) Pulse Ox 100 O2 Delivery Room Air Capillary Refill : Less Than 3 Seconds Height, Weight, BMI Height: 5'6.00" Weight: 145lbs. 0.0oz. 65.701219mb; BMI Method:Estimated General Appearance: thin HEENT: PERRL/EOMI, other (edentulous) Respiratory: no respiratory distress, no accessory muscle use, other (occ crackeles) Cardiovascular: regular rate, rhythm Gastrointestinal: soft; No distended Back: normal inspection Neurologic/Psychiatric: alert (eyes open when she arrived. does not follow commands. non verbal (baseline)) Skin: normal color, warm/dry Procedures/Interventions Suture Size: 5-0 Progress/Results/Core Measures Results/Orders Lab Results Laboratory Tests Test 04/02/23 12:10 04/02/23 12:18 04/02/23 14:00 Range/Units White Blood Count 7.6 4.3-11.0 10^3/uL Red Blood Count 3.48 L 3.80-5.11 10^6/uL Hemoglobin 9.8 L 11.5-16.0 g/dL Hematocrit 33 L 35-52 % Mean Corpuscular Volume 95 80-99 fL Mean Corpuscular Hemoglobin 28 25-34 pg Mean Corpuscular Hemoglobin Concent 30 L 32-36 g/dL Red Cell Distribution Width 16.4 H 10.0-14.5 % Platelet Count 147 130-400 10^3/uL Mean Platelet Volume 10.9 9.0-12.2 fL Immature Granulocyte % (Auto) 1 % Neutrophils (%) (Auto) 78 H 42-75 % Lymphocytes (%) (Auto) 13 12-44 % Monocytes (%) (Auto) 7 0-12 % Eosinophils (%) (Auto) 0 0-10 % Basophils (%) (Auto) 0 0-10 % Neutrophils # (Auto) 6.0 1.8-7.8 10^3/uL Lymphocytes # (Auto) 1.0 1.0-4.0 10^3/uL Monocytes # (Auto) 0.5 0.0-1.0 10^3/uL Eosinophils # (Auto) 0.0 0.0-0.3 10^3/uL Basophils # (Auto) 0.0 0.0-0.1 10^3/uL Immature Granulocyte # (Auto) 0.1 0.0-0.1 10^3/uL Percent Immature Platelet Fraction 6.3 0.0-7.6 % Sodium Level 143 135-145 MMOL/L Potassium Level 5.3 H 3.6-5.0 MMOL/L Chloride Level 107 98-107 MMOL/L Carbon Dioxide Level 16 L 21-32 MMOL/L Anion Gap 20 H 5-14 MMOL/L Blood Urea Nitrogen 16 7-18 MG/DL Creatinine 0.83 0.60-1.30 MG/DL Estimat Glomerular Filtration Rate 76 BUN/Creatinine Ratio 19 Glucose Level 90 70-105 MG/DL Calcium Level 9.2 8.5-10.1 MG/DL Corrected Calcium 9.6 8.5-10.1 MG/DL Total Bilirubin 0.1 0.1-1.0 MG/DL Aspartate Amino Transf (AST/SGOT) 36 H 5-34 U/L Alanine Aminotransferase (ALT/SGPT) 39 0-55 U/L Alkaline Phosphatase 115 40-136 U/L Total Creatine Kinase 238 H 29-168 U/L Total Protein 7.3 6.4-8.2 GM/DL Albumin 3.5 3.2-4.5 GM/DL Glucometer 90 70-110 MG/DL Urine Color YELLOW Urine Clarity CLEAR Urine pH 6.0 5-9 Urine Specific [place] >=1.030 1.016-1.022 Urine Protein TRACE H NEGATIVE Urine Glucose (UA) NEGATIVE NEGATIVE Urine Ketones TRACE H NEGATIVE Urine Nitrite NEGATIVE NEGATIVE Urine Bilirubin NEGATIVE NEGATIVE Urine Urobilinogen 0.2 < = 1.0 MG/DL Urine Leukocyte Esterase NEGATIVE NEGATIVE Urine RBC (Auto) NEGATIVE NEGATIVE Urine RBC NONE /HPF Urine WBC NONE /HPF Urine Squamous Epithelial Cells RARE /HPF Urine Crystals NONE /LPF Urine Bacteria NEGATIVE /HPF Urine Casts NONE /LPF Urine Mucus NEGATIVE /LPF Urine Culture Indicated NO My Orders Orders - AMBER RUVALCABA MD Lorazepam Injection (Lorazepam Injection (04/02/23 12:15) Ed Iv/Invasive Line Start (04/02/23 12:16) Cbc And Automated Diff (04/02/23 12:16) Comprehensive Metabolic Panel (04/02/23 12:16) Ua Culture If Indicated (04/02/23 12:16) Creatine Kinase (04/02/23 12:16) Ct Head Wo (04/02/23 12:16) Levetiracetam 1000 Mg/Ns 100ml (Keppra I (04/02/23 12:16) Ns Iv 500 Ml (Ns Iv 500 Ml) (04/02/23 12:16) Levetiracetam 1000 Mg/Ns 100ml (Keppra I (04/02/23 12:17) Lorazepam Injection (Lorazepam Injection (04/02/23 13:19) Medications Given in ED Vital Signs/I&O 04/02/23 04/02/23 12:05 17:55 Pulse 98 81 Resp 18 16 B/P (MAP) 147/84 (105) 148/83 Pulse Ox 100 96 O2 Delivery Room Air Blood Pressure Mean: 105 Progress Progress Note #1: Time: 13:32 Progress Note Caregiver in room called possible "seizure" activity to our attention - she was having slight twitching of thumb and foot - nothing similar to her presentation. VS showed pulse ox had dropped to abut 90%, shortly after entered the room the activity seemed to stop. Pulse ox back up to 95%. Progress Note #2: Time: 14:45 Progress Note evaluation today includes physical exam, CBC, CMP, total CK, UA and CT head without contrast. Pertinent physical exam findings, thin chronically ill appearing femal in NAD. Lying curled up on her right side. Nonverbal (at baseline). Not really making eye contact or vocalizing to anyone. Heart is regular. Lungs ronchus throughout with normal Pulse ox. Heart is regular. Abdo men is soft. She appears to be moving all extremities - no lateralizing neurologic findings. ddx includes UTI, dehydration; electrolyte derangement; Patient's labs independently reviewed and interpreted by me. HIstory from independent historian (patient nonverbal). CBC shows mild anemia (patient's baseline) Hgb 9.8 and Hct 33. Chem remarkable for slightly increased potassium of 5.3, slightly low CO2 at 16. AG of 20. Glucose 90 - the rest is WNL. Her total CK is slightly elevated at 238. UA concentrated at sp gravity > 1.030 without signs of infections. CT head read by radiologist - no acute findings. Patient treated in the ER with 1000mg of IV [id number] and a 500ml NS fluid bolus. She did have the one episode of generalized tonic clonic seizure of about 30sec duration. It spontaneously resolved. She did get ativan 0.5mg for her baseline "staring type" seizures later in the visit. I discussed plan of care with her caregivers. No findings to warrant emergent hospitalization. I encouraged follow up with a neurologist. I increased her keppra to 1000mg twice a day from the 750mg she is currently taking and provided a prescription for diastat should she have prolonged seizures. I think at this time she is stable for discharge - I provided return precautions in both verbal and written format. All questions were sought and answered to caregiver's satisfaction. Diagnostic Imaging Diagonstic Imaging: CT Comments [facility]. [place], [place] NAME: ARIELLE HUBBARD [facility] REC#: [id number] PT STATUS: REG ER : 1955 PHYSICIAN: AMBER RUVALCABA MD ADMIT DATE: 04/02/23/ER Draft Date of Exam:04/02/23 CT HEAD WO PROCEDURE: CT head without contrast. TECHNIQUE: Multiple contiguous axial images were obtained through the brain without the use of intravenous contrast. Auto Exposure Controls were utilized during the CT exam to meet ALARA standards for radiation dose reduction. INDICATION: 68-year-old female, several seizures today with change in seizure morphology. Postictal, combative. CORRELATION STUDY: CT head of 02/15/2023. FINDINGS: Ventricles and sulci appear unchanged with cavum vergae present. There is no midline shift or mass effect. No new areas of decreased attenuation to suggest edema. No intracranial hemorrhage. No asymmetric hyperdense intracranial vascular sign. Bony calvarium is intact. Edentulous. Globes with asymmetric right lens replacement. IMPRESSION: 1. Stable noncontrast CT imaging of the head demonstrates no significant interval change or acute abnormality. Dictated on workstation # [id number] Dict: 04/02/23 1254 Trans: 04/02/23 1323 [id number] Interpreted by: ARABELLA CLAROS DO Electronically signed by: Departure Impression Primary Impression: Seizures Disposition: 01 HOME, SELF-CARE Condition: Stable Departure-Patient Inst. Decision time for Depature: 14:49 Referrals: EVE SOSA DO (PCP/Family) Primary Care Physician Patient Instructions: LOCAL PHYSICIAN LIST Add. Discharge Instructions: I am going to increase her Keppra dose to 100mg twice a day. She did have a dose of 100mg today while in the ER. You can use the rectal Valium if she has a seizure that lasts longer than 5 minutes - after applying, she likely needs to be re-evaluated in the ER for a seizure that lasts that long. She also may be a little more sleepy this afternoon as she had a dose of Ativan IV while here. She needs to follow up with a seizure doctor. They have some Neurologists at [facility] in [place], if that suits your needs. [facility], [address] [place] [address], [address] [place] [address] If she has a seizure that lasts longer than 30 sec to a full minute, return to the Emergency Department for re-evaluation. I have attached the Local Physician List to this paperwork, to assist you in finding another doctor. Scripts Diazepam (Diastat) 2.5 Mg Kit 2.5 MG RC ONCE PRN for seizure lasting longer than 5m, #1 KIT apply per rectum for seizure over 5min; then to ER Prov: AMBER RUVALCABA MD 04/02/23 Levetiracetam (Keppra) 1,000 Mg Tablet 1000 MG PO BID, #60 TAB Prov: AMBER RUVALCABA MD 04/02/23 AMBER RUVALCABA MD Apr 02, 2023 12:22
[2023-04-02 12:32] LABS: BASOPHILS % (AUTO) 0 % (0-10)
[2023-04-02 12:34] LABS: EOSINOPHILS % (AUTO) 0 % (0-10); HEMATOCRIT 33 % (35-52); HEMOGLOBIN 9.8 g/dL (11.5-16.0); LYMPHOCYTES % (AUTO) 13 % (12-44); MEAN CORPUSCULAR HEMOGLOBIN 28 pg (25-34); MEAN CORPUSCULAR HGB CONC 30 g/dL (32-36); MEAN CORPUSCULAR VOLUME 95 fL (80-99); MEAN PLATELET VOLUME 10.9 fL (9.0-12.2); MONOCYTES # (AUTO) 0.5 10^3/uL (0.0-1.0); MONOCYTES % (AUTO) 7 % (0-12); NEUTROPHILS % (AUTO) 78 % (42-75); PLATELET COUNT 147 10^3/uL (130-400); WHITE BLOOD COUNT 7.6 10^3/uL (4.3-11.0)
[2023-04-02 12:45] LABS: ALBUMIN 3.5 GM/DL (3.2-4.5); POTASSIUM 5.3 MMOL/L (3.6-5.0)
[2023-04-02 12:46] LABS: CALCIUM 9.2 MG/DL (8.5-10.1)
[2023-04-02 12:47] LABS: TOTAL PROTEIN 7.3 GM/DL (6.4-8.2)
[2023-04-02 12:49] LABS: BILIRUBIN,TOTAL 0.1 MG/DL (0.1-1.0)
[2023-04-02 12:51] LABS: CREATININE SERUM 0.83 MG/DL (0.60-1.30)
--- NOTE | 2023-04-02 13:23 | Diagnostic Imaging Report ---
PROCEDURE: CT head without contrast. TECHNIQUE: Multiple contiguous axial images were obtained through the brain without the use of intravenous contrast. Auto Exposure Controls were utilized during the CT exam to meet ALARA standards for radiation dose reduction. INDICATION: 68-year-old female, several seizures today with change in seizure morphology. Postictal, combative. CORRELATION STUDY: CT head of 02/15/2023. FINDINGS: Ventricles and sulci appear unchanged with cavum vergae present. There is no midline shift or mass effect. No new areas of decreased attenuation to suggest edema. No intracranial hemorrhage. No asymmetric hyperdense intracranial vascular sign. Bony calvarium is intact. Edentulous. Globes with asymmetric right lens replacement. IMPRESSION: 1. Stable noncontrast CT imaging of the head demonstrates no significant interval change or acute abnormality. Dictated by: Dictated on workstation # [id number]
[2023-04-02 14:14] LABS: BACTERIA,URINE NEGATIVE /HPF; BILIRUBIN,URINE NEGATIVE (NEGATIVE); CLARITY,URINE CLEAR; COLOR,URINE YELLOW; GLUCOSE, URINE (UA) NEGATIVE (NEGATIVE); KETONES,URINE TRACE (NEGATIVE); LEUKOCYTE ESTERASE ,URINE NEGATIVE (NEGATIVE); NITRITE,URINE NEGATIVE (NEGATIVE); PROTEIN,URINE TRACE (NEGATIVE); SQUAMOUS EPITHELIAL CELL,UR RARE /HPF
[2023-04-02] MEDS ORDERED: LEVE100015 PO (14:52)
[2023-04-02] MEDS ORDERED: DIAZ2.5K RC (16:02)
[2023-04-02 17:55] VITALS: BP 148/83
== END 2023-04-02 18:10 | disposition home or self-care (01) ==
LOC: EDUNIT# 12:01 → ER 12:02
DX: G40.909 Epilepsy, unspecified, not intractable, without status epilepticus (principal); Z79.899 Other long term (current) drug therapy
CPT/HCPCS: 36415; 51701; 70450; 80053; 81000; 82550; 82947; 85025

== ENCOUNTER 2023-04-03 07:59 | Emergency (ER) | payer MEDICARE, MEDICAID ==
[~2023-04-03 07:59] MED LIST changes: +DIAZ2.5K RC; +LEVE100015 PO
[2023-04-03] MEDS ORDERED: LEVETIRACETAM IV ONE (08:15)
[2023-04-03] MEDS ORDERED: NS IV 1000 ML 1,000 ML IV SCH (08:15)
[2023-04-03] MEDS ORDERED: NS IV ONE (08:15)
--- NOTE | 2023-04-03 08:31 | ED Neurological Problem ---
General Chief Complaint: Neurological Problems Stated Complaint: SEIZURES Nursing Triage Note: PT BROUGHT IN BY [facility] FROM HOME WITH COMPLAINT OF SEIZURE. LAST SEIZURE WAS AT 0725 THIS MORNING. WAS SEEN YESTERDAY IN ER. Source: caregiver Exam Limitations: clinical condition History of Present Illness Date Seen by Provider: Apr 03, 2023 Time Seen by Provider: 08:04 Initial Comments Patient is a 68-year-old female who lives locally and has 24-hour caregivers he was seen and evaluated yesterday in the emergency department for breakthrough seizures. At that time she had a full work-up including CT head, full lab panel all was normal initial blood sugar was in the 130s. She was having breakthrough seizures and exhibited focal seizures in the emergency department she had been given Ativan and 1 g of Keppra IV while in the department. She was discharged with an increased dose of Keppra daily to 1 g twice daily as well as as needed rectal Valium. Patient presents via EMS this morning after having a grand mal seizure per different caregiver that was here yesterday. She did not give rectal Valium states the seizure did not last longer than a minute was roughly 30 seconds. RN from yesterday states that caregiver yesterday did not want to wait for rectal Valium instructions but wanted to get her home quickly. Apparently this was not conveyed to oncoming caregiving staff. Patient is alert however per staff she is not at her baseline. She is grabbing her head and grimacing. She does redirect with tactile stimulation and verbal stimulation. She has not had any of her medications this morning. We will reload her with 1 g of Keppra and provide 0.25 mg of Ativan. Caregiver states that patient's [facility] care physician, Dr. SOSA has arranged a neurology appointment but this is not for 6 months. Will attempt to contact primary care for further recommendations or adding antiepileptics as needed versus admission for observation. Severity: moderate Allergies and Home Medications Allergies Coded Allergies: No Known Drug Allergies (Unverified , 12/27/16) Patient Home Medication List Home Medication List Reviewed: Yes Acetaminophen (Tylenol) 325 Mg Tablet, 325 MG PO Q4H PRN for PAIN-MILD (1-4), (Reported) Entered as Reported by: BILL MCCLELLAND on 09/26/17 1039 Amoxicillin/Potassium Clav (Amox Tr-K Clv 875-125 mg Tab) 875 Mg-125 Mg Tablet, 1 EACH PO BID Prescribed by: MAU BUENROSTRO on 02/17/23 0832 Bisacodyl (Bisacodyl) 5 Mg Tablet.dr, 10 MG PO MO,WE,FR @HS, (Reported) Entered as Reported by: BILL MCCLELLAND on 09/05/18 0911 Clonazepam (Clonazepam) 2 Mg Tablet, 2 MG PO HS, (Reported) Entered as Reported by: LENA BOGGS on 09/25/172003 Diazepam (Diastat) 2.5 Mg Kit, 2.5 MG RC ONCE PRN for seizure lasting longer than 5m Prescribed by: AMBER RUVALCABA on 04/02/23 1603 Docusate Calcium (Docusate Calcium) 240 Mg Capsule, 240 MG PO DAILY, (Reported) Entered as Reported by: MADDY QUINN on 08/02/22 143 Levetiracetam (Levetiracetam) 750 Mg Tablet, 750 MG PO BID, (Reported) Entered as Reported by: PIETRO LOMELI on 02/16/23 0752 Levetiracetam (Keppra) 1,000 Mg Tablet, 1,000 MG PO BID Prescribed by: AMBER RUVALCABA on 04/02/23 1452 Loratadine (Loratadine) 10 Mg Tablet, 10 MG PO DAILY, (Reported) Entered as Reported by: BILL MCCLELLAND on 09/26/17 1039 Magnesium Hydroxide (Milk of Magnesia) 400 Mg/5 Ml Oral.susp, 30 ML PO DAILY PRN for CONSTIPATION-7TH LINE, (Reported) Entered as Reported by: BILL MCCLELLAND on 09/26/17 1039 Mirtazapine (Mirtazapine) 15 Mg Tab.rapdis, 15 MG PO HS Prescribed by: MAU BUENROSTRO on 02/17/23 0832 Montelukast Sodium (Montelukast Sodium) 10 Mg Tablet, 10 MG PO DAILY, (Reported) Entered as Reported by: MADDY QUINN on 08/02/22 1430 Multivitamin (Multivitamins) 1 Each Tablet, 1 TAB PO DAILY, (Reported) Entered as Reported by: BILL MCCLELLAND on 09/05/18 0911 Review of Systems Review of Systems Constitutional: no symptoms reported Eyes: No Symptoms Reported Ears, Nose, Mouth, Throat: no symptoms reported Cardiovascular: no symptoms reported Gastrointestinal: no symptoms reported Genitourinary: no symptoms reported : No Musculoskeletal: no symptoms reported Skin: no symptoms reported Psychiatric/Neurological: See HPI, Tonic Clonic Seizures Endocrine: No Symptoms Reported All Other Systems Reviewed Negative Unless Noted: Yes Past Vdekofr-Gvsgys-Vnzyqf Hx Patient Social History Tobacco Use?: No Use of E-Cig and/or Vaping dev: No Substance use?: No Alcohol Use?: No Pt feels they are or have been: No Immunizations Up To Date Tetanus Booster (TDap): Unknown First/Initial COVID19 Vaccinat: AUGUST 2020 Second COVID19 Vaccination Ezra: SEPTEMBER 2020 Third COVID19 Vaccination Date: AUGUST 2020 Seasonal Allergies Seasonal Allergies: Yes Past Medical History Surgery/Hospitalization HX: SEIZURES, SEVERE AUTISM, NON VERBAL Surgeries: Yes (RT EYE) Respiratory: No Cardiac: Yes (PVC'S) Neurological: Yes Developmental Disorder, Seizure Disorder Reproductive Disorders: No Genitourinary: No Gastrointestinal: Yes (nausea) Chronic Constipation Musculoskeletal: No Endocrine: No HEENT: No Cancer: No Psychosocial: Yes (AUTISM,OCD,INTELLECTUAL DISORDER) Anxiety, Bipolar Integumentary: No Blood Disorders: No Family Medical History Seizure disorder twin sister Physical Exam Vital Signs Vital Signs - First Documented 04/03/23 08:00 Temp 37.1 Pulse 87 Resp 17 B/P (MAP) 158/86 (110) Pulse Ox 90 O2 Delivery Room Air Capillary Refill : Height, Weight, BMI Height: 5'6.00" Weight: 145lbs. 0.0oz. [id number]; BMI Method:Estimated General Appearance: mild distress HEENT: PERRL/EOMI Neck: full range of motion Respiratory: chest non-tender, lungs clear, normal breath sounds, no respiratory distress, no accessory muscle use Cardiovascular: regular rate, rhythm, no edema Gastrointestinal: normal bowel sounds, non tender, soft Back: normal inspection Extremities: normal range of motion Neurologic/Psychiatric: other (Patient is currently nonverbal grasping her head but does respond to tactile and verbal stimulation) Skin: normal color, other (Has areas of superficial scratches, self-inflicted) Procedures/Interventions Suture Size: 5-0 Progress/Results/Core Measures Results/Orders Lab Results Laboratory Tests Test 04/03/23 08:07 Range/Units My Orders Orders - BILL GABRIEL W DO Levetiracetam Injection (Levetiracetam I (04/03/23 08:15) Ed Iv/Invasive Line Start (04/03/23 08:11) Ns Iv 1000 Ml (Ns Iv 1000 Ml) (04/03/23 08:15) Lorazepam Injection (Lorazepam Injection (04/03/23 08:15) Levetiracetam Level (Keppra) (04/03/23 08:11) Ketorolac Injection (Ketorolac Injection (04/03/23 09:00) Pu4: Pureed Diet (04/03/23 Breakfast) Chest 1 View, Ap/Pa Only (04/03/23 12:52) Medications Given in ED Current Medications Medications Dose Ordered Sig/Bernardino Route Start Time Stop Time Status Last Admin Dose Admin Ketorolac Tromethamine 15 mg ONCE ONCE IVP 04/03/23 09:00 04/03/23 09:01 DC 04/03/23 09:01 15 MG Levetiracetam 1000 mg/Sodium Chloride 60 ml @ 100 mls/hr ONCE ONCE IV 04/03/23 08:15 04/03/23 08:50 DC 04/03/23 08:23 100 MLS/HR Lorazepam 0.25 mg Q8HR PRN IVP 04/03/23 08:15 04/03/23 08:23 0.25 MG Vital Signs/I&O 04/03/23 08:00 Temp 37.1 Pulse 87 Resp 17 B/P (MAP) 158/86 (110) Pulse Ox 90 O2 Delivery Room Air Blood Pressure Mean: 110 Progress Progress Note : Progress Note [id number] spoke with patient's primary, Dr. SOSA reviewed yesterday's visit and results as well as today's presentation. He would like to see her in his office tomorrow and expedite neurology appointment agrees with plan to increase her Keppra to 2 g daily. She will receive 1 g here in the emergency department. Agrees with Diastat as needed caregiver today is on board with this plan. We will provide her some applesauce to ensure that she will take food by mouth. She does typically eat pured consistency foods. Caregiver agrees with this plan as well. Patient is opening her eyes and looking around at this time. Consults : Consults Notes [id number] Erwin at [facility], states no on staff neurologist but they do have teleneurology she agrees to take patient in transfer to [facility] telemetry. Follow-up with PCP to: Discuss Further Options Departure Communication (PCP) Recently agreed to see patient in clinic tomorrow however due to patient's inability to take oral sustenance in home health care nurses unable to feed her will transfer to an appropriate facility. Hospitalist here requires transfer to a facility with neuro availability. Impression Primary Impression: Breakthrough seizure Additional Impression: Decreased oral intake Disposition: XFER SHT-TRM HOSP Condition: Stable Transfer Transfer Reason: Exceeds level of care Time Spoke to Accepting Phy: 13:27 (Dr Erwin) Transfer Progress Notes Patient has remained stable no more seizure activity while in the emergency department. Transfer Time: 13:29 Transfer Facility: [facility] Method of Transfer: EMS Departure-Patient Inst. Decision time for Depature: 08:43 Referrals: EVE SOSA DO (PCP/Family) Primary Care Physician BILL GABRIEL DO Apr 03, 2023 08:31
[2023-04-03] MEDS ORDERED: KETOROLAC INJ 15 MG/ML VIAL IVP ONE (09:00)
--- NOTE | 2023-04-03 14:02 | Diagnostic Imaging Report ---
EXAMINATION: Chest, one view. HISTORY: Seizure. COMPARISON: 02/23/2023. FINDINGS: No focal consolidation is seen. No large pleural effusion or pneumothorax is seen. Stable cardiac silhouette. A large hiatal hernia is seen. There is calcified aortic atherosclerotic plaque. No acute osseous abnormality is seen. IMPRESSION: 1. No acute pleural-parenchymal process. 2. Stable large hiatal hernia. Dictated by: Dictated on workstation # [id number]
[2023-04-03 18:18] VITALS: BP 166/81
== END 2023-04-03 19:09 | disposition short-term general hospital (02) ==
LOC: EDUNIT# 07:59 → ER 08:00
DX: G40.909 Epilepsy, unspecified, not intractable, without status epilepticus (principal); R63.8 Other symptoms and signs concerning food and fluid intake
CPT/HCPCS: 36415; 71045; 80177